=== PATIENT | female | born 1960 | race American Indian/Alaskan Native ===

== ENCOUNTER 2016-05-06 15:21 | Inpatient (IN) | payer MEDICARE ==
[2016-05-06] MEDS ORDERED: ZOFRAN IV ONE (16:41)
[2016-05-06] MEDS ORDERED: NACL 0.9% 1000 ML 1,000 ML IV ONE ×2 (16:41→17:50)
[2016-05-06] MEDS ORDERED: MORPHINE IV ONE ×2 (16:41→19:11)
[2016-05-06] MEDS ORDERED: TORADOL IV ONE (16:41)
[2016-05-06 16:52] LABS: Bilirubin,Urine NEG (Negative); Blood,Urine MOD (Negative); Ketones,Urine NEG (Negative); Leukocyte Esterase,Urine NEG (Negative); Mucus,Urine FEW /HPF; Nitrite,Urine NEG (Negative); Urobilinogen,Urine < 2.0 mg/dL (<2.0)
--- NOTE | 2016-05-06 17:02 | Emergency Department Report ---
ED Abdominal Pain HPI - General Chief Complaint: Abdominal Pain Stated Complaint: ABD PAIN Time Seen by Provider: 05/06/16 16:24 Source: patient, EMS, old records reviewed (cardiac cath April 2015: Mild nonobstructive irregularities, no significant CAD, EF 50-55%) Mode of arrival: Stretcher Limitations: No Limitations - History of Present Illness Initial Comments: 55-year-old female with a past medical history of previous CVA, HIV, diabetes, hypertension, depression, neuropathy and previous surgical history of hysterectomy, hernia repair, and presents to the hospital complaints of abdominal pain, nausea, and vomiting since this morning. Pain is rated the right upper and lower abdomen, constant, aching in sensation and rated 10/10 intensity. Pain is worse with palpation. No alleviating factors. Denies fever , hematochezia, diarrhea, melena, hematemesis, or dysuria. - Related Data Home Medications Medication Instructions Recorded Confirmed Last Taken Metformin HCl [Fortamet ER] 1,000 mg PO BID 12/15/14 04/06/15 04/06/15 Labetalol HCl 100 mg PO TID 04/06/15 04/06/15 04/06/15 Pravastatin Sodium [Pravastatin] 40 mg PO QHS 04/06/15 04/06/15 04/06/15 Previous Rx's Medication Instructions Recorded Last Taken Type Aspirin EC [Aspirin Enteric Coated 325 mg PO QDAY #30 tablet 04/09/15 Unknown Rx TAB] Allergies Allergy/AdvReac Type Severity Reaction Status Date / Time lisinopril Allergy Angioedema Verified 12/15/14 16:33 ED Review of Systems ROS: Stated complaint: ABD PAIN Other details as noted in HPI Comment: All other systems reviewed and negative Other: Constitutional: No fevers chills Eyes: No eye pain visual changes ENT: No ear pain or throat pain Neck: Denies pain Respiratory: Denies cough wheezing shortness of breath Cardiovascular: Denies chest pain, palpitations, syncope GI: As per HPI : Denies dysuria Musculoskeletal: Denies back pain, joint swelling Skin: Denies rash, lesions, erythema Neurologic: Denies headache, numbness, weakness Psychiatric: Denies suicidal ideation, hallucinations ED Past Medical Hx - Past Medical History Previous Medical History?: Yes Hx Hypertension: Yes Hx CVA: Yes Hx Diabetes: Yes Hx Psychiatric Treatment: Yes (DEPRESSION) Hx HIV: Yes (CD4 350 Apr 2016) Additional medical history: NEUROPATHY - Surgical History Past Surgical History?: Yes Additional Surgical History: C SECTION. hysterectomy. hernia repair - Social History Smoking Status: Current Every Day Smoker Substance Use Type: None - Medications Home Medications: Home Medications Medication Instructions Recorded Confirmed Last Taken Type Metformin HCl [Fortamet ER] 1,000 mg PO BID 12/15/14 04/06/15 04/06/15 History Labetalol HCl 100 mg PO TID 04/06/15 04/06/15 04/06/15 History Pravastatin Sodium [Pravastatin] 40 mg PO QHS 04/06/15 04/06/15 04/06/15 History Aspirin EC [Aspirin Enteric Coated 325 mg PO QDAY #30 tablet 04/09/15 Unknown Rx TAB] ED Physical Exam - General Limitations: No Limitations - Other Other exam information: General: No limitations, patient is alert in moderate distress secondary to pain Head exam: Atraumatic, normocephalic Eyes exam: Normal appearance, pupils equal reactive to light, extraocular movements intact ENT: Moist mucous membrane Neck exam: Normal inspection, full range of motion Respiratory exam: Clear to auscultation bilateral, no wheezes, rales, crackles Cardiovascular: Normal rate and rhythm, normal heart sounds Abdomen: Soft, nondistended, right upper and right lower quadrant tenderness, with normal bowel sounds, no rebound, or guarding Extremity: Full range of motion normal inspection no deformity Back: Normal Inspection, full range of motion, no tenderness Neurologic: Alert, oriented x3, cranial nerves intact, chronic leg weakness Psychiatric: normal affect, normal mood Skin: Warm, dry, intact ED Course Vital Signs 05/06/16 05/06/16 05/06/16 15:43 15:58 16:00 Temperature 98.2 F Pulse Rate 84 Pulse Rate [ Posterior Bilateral Throughout] Respiratory 18 Rate Respiratory Rate [Posterior Bilateral Throughout] Blood Pressure 194/100 188/103 O2 Sat by Pulse 100 99 100 Oximetry 05/06/16 05/06/16 05/06/16 16:30 17:00 17:30 Temperature Pulse Rate 91 H 93 H Pulse Rate [ Posterior Bilateral Throughout] Respiratory 10 L 31 H Rate Respiratory Rate [Posterior Bilateral Throughout] Blood Pressure 177/82 183/91 182/90 O2 Sat by Pulse 97 84 88 Oximetry 05/06/16 05/06/1617 17:41 18:00 18:03 Temperature Pulse Rate 95 H Pulse Rate [ 94 H Posterior Bilateral Throughout] Respiratory 18 20 Rate Respiratory 16 Rate [Posterior Bilateral Throughout] Blood Pressure 174/87 O2 Sat by Pulse 100 Oximetry 05/06/16 18:10 Temperature Pulse Rate Pulse Rate [ 96 H Posterior Bilateral Throughout] Respiratory Rate Respiratory 16 Rate [Posterior Bilateral Throughout] Blood Pressure O2 Sat by Pulse Oximetry - Reevaluation(s) Reevaluation #1: 05/06/16 19:03 Patient was treated morphine, Zofran, 2 L of normal saline, Lasix, and albuterol. - Consultations Consultation #1: 05/06/16 17:30 Dr. Samaniego consulted regarding acute renal insuficency ED Medical Decision Making - Lab Data Result diagrams: 05/06/16 16:52 05/06/16 16:16 Lab Results 05/06/16 05/06/16 05/06/16 Range/Units 16:16 16:16 16:16 WBC (4.5-11.0) K/mm3 RBC (3.65-5.03) M/mm3 Hgb (10.1-14.3) gm/dl Hct (30.3-42.9) % MCV (79-97) fl MCH (28-32) pg MCHC (30-34) % RDW (13.2-15.2) % Plt Count (140-440) K/mm3 Lymph % (Auto) (13.4-35.0) % Peach % (Auto) (0.0-7.3) % Eos % (Auto) (0.0-4.3) % Baso % (Auto) (0.0-1.8) % Lymph # (1.2-5.4) K/mm3 Peach # (0.0-0.8) K/mm3 Eos # (0.0-0.4) K/mm3 Baso # (0.0-0.1) K/mm3 Seg Neutrophils % (40.0-70.0) % Seg Neutrophils # (1.8-7.7) K/mm3 Sodium 141 (137-145) mmol/L Potassium 6.0 H (3.6-5.0) mmol/L Chloride 105.3 (98-107) mmol/L Carbon Dioxide 21 L (22-30) mmol/L Anion Gap 21 mmol/L BUN 31 H (7-17) mg/dL Creatinine 2.1 H (0.7-1.2) mg/dL Estimated GFR 30 ml/min BUN/Creatinine Ratio 14.76 % Glucose 136 H (65-100) mg/dL Calcium 9.7 (8.4-10.2) mg/dL Total Bilirubin 0.2 (0.1-1.2) mg/dL AST 57 H (5-40) units/L ALT 38 (7-56) units/L Alkaline Phosphatase 167 H (35-129) units/L Troponin T 0.809 H* (0.00-0.029) ng/mL Total Protein 9.4 H (6.3-8.2) g/dL Albumin 4.1 (3.9-5) g/dL Albumin/Globulin Ratio 0.8 % Triglycerides 143 (2-149) mg/dL Cholesterol 169 (50-199) mg/dL LDL Cholesterol Direct 94 (50-130) mg/dL HDL Cholesterol 47 (40-59) mg/dL Cholesterol/HDL Ratio 3.59 % Lipase 57 (13-60) units/L Urine Color Straw (Yellow) Urine Turbidity Clear (Clear) Urine pH 5.0 (5.0-7.0) Ur Specific Cameron 1.010 (1.003-1.030) Urine Protein 100 mg/dl (Negative) mg/dL Urine Glucose (UA) Neg (Negative) mg/dL Urine Ketones Neg (Negative) mg/dL Urine Blood Mod (Negative) Urine Nitrite Neg (Negative) Urine Bilirubin Neg (Negative) Urine Urobilinogen < 2.0 (<2.0) mg/dL Ur Leukocyte Esterase Neg (Negative) Urine WBC (Auto) 1.0 (0.0-6.0) /HPF Urine RBC (Auto) 9.0 (0.0-6.0) /HPF U Epithel Cells (Auto) 3.0 (0-13.0) /HPF Urine Mucus Few /HPF Urine Yeast (Budding) Few /HPF 05/06/16 Range/Units 16:52 WBC 8.5 (4.5-11.0) K/mm3 RBC 4.18 (3.65-5.03) M/mm3 Hgb 12.8 (10.1-14.3) gm/dl Hct 38.3 (30.3-42.9) % MCV 92 (79-97) fl MCH 31 (28-32) pg MCHC 33 (30-34) % RDW 14.9 (13.2-15.2) % Plt Count 275 (140-440) K/mm3 Lymph % (Auto) 12.1 L (13.4-35.0) % Peach % (Auto) 5.0 (0.0-7.3) % Eos % (Auto) 0.8 (0.0-4.3) % Baso % (Auto) 0.4 (0.0-1.8) % Lymph # 1.0 L (1.2-5.4) K/mm3 Peach # 0.4 (0.0-0.8) K/mm3 Eos # 0.1 (0.0-0.4) K/mm3 Baso # 0.0 (0.0-0.1) K/mm3 Seg Neutrophils % 81.7 H (40.0-70.0) % Seg Neutrophils # 6.9 (1.8-7.7) K/mm3 Sodium (137-145) mmol/L Potassium (3.6-5.0) mmol/L Chloride (98-107) mmol/L Carbon Dioxide (22-30) mmol/L Anion Gap mmol/L BUN (7-17) mg/dL Creatinine (0.7-1.2) mg/dL Estimated GFR ml/min BUN/Creatinine Ratio % Glucose (65-100) mg/dL Calcium (8.4-10.2) mg/dL Total Bilirubin (0.1-1.2) mg/dL AST (5-40) units/L ALT (7-56) units/L Alkaline Phosphatase (35-129) units/L Troponin T (0.00-0.029) ng/mL Total Protein (6.3-8.2) g/dL Albumin (3.9-5) g/dL Albumin/Globulin Ratio % Triglycerides (2-149) mg/dL Cholesterol (50-199) mg/dL LDL Cholesterol Direct (50-130) mg/dL HDL Cholesterol (40-59) mg/dL Cholesterol/HDL Ratio % Lipase (13-60) units/L Urine Color (Yellow) Urine Turbidity (Clear) Urine pH (5.0-7.0) Ur Specific Cameron (1.003-1.030) Urine Protein (Negative) mg/dL Urine Glucose (UA) (Negative) mg/dL Urine Ketones (Negative) mg/dL Urine Blood (Negative) Urine Nitrite (Negative) Urine Bilirubin (Negative) Urine Urobilinogen (<2.0) mg/dL Ur Leukocyte Esterase (Negative) Urine WBC (Auto) (0.0-6.0) /HPF Urine RBC (Auto) (0.0-6.0) /HPF U Epithel Cells (Auto) (0-13.0) /HPF Urine Mucus /HPF Urine Yeast (Budding) /HPF - EKG Data -: EKG Interpreted by Me ([id number] 97 [id number]) - Radiology Data Radiology results: report reviewed CT abdomen and pelvis without contrast: Cholelithiasis. Mild right hydroureter and right hydronephrosis may be secondary to recent obstruction. Small calcifications close to the mid right ureter that are not definitely within the ureter however. Previous hysterectomy - Medical Decision Making Patient has chronic troponin elevation compared to previous values in repeat is pending. Patient also has acute on chronic renal insufficiency at this time.Potassium was 6 and slightly hemolyzed. Repeat pending. Patient was treated with Lasix and albuterol for hyperkalemia pending repeat potassium level. 2 L and no Felipa also provided for hydration. Admit patient to the hospital for further hydration and treatment - Differential Diagnosis cholecystitis, appendicitis, diverticulitis, gastritis, UTI, pancreatitis Critical Care Time: No Critical care attestation.: If time is entered above; I have spent that time in minutes in the direct care of this critically ill patient, excluding procedure time. ED Disposition Clinical Impression: EDUARDO (acute kidney injury), HIV (human immunodeficiency virus infection), Renal colic on right side, Cholelithiasis, Hyperkalemia, Dehydration, Elevated troponin Disposition: OP ADMITTED IP TO THIS HOSP Is pt being admited?: Yes Condition: Stable Time of Disposition: 19:06 (Dr Villavicencio/hosp)
[2016-05-06] MEDS ORDERED: MORPHINE ONE (17:04)
[2016-05-06] MEDS ORDERED: ASPIRIN PO ONE (17:05)
[2016-05-06 17:06] LABS: Albumin 4.1 g/dL (3.9-5); Albumin/Globulin Ratio 0.8 %; BUN/Creatinine Ratio 14.76; Bilirubin,Total 0.2 mg/dL (0.1-1.2); Calcium 9.7 mg/dL (8.4-10.2); Chloride 105.3 mmol/L (98-107); Total Protein 9.4 g/dL (6.3-8.2)
[2016-05-06 17:07] LABS: Basophils % (Auto) 0.4 % (0.0-1.8); Eosinophils % (Auto) 0.8 % (0.0-4.3); Hematocrit 38.3 % (30.3-42.9); Hemoglobin 12.8 gm/dl (10.1-14.3); Mean Corpuscular HGB Conc 33 % (30-34); Mean Corpuscular Hemoglobin 31 pg (28-32); Mean Corpuscular Volume 92 fl (79-97); Platelet Count 275 K/mm3 (140-440); Red Blood Count 4.18 M/mm3 (3.65-5.03); Red Cell Distribution Width 14.9 % (13.2-15.2); White Blood Count 8.5 K/mm3 (4.5-11.0)
[2016-05-06] MEDS ORDERED: PROVENTIL IH ONE (17:50)
[2016-05-06] MEDS ORDERED: LASIX IV ONE ×2 (17:52→17:53)
--- NOTE | 2016-05-06 18:40 | Cat Scan Report ---
FINAL REPORT PROCEDURE: CT abdomen and pelvis without contrast. TECHNIQUE: Computerized axial tomography of the abdomen and pelvis was performed without intravenous contrast. This study is performed without intravascular contrast material and its sensitivity for abdominal and pelvic pathology, including neoplasms, inflammation, abscess, free fluid, thrombosis, arterial dissection and infarction, is reduced compared with a contrast enhanced study. HISTORY: Right-sided abdominal pain. COMPARISON: No prior studies are available for comparison. FINDINGS: The lung bases are clear. There are no pleural effusions. The heart size is normal. There is probably a tiny cyst in the left lobe of the liver. There are some small calcified gallstones. There is no biliary dilatation. The spleen and pancreas are grossly normal. The adrenal glands are not enlarged. Both kidneys appear normal in size and configuration. There is mild infiltration of the fat adjacent to the right kidney. There is mild right hydronephrosis and hydroureter. There are several tiny calcifications near the mid and lower portions of the right ureter. I am not convinced that these calcifications are within the ureter however. They may represent phleboliths. The right hydronephrosis and hydroureter could be secondary to a recently passed calculus. A retrograde pyelogram or intravenous pyelogram could be considered for further evaluation. The abdominal aorta has a normal caliber. There is no definite retroperitoneal adenopathy. The unopacified gastrointestinal tract is unremarkable. A normal appendix is visible. The bladder is unremarkable. The uterus has been removed. The regional skeleton appears intact. IMPRESSION: Cholelithiasis. Mild right hydronephrosis and hydroureter which may be secondary to recent obstruction. Small calcifications close to the mid right ureter which are not definitely within the ureter however. Previous hysterectomy.
--- NOTE | 2016-05-06 19:22 | Admit Criteria Form ---
Admission Criteria Documentation: RENAL FAILURE, ACUTE Clinical Indications for Admission to Inpatient Care ( Place 'X' for any and all applicable criteria): Admission is indicated for ALL (if I & II) or III of the following [A](2)(3)(4)( 5)(6)(7): [ ]I. Acute renal failure as indicated by ANY ONE of the following: [ ]a) A 3-fold rise in serum creatinine from baseline [ ]b) Serum creatinine greater than 4 mg/dL (354 micromoles/L) with an acute rise greater than 0.5 mg/dL (44.2 micromoles/L) [ ]c) Reduction of more than 75% in estimated glomerular filtration rate from baseline [ ]d) Estimated glomerular filtration rate less than 35 mL/min/1.73m2 (0.59mL/sec/1.73m2)in a child up to 18 years of age [ ]e) Anuria indicated by ALL of the following: [ ]i) Adequate volume status [ ]ii) Cessation of urine output indicated by ANY ONE of the following: [ ]1) Urine output less than 0.3 mL/kg/hr for 24 hours [ ]2) Anuria (urine output less than 0.1 mL/kg/ hr) for 12 hours [X] II. Renal failure cannot be managed in an outpatient setting or observational care setting as indicating by ANY ONE of the following: [ ]a) Altered mental status that is severe or persistent [ ]b) Volume overload or Respiratory distress (eg, clinically significant pulmonary edema) that is severe or persistent [ ]c) Cardiac arrhythmias of immediate concern [ ]d) Hemodynamic instability [ ]e) Clinically significant electrolyte abnormality that requires inpatient care (eg, hyperkalemia with severe ECG findings)[B] [ ]f) Clinically significant metabolic abnormality (eg, acidosis) that is severe or persistent [X]g) Acute treatment of renal failure (eg, renal replacement therapy) not feasible or appropriate in observational care setting [ ]h) Clinical situation too unstable or uncertain (eg, inadequate urine output, ongoing decline in renal function, etiology unclear) [ ]i) Necessary support and caregiver ability to comply with outpatient treatment cannot be arranged in observation care timeframe (eg, within 24 hours) [X]j) Other significant finding or clinical condition judged not to be within scope of observation care [ ]III.General contraindications and/or Inappropriate clinical situations for Observational Care in patients with Acute Renal Failure, when ANY ONE of the following is required: [ ]a) Prediction of prolongation of LOS based on ANY ONE of the following may be considered as a contraindication for observational care 2, 3, 4, 5, 6, 7, 8 , 9, 10, 11 [ ]i) Age > 65 yrs. [ ]ii) Patient arriving by ambulance [ ]iii) Patient with high acuity [ ]iv) Patient requiring vital sign monitoring [ ]v) Patient on IV medication [ ]b) Systolic blood pressures 180mmHg 3,12 [ ]c) Patient with altered mental status including delirium and other alteration of consciousness, (3) [ ]d) Patient whose discharge disposition will be to a care home home or rehabilitation home should not be managed in Emergency Department Observation Unit. CMS rule requires 3 days hospital stay before such placement.3,13 [ ]e) Patient with failure to thrive due to broad array of etiologies 3, 16,17 [ ]f) Inability to ambulate 3,14 Extended stay beyond goal length of stay may be needed for(13) [ ]a) Continuing uremic complications [ ]b) Care for comorbidities [ ]c) acute renal failure [ ]d) Need for dialysis The original [employer] content created by [employer] has been revised. The portions of the content which have been revised are identified through the use of italic text or in bold, and [facility] has neither reviewed nor approved the modified material. All other unmodified content is copyright [employer]. Please see references footnoted in the original [facility] edition 2016 Admission Criteria Met: Yes
[2016-05-06] MEDS ORDERED: REGLAN IV ONE (19:47)
[2016-05-06] MEDS ORDERED: BENADRYL IV ONE (19:47)
[2016-05-07] MEDS: PERCOCET 5/325 PO PRN ×2 (01:01→08:56)
[2016-05-07] MEDS ORDERED: D50W (25GM) IV PRN (07:55)
--- NOTE | 2016-05-07 08:46 | Consultation ---
History of Present Illness - Reason for Consult Consult date: 05/07/16 acute renal failure Medications and Allergies Allergies Allergy/AdvReac Type Severity Reaction Status Date / Time lisinopril Allergy Angioedema Verified 12/15/14 16:33 Home Medications Medication Instructions Recorded Confirmed Last Taken Type Metformin HCl [Fortamet ER] 1,000 mg PO BID 12/15/14 04/06/15 04/06/15 History Labetalol HCl 100 mg PO TID 04/06/15 04/06/15 04/06/15 History Pravastatin Sodium [Pravastatin] 40 mg PO QHS 04/06/15 04/06/15 04/06/15 History Aspirin EC [Aspirin Enteric Coated 325 mg PO QDAY #30 tablet 04/09/15 Unknown Rx TAB] Active Meds: Active Medications Aspirin (Ecotrin) 325 mg PO QDAY [facility] Dextrose (D50w (25gm)) 50 ml IV PRN PRN PRN Reason: Hypoglycemia Heparin Sodium (Porcine) (Heparin) 5,000 unit SUB-Q Q12HR [facility] Insulin Aspart (Novolog) 0 units SUB-Q QHS [facility] PRN Reason: Protocol Labetalol HCl (Normodyne) 100 mg PO TID [facility] Oxycodone/Acetaminophen (Percocet 5/325) 1 tab PO Q4H PRN PRN Reason: Pain, Moderate (4-6) Last Admin: 05/07/16 01:01 Dose: 1 tab Simvastatin (Zocor) 20 mg PO QHS [facility] Exam - Vital Signs Vital signs: Vital Signs Pulse Ox 100 05/06/16 15:43 Results - Lab Results 05/06/16 16:52 05/06/16 18:47 Most recent lab results Calcium 9.7 mg/dL (8.4-10.2) 05/06/16 16:16
[2016-05-07] MEDS: NORMODYNE PO SCH ×3 (08:54→22:59)
[2016-05-07] MEDS ORDERED: SODIUM CHLORIDE FLUSH SYRINGE 10 ML IV PRN (10:31)
--- NOTE | 2016-05-07 10:34 | Event Note ---
Date: 05/06/16 See H/p in reports-05/06/16 Acute renal failure High Troponin T2DM Hyperkalemia-Lab error Biliary colic sec to cholelithiasis HIV status HTN
[2016-05-07] MEDS ORDERED: ZOFRAN IV PRN (10:44)
[2016-05-07] MEDS ORDERED: NACL 0.9% 1000 ML 1,000 ML IV SCH (11:00)
[2016-05-07] MEDS: HEPARIN SUB-Q SCH ×2 (11:06→23:03)
[2016-05-07] MEDS: ECOTRIN PO SCH (11:06)
[2016-05-07 11:59] LABS: Creatine Kinase MB 56.6 ng/mL (0.0-4.0)
--- NOTE | 2016-05-07 12:25 | History and Physical Report ---
CHIEF COMPLAINT: Right flank pain. Nausea, vomiting since morning. HISTORY OF PRESENT ILLNESS: A 55-year-old female with a past medical history of cerebrovascular accident, HIV, diabetes, hypertension, depression, neuropathy comes in for abdominal pain, nausea, vomiting since morning. Pain is rated at 10/10. Pain is worse with palpation. No alleviating factors. No exacerbating factors. No diarrhea. Vomiting about 4-5 times a day. No fever. No chills. No shortness of breath. PAST MEDICAL HISTORY: Significant for type 2 diabetes mellitus, hypertension, hyperlipidemia, HIV, CD4 count was on 04/20/2016, cerebrovascular accident, depression, depression, and neuropathy. PAST SURGICAL HISTORY: Significant for , hysterectomy, and hernia repair. SOCIAL HISTORY: Current everyday smoker, a pack a day. FAMILY HISTORY: Significant for hypertension. CURRENT MEDICATIONS: Metformin 1000 mg twice a day, labetalol 100 mg 3 times a day, pravastatin 40 mg p.o. daily, aspirin one 325 p.o. daily. REVIEW OF SYSTEMS: Significant for right flank pain 10/10 associated with nausea and vomiting. No diarrhea. No chest pain. No shortness of breath. Otherwise, review of systems is essentially negative. A 14-point review of systems was done. PHYSICAL EXAMINATION: VITAL SIGNS: Temperature is 98.2, pulse is 84, respirations 18, blood pressure is 194/100, sats are 100%. HEENT: Unremarkable. Pupils equal and reactive. NECK: Supple. No lymphadenopathy, no thyromegaly. LUNGS: Clear to auscultation and percussion. Good air entry. CARDIOVASCULAR: S1, S2 heard. No gallop, no murmur, no rub. Apical impulse in left fifth intercostal space and midclavicular line. ABDOMEN: Tender in the right flank region. No guarding, no rigidity. Hernial orifices are normal. EXTREMITIES: Good pedal pulses. No pedal edema. CENTRAL NERVOUS SYSTEM: Alert and oriented x 4, nonfocal exam. IMAGING STUDIES: The patient has cholelithiasis on abdominal CAT scan. Mild right hydronephrosis and hydroureter which may be secondary to recent obstruction, small calcifications close to the mid right ureter, which are not definitely within the ureter, however, previous hysterectomy. No masses. EKG shows normal sinus rhythm, 97 per minute, LVH. LABORATORY DATA: Significant for white count of 8500, H and H is 12.8 and 38.3, platelet count is 275,000. Sodium is 141, potassium is 4.5, BUN and creatinine 31 and 2.1. A1c is 6.6. Troponin is high at 0.685. No CK enzymes available. Previous potassium was 6.0, which is corrected back to 4.5. ASSESSMENT AND PLAN: 1. Acute abdominal pain secondary to biliary colic. The patient may had right flank pain secondary to cholelithiasis and gallstone passed into the bile duct. CAT scan shows only cholelithiasis, no cholecystitis. Only IV fluids and pain management for the time being. Surgical consult if necessary. At this point, I do not think a surgery is necessary. 2. Hyperkalemia, spurious, corrected back to 4.5, hence no treatment for that. 3. Acute renal failure. IV fluids for the time being and Nephrology consult requested. 4. Type 2 diabetes, coverage and hemoglobin A1c 6.6, well controlled. 5. High troponin, 0.685. Cardiac enzymes ordered. Lexiscan ordered for 05/08/2016. 6. Hypertension. Continue antihypertensives. 7. Deep venous thrombosis prophylaxis, Lovenox 40 mg subcutaneous daily. JOB# [id number] VSM/NTS
[2016-05-07] MEDS: NOVOLOG SUB-Q SCH ×3 (12:46→23:10)
[2016-05-07] MEDS ORDERED: NON-FORMULARY (Gabapentin [Neurontin] 800 MG) PO SCH (14:30)
[2016-05-07] MEDS ORDERED: NON-FORMULARY (Dolutegravir Sodium [Tivicay] 50 MG) PO SCH (14:30)
--- NOTE | 2016-05-07 14:30 | Progress Note ---
Assessment and Plan Assessment and plan: Acute abdominal pain - Resolved - Patient has cholelithiasis on imaging but no cholecystitis - Surgery consult placed Acute kidney failure - Continue on IV fluid - Nephrology consult is placed Type 2 diabetes mellitus - Sliding scale insulin High troponin level - No chest pain - Cardiology consult placed Hypertension - Continue on antihypertensives HIV/AIDS - Patient is taking medications - Her last CD4 count was 315 Depression/ crying spells - Mental health consult placed Right knee pain likely from osteoarthritis - Continue pain medications - Physical therapy consult DVT prophylaxis - Lovenox Disposition - Continue inpatient care History Interval history: Patient states abdominal pain is getting better, she complains that she is not able to flex her knee. She says she was diagnosed with osteoarthritis. Hospitalist Physical - Physical exam Narrative exam: Not in cardiopulmonary distress. The patient appeared well nourished and normally developed. Vital signs as documented. Head exam is unremarkable. No scleral icterus . Neck is without jugular venous distension, thyromegaly, or carotid bruits. Lungs are clear to auscultation. Cardiac exam reveals regular rate and Rhythm. First and second heart sounds normal. No murmurs, rubs or gallops. Abdominal exam reveals normal bowel sounds, no masses, no organomegaly and no aortic enlargement. Extremities no swelling of the knee. 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 No focal weakness. - Constitutional Vitals: Temp Pulse Resp BP Pulse Ox 98.0 F 68 16 168/80 98 05/07/16 08:00 05/07/16 13:40 05/07/16 08:00 05/07/16 08:54 05/07/16 08:00 Results - Labs CBC & Chem 7: 05/06/16 16:52 05/06/16 18:47 Labs: Laboratory Last Values WBC 8.5 K/mm3 (4.5-11.0) 05/06/16 16:52 RBC 4.18 M/mm3 (3.65-5.03) 05/06/16 16:52 Hgb 12.8 gm/dl (10.1-14.3) 05/06/16 16:52 Hct 38.3 % (30.3-42.9) 05/06/16 16:52 MCV 92 fl (79-97) 05/06/16 16:52 MCH 31 pg (28-32) 05/06/16 16:52 MCHC 33 % (30-34) 05/06/16 16:52 RDW 14.9 % (13.2-15.2) 05/06/16 16:52 Plt Count 275 K/mm3 (140-440) 05/06/16 16:52 Lymph % (Auto) 12.1 % (13.4-35.0) L 05/06/16 16:52 [place] % (Auto) 5.0 % (0.0-7.3) 05/06/16 16:52 Eos % (Auto) 0.8 % (0.0-4.3) 05/06/16 16:52 Baso % (Auto) 0.4 % (0.0-1.8) 05/06/16 16:52 Lymph # 1.0 K/mm3 (1.2-5.4) L 05/06/16 16:52 [place] # 0.4 K/mm3 (0.0-0.8) 05/06/16 16:52 Eos # 0.1 K/mm3 (0.0-0.4) 05/06/16 16:52 Baso # 0.0 K/mm3 (0.0-0.1) 05/06/16 16:52 Seg Neutrophils % 81.7 % (40.0-70.0) H 05/06/16 16:52 Seg Neutrophils # 6.9 K/mm3 (1.8-7.7) 05/06/16 16:52 Sodium 141 mmol/L (137-145) 05/06/16 16:16 Potassium 4.5 mmol/L (3.6-5.0) D 05/06/16 18:47 Chloride 105.3 mmol/L (98-107) 05/06/16 16:16 Carbon Dioxide 21 mmol/L (22-30) L 05/06/16 16:16 Anion Gap 21 mmol/L 05/06/16 16:16 BUN 31 mg/dL (7-17) H 05/06/16 16:16 Creatinine 2.1 mg/dL (0.7-1.2) H 05/06/16 16:16 Estimated GFR 30 ml/min 05/06/16 16:16 BUN/Creatinine Ratio 14.76 % 05/06/16 16:16 Glucose 136 mg/dL (65-100) H 05/06/16 16:16 POC Glucose 142 (70-105) H 05/07/16 11:40 Hemoglobin A1c 6.6 % (4-6) H 05/07/16 09:20 Calcium 9.7 mg/dL (8.4-10.2) 05/06/16 16:16 Total Bilirubin 0.2 mg/dL (0.1-1.2) 05/06/16 16:16 AST 57 units/L (5-40) H 05/06/16 16:16 ALT 38 units/L (7-56) 05/06/16 16:16 Alkaline Phosphatase 167 units/L (35-129) H 05/06/16 16:16 Total Creatine Kinase 837 units/L (30-135) H 05/07/16 11:23 CK-MB (CK-2) 56.6 ng/mL (0.0-4.0) H 05/07/16 11:23 CK-MB (CK-2) Rel Index 6.7 (0-4) H 05/07/16 11:23 Troponin T 0.690 ng/mL (0.00-0.029) H* 05/07/16 11:23 Total Protein 9.4 g/dL (6.3-8.2) H 05/06/16 16:16 Albumin 4.1 g/dL (3.9-5) 05/06/16 16:16 Albumin/Globulin Ratio 0.8 % 05/06/16 16:16 Triglycerides 143 mg/dL (2-149) 05/06/16 16:16 Cholesterol 169 mg/dL (50-199) 05/06/16 16:16 LDL Cholesterol Direct 94 mg/dL (50-130) 05/06/16 16:16 HDL Cholesterol 47 mg/dL (40-59) 05/06/16 16:16 Cholesterol/HDL Ratio 3.59 % 05/06/16 16:16 Lipase 57 units/L (13-60) 05/06/16 16:16 Urine Color Straw (Yellow) 05/06/16 16:16 Urine Turbidity Clear (Clear) 05/06/16 16:16 Urine pH 5.0 (5.0-7.0) 05/06/16 16:16 Ur Specific [place] 1.010 (1.003-1.030) 05/06/16 16:16 Urine Protein 100 mg/dl mg/dL (Negative) 05/06/16 16:16 Urine Glucose (UA) Neg mg/dL (Negative) 05/06/16 16:16 Urine Ketones Neg mg/dL (Negative) 05/06/16 16:16 Urine Blood Mod (Negative) 05/06/16 16:16 Urine Nitrite Neg (Negative) 05/06/16 16:16 Urine Bilirubin Neg (Negative) 05/06/16 16:16 Urine Urobilinogen < 2.0 mg/dL (<2.0) 05/06/16 16:16 Ur Leukocyte Esterase Neg (Negative) 05/06/16 16:16 Urine WBC (Auto) 1.0 /HPF (0.0-6.0) 05/06/16 16:16 Urine RBC (Auto) 9.0 /HPF (0.0-6.0) 05/06/16 16:16 U Epithel Cells (Auto) 3.0 /HPF (0-13.0) 05/06/16 16:16 Urine Mucus Few /HPF 05/06/16 16:16 Urine Yeast (Budding) Few /HPF 05/06/16 16:16
[2016-05-07] MEDS: NORVASC PO SCH (16:06)
[2016-05-07] MEDS: NEURONTIN PO SCH ×2 (16:06→23:17)
[2016-05-07 16:08] LABS: Creatine Kinase MB 52.5 ng/mL (0.0-4.0)
[2016-05-07] MEDS: EPIVIR PO SCH (18:51)
[2016-05-07] MEDS: ZIAGEN PO SCH ×2 (18:51→22:59)
[2016-05-07] MEDS ORDERED: INSULIN DETEMIR 46 UNIT SQ SCH (22:00)
[2016-05-07] MEDS ORDERED: NOVOLOG SUB-Q SCH (22:00)
[2016-05-07] MEDS ORDERED: NON-FORMULARY (Pravastatin Sodium [Pravastatin] 40 MG) PO SCH (22:00)
[2016-05-07] MEDS: ZOCOR PO SCH (22:59)
[2016-05-07] MEDS: LEVEMIR SUB-Q SCH (23:02)
[2016-05-08 06:32] LABS: BUN/Creatinine Ratio 13.52; Calcium 8.5 mg/dL (8.4-10.2); Chloride 102.5 mmol/L (98-107); Potassium 4.3 mmol/L (3.6-5.0)
[2016-05-08 06:41] LABS: Basophils % (Auto) 0.8 % (0.0-1.8); Eosinophils % (Auto) 2.4 % (0.0-4.3); Hematocrit 31.6 % (30.3-42.9); Hemoglobin 10.4 gm/dl (10.1-14.3); Mean Corpuscular HGB Conc 33 % (30-34); Mean Corpuscular Hemoglobin 30 pg (28-32); Mean Corpuscular Volume 91 fl (79-97); Platelet Count 200 K/mm3 (140-440); Red Blood Count 3.48 M/mm3 (3.65-5.03); White Blood Count 4.1 K/mm3 (4.5-11.0)
[2016-05-08] MEDS: NOVOLOG SUB-Q SCH ×4 (07:30→23:46)
[2016-05-08] MEDS: NEURONTIN PO SCH ×3 (07:47→23:50)
[2016-05-08] MEDS: NORVASC PO SCH (09:42)
[2016-05-08] MEDS: NORMODYNE PO SCH ×3 (09:42→21:02)
[2016-05-08] MEDS: HEPARIN SUB-Q SCH ×2 (09:43→23:47)
[2016-05-08] MEDS: ZIAGEN PO SCH ×2 (09:43→23:45)
[2016-05-08] MEDS: EPIVIR PO SCH (09:43)
[2016-05-08] MEDS: ECOTRIN PO SCH (09:43)
--- NOTE | 2016-05-08 09:48 | Query- Renal Failure ---
Dear Date:_05/08/16 Multifocal Lens Assembler/CDS:Desirae Pringle Phone#:[phone] Exercise your independent professional judgment when responding to query. Questions asked do not imply a particular answer is desired or expected. We greatly appreciate your clarification on this issue. Clinical Documentation States: 55-year-old female with a past medical history of previous CVA, HIV, diabetes, hypertension, depression, neuropathy and previous surgical history of hysterectomy, hernia repair, and presents to the hospital complaints of abdominal pain, nausea, and vomiting since this morning. Pain is rated the right upper and lower abdomen, constant, aching in sensation and rated 10/10 intensity. Pain is worse with palpation. Clinical Findings Show: 05/06 05/08 Previous admission 04/07/15 Creat: 2.1 1.7 1.2 Please clarify if you mean: Acute Renal Failure with or due to: [ ] Tubular Necrosis [ ] Medullary Necrosis [x ] Vasomotor Nephropathy [ ] Shock Kidney [ ] Tubular Nephrosis [ ] Renal Tubular Stasis [ ] Cortical Necrosis [ ] Acute Renal Failure (unspecified) [ ] Lower Tubular Nephrosis [ ] Other: [ ] Not Applicable Present on Admission: [x ] Yes (Y) [ ] Clinically undeterminable (W) [ ] No (N) Please also document response in your Progress Notes and/or Discharge Summary and indicate if the condition was present on admission. MTDD
--- NOTE | 2016-05-08 11:01 | Consultation ---
History of Present Illness Consult date: 05/08/16 Consult reason: elevated troponin History of present illness: This is a 55yr old woman with h/o hypertension, diabetes mellitus, and HIV who presented to hospital with abdominal pain, nausea and vomiting. Initial workup in the ED shows elevated cardiac enzymes with a CK-MB 56.6 and index of 6.7. Troponin T of 0.6. Her ECG shows a sinus rhythm with LVH. No acute ischemic changes. Cardiac consultation requested. Patient has had extensive cardiac workup done at this hospital a year ago. She underwent a cardiac cath that revealed no significant coronary artery disease. Normal left ventricular systolic function EF 50-5% on echocardiogram. Patient is currently chest pain free. She denies shortness of breath and palpitations. Patient is emotional, in tears today, complaining she is unable to flex her knee. Patient reports this has been ongoing for several weeks. Medications and Allergies Allergies Allergy/AdvReac Type Severity Reaction Status Date / Time lisinopril Allergy Severe Angioedema Verified 05/07/16 11:09 Home Medications Medication Instructions Recorded Confirmed Last Taken Type Pravastatin Sodium [Pravastatin] 40 mg PO QHS 04/06/15 05/07/16 04/06/15 History Abacavir [Ziagen TAB] 300 mg PO BID 05/07/16 05/07/16 Unknown History Aspirin [Adult Low Dose Aspirin EC] 81 mg PO DAILY 05/07/16 05/07/16 Unknown History Dolutegravir Sodium [Tivicay] 50 mg PO DAILY 05/07/16 05/07/16 Unknown History Gabapentin [Neurontin] 800 mg PO Q8H 05/07/16 05/07/16 Unknown History Insulin Detemir [Levemir Flextouch] 46 unit SQ QHS 05/07/16 05/07/16 Unknown History Labetalol [Normodyne TAB] 100 mg PO BID 05/07/16 05/07/16 Unknown History Pregabalin [Lyrica] 50 mg PO TID 05/07/16 05/07/16 Unknown History amLODIPine [Norvasc] 10 mg PO DAILY 05/07/16 05/07/16 Unknown History lamiVUDine [Epivir] 150 mg PO QDAY 05/07/16 05/07/16 Unknown History Active Meds: Active Medications Abacavir Sulfate (Ziagen) 300 mg PO BID [facility] Last Admin: 05/07/16 22:59 Dose: 300 mg Amlodipine Besylate (Norvasc) 10 mg PO DAILY [facility] Last Admin: 05/07/16 16:06 Dose: 10 mg Aspirin (Ecotrin) 325 mg PO QDAY [facility] Last Admin: 05/07/16 11:06 Dose: 325 mg Dextrose (D50w (25gm)) 50 ml IV PRN PRN PRN Reason: Hypoglycemia Gabapentin (Neurontin) 800 mg PO Q8H [facility] Last Admin: 05/08/16 07:47 Dose: Not Given Heparin Sodium (Porcine) (Heparin) 5,000 unit SUB-Q Q12HR [facility] Last Admin: 05/07/16 23:03 Dose: 5,000 unit Hydromorphone HCl (Dilaudid) 1 mg IV Q3H PRN PRN Reason: Pain , Severe (7-10) Sodium Chloride (Nacl 0.9% 1000 Ml) 1,000 mls @ 100 mls/hr IV DIRECT [facility] Insulin Aspart (Novolog) 0 units SUB-Q QHS [facility] PRN Reason: Protocol Last Admin: 05/07/16 23:10 Dose: Not Given Insulin Aspart (Novolog) 0 units SUB-Q ACHS [facility] PRN Reason: Protocol Last Admin: 05/07/16 23:10 Dose: Not Given Insulin Detemir (Levemir) 46 units SUB-Q QHS [facility] Last Admin: 05/07/16 23:02 Dose: Not Given Labetalol HCl (Normodyne) 100 mg PO TID [facility] Last Admin: 05/07/16 22:59 Dose: 100 mg Lamivudine (Epivir) 150 mg PO QDAY [facility] Last Admin: 05/07/16 18:51 Dose: 150 mg Miscellaneous Medication (Dolutegravir Sodium [Tivicay]) 50 mg PO DAILY [facility] Ondansetron HCl (Zofran) 4 mg IV Q3H PRN PRN Reason: Nausea And Vomiting Oxycodone/Acetaminophen (Percocet 5/325) 1 tab PO Q4H PRN PRN Reason: Pain, Moderate (4-6) Last Admin: 05/07/16 08:56 Dose: 1 tab Simvastatin (Zocor) 20 mg PO QHS [facility] Last Admin: 05/07/16 22:59 Dose: 20 mg Sodium Chloride (Sodium Chloride Flush Syringe 10 Ml) 10 ml IV PRN PRN PRN Reason: LINE FLUSH Physical Examination Vital Signs Pulse Ox 100 05/06/16 15:43 General appearance: no acute distress HEENT: Positive: PERRL Neck: Positive: trachea midline Cardiac: Positive: Reg Rate and Rhythm Lungs: Positive: Decreased Breath Sounds Neuro: Positive: Grossly Intact Results 05/08/16 05:48 05/08/16 05:48 Cardiac Enzymes 05/07/16 05/07/16 05/07/16 Range/Units 11:23 15:27 18:58 CK-MB (CK-2) 56.6 H 52.5 H 55.0 H (0.0-4.0) ng/mL CBC 05/08/16 Range/Units 05:48 WBC 4.1 L (4.5-11.0) K/mm3 RBC 3.48 L (3.65-5.03) M/mm3 Hgb 10.4 (10.1-14.3) gm/dl Hct 31.6 D (30.3-42.9) % Plt Count 200 (140-440) K/mm3 Lymph # 1.4 (1.2-5.4) K/mm3 [place] # 0.6 (0.0-0.8) K/mm3 Eos # 0.1 (0.0-0.4) K/mm3 Baso # 0.0 (0.0-0.1) K/mm3 Comprehensive Metabolic Panel 05/08/16 Range/Units 05:48 Sodium 137 (137-145) mmol/L Potassium 4.3 (3.6-5.0) mmol/L Chloride 102.5 (98-107) mmol/L Carbon Dioxide 21 L (22-30) mmol/L BUN 23 H (7-17) mg/dL Creatinine 1.7 H (0.7-1.2) mg/dL Glucose 124 H (65-100) mg/dL Calcium 8.5 (8.4-10.2) mg/dL Assessment and Plan Abdominal pain with nausea vomiting Elevated troponin, chronic LHC 04/2015 -no significant CAD Echo 04/2015 -EF 50-55% HIV disease Hypertension DM
--- NOTE | 2016-05-08 13:41 | Progress Note ---
Assessment and Plan Assessment and plan: Acute abdominal pain - Resolved - Patient has cholelithiasis on imaging but no cholecystitis - Surgery consult placed Acute kidney failure - Continue on IV fluid - Improving - Nephrology consult appreciated Type 2 diabetes mellitus - Sliding scale insulin High troponin level - No chest pain - Cardiology consult appreciated Hypertension - Continue on antihypertensives HIV/AIDS - Patient is taking medications - Her last CD4 count was 315 Depression/ crying spells - Mental health consult placed Right knee pain likely from osteoarthritis - Continue pain medications - Physical therapy consult - Orthopedics consult placed DVT prophylaxis - Lovenox Disposition - Continue inpatient care History Interval history: Patient states abdominal pain is getting better, she complains that she is not able to flex her knees. She says she was diagnosed with osteoarthritis. Hospitalist Physical - Physical exam Narrative exam: Not in cardiopulmonary distress. The patient appeared well nourished and normally developed. Vital signs as documented. Head exam is unremarkable. No scleral icterus . Neck is without jugular venous distension, thyromegaly, or carotid bruits. Lungs are clear to auscultation. Cardiac exam reveals regular rate and Rhythm. First and second heart sounds normal. No murmurs, rubs or gallops. Abdominal exam reveals normal bowel sounds, no masses, no organomegaly and no aortic enlargement. Extremities no swelling of the knee. MANAGER RELATIONSHIP: Alert and oriented 3. No focal weakness. - Constitutional Vitals: Temp Pulse Resp BP Pulse Ox 98.5 F 72 18 145/77 98 05/08/16 08:00 05/08/16 08:00 05/08/16 08:00 05/08/16 08:00 05/08/16 08:00 General appearance: Present: no acute distress Results - Labs CBC & Chem 7: 05/08/16 05:48 05/08/16 05:48 Labs: Laboratory Last Values WBC 4.1 K/mm3 (4.5-11.0) L 05/08/16 05:48 RBC 3.48 M/mm3 (3.65-5.03) L 05/08/16 05:48 Hgb 10.4 gm/dl (10.1-14.3) 05/08/16 05:48 Hct 31.6 % (30.3-42.9) D 05/08/16 05:48 MCV 91 fl (79-97) 05/08/16 05:48 MCH 30 pg (28-32) 05/08/16 05:48 MCHC 33 % (30-34) 05/08/16 05:48 RDW 15.0 % (13.2-15.2) 05/08/16 05:48 Plt Count 200 K/mm3 (140-440) 05/08/16 05:48 Lymph % (Auto) 32.9 % (13.4-35.0) 05/08/16 05:48 [place] % (Auto) 14.5 % (0.0-7.3) H 05/08/16 05:48 Eos % (Auto) 2.4 % (0.0-4.3) 05/08/16 05:48 Baso % (Auto) 0.8 % (0.0-1.8) 05/08/16 05:48 Lymph # 1.4 K/mm3 (1.2-5.4) 05/08/16 05:48 [place] # 0.6 K/mm3 (0.0-0.8) 05/08/16 05:48 Eos # 0.1 K/mm3 (0.0-0.4) 05/08/16 05:48 Baso # 0.0 K/mm3 (0.0-0.1) 05/08/16 05:48 Seg Neutrophils % 49.4 % (40.0-70.0) 05/08/16 05:48 Seg Neutrophils # 2.0 K/mm3 (1.8-7.7) 05/08/16 05:48 Sodium 137 mmol/L (137-145) 05/08/16 05:48 Potassium 4.3 mmol/L (3.6-5.0) 05/08/16 05:48 Chloride 102.5 mmol/L (98-107) 05/08/16 05:48 Carbon Dioxide 21 mmol/L (22-30) L 05/08/16 05:48 Anion Gap 18 mmol/L 05/08/16 05:48 BUN 23 mg/dL (7-17) H 05/08/16 05:48 Creatinine 1.7 mg/dL (0.7-1.2) H 05/08/16 05:48 Estimated GFR 38 ml/min 05/08/16 05:48 BUN/Creatinine Ratio 13.52 % 05/08/16 05:48 Glucose 124 mg/dL (65-100) H 05/08/16 05:48 POC Glucose 153 (70-105) H 05/08/16 11:56 Hemoglobin A1c 6.6 % (4-6) H 05/07/16 09:20 Calcium 8.5 mg/dL (8.4-10.2) 05/08/16 05:48 Total Bilirubin 0.2 mg/dL (0.1-1.2) 05/06/16 16:16 AST 57 units/L (5-40) H 05/06/16 16:16 ALT 38 units/L (7-56) 05/06/16 16:16 Alkaline Phosphatase 167 units/L (35-129) H 05/06/16 16:16 Total Creatine Kinase 826 units/L (30-135) H 05/07/16 18:58 CK-MB (CK-2) 55.0 ng/mL (0.0-4.0) H 05/07/16 18:58 CK-MB (CK-2) Rel Index 6.6 (0-4) H 05/07/16 18:58 Troponin T 0.765 ng/mL (0.00-0.029) H* 05/07/16 18:58 Total Protein 9.4 g/dL (6.3-8.2) H 05/06/16 16:16 Albumin 4.1 g/dL (3.9-5) 05/06/16 16:16 Albumin/Globulin Ratio 0.8 % 05/06/16 16:16 Triglycerides 143 mg/dL (2-149) 05/06/16 16:16 Cholesterol 169 mg/dL (50-199) 05/06/16 16:16 LDL Cholesterol Direct 94 mg/dL (50-130) 05/06/16 16:16 HDL Cholesterol 47 mg/dL (40-59) 05/06/16 16:16 Cholesterol/HDL Ratio 3.59 % 05/06/16 16:16 Lipase 57 units/L (13-60) 05/06/16 16:16 Urine Color Straw (Yellow) 05/06/16 16:16 Urine Turbidity Clear (Clear) 05/06/16 16:16 Urine pH 5.0 (5.0-7.0) 05/06/16 16:16 Ur Specific [place] 1.010 (1.003-1.030) 05/06/16 16:16 Urine Protein 100 mg/dl mg/dL (Negative) 05/06/16 16:16 Urine Glucose (UA) Neg mg/dL (Negative) 05/06/16 16:16 Urine Ketones Neg mg/dL (Negative) 05/06/16 16:16 Urine Blood Mod (Negative) 05/06/16 16:16 Urine Nitrite Neg (Negative) 05/06/16 16:16 Urine Bilirubin Neg (Negative) 05/06/16 16:16 Urine Urobilinogen < 2.0 mg/dL (<2.0) 05/06/16 16:16 Ur Leukocyte Esterase Neg (Negative) 05/06/16 16:16 Urine WBC (Auto) 1.0 /HPF (0.0-6.0) 05/06/16 16:16 Urine RBC (Auto) 9.0 /HPF (0.0-6.0) 05/06/16 16:16 U Epithel Cells (Auto) 3.0 /HPF (0-13.0) 05/06/16 16:16 Urine Mucus Few /HPF 05/06/16 16:16 Urine Yeast (Budding) Few /HPF 05/06/16 16:16 Creatinine is trending down
--- NOTE | 2016-05-08 13:54 | Consultation ---
History of Present Illness Consult date: 05/08/16 Reason for consult: gallstones Chief complaint: Abdominal pain. - History of present illness History of present illness: 55 years old female admitted 2 days ago with right upper quadrant abdominal pain , nausea and vomiting. Patient with history of HIV, diabetes, hypertension and coronary artery disease. Patient had a CAT scan which showed gallstones without cholecystitis. Past History Past Medical History: CAD, diabetes, HIV/AIDS, hypertension, hyperlipidemia Past Surgical History: , hysterectomy Medications and Allergies Allergies Allergy/AdvReac Type Severity Reaction Status Date / Time lisinopril Allergy Severe Angioedema Verified 05/07/16 11:09 Home Medications Medication Instructions Recorded Confirmed Last Taken Type Pravastatin Sodium [Pravastatin] 40 mg PO QHS 04/06/15 05/07/16 04/06/15 History Abacavir [Ziagen TAB] 300 mg PO BID 05/07/16 05/07/16 Unknown History Aspirin [Adult Low Dose Aspirin EC] 81 mg PO DAILY 05/07/16 05/07/16 Unknown History Dolutegravir Sodium [Tivicay] 50 mg PO DAILY 05/07/16 05/07/16 Unknown History Gabapentin [Neurontin] 800 mg PO Q8H 05/07/16 05/07/16 Unknown History Insulin Detemir [Levemir Flextouch] 46 unit SQ QHS 05/07/16 05/07/16 Unknown History Labetalol [Normodyne TAB] 100 mg PO BID 05/07/16 05/07/16 Unknown History Pregabalin [Lyrica] 50 mg PO TID 05/07/16 05/07/16 Unknown History amLODIPine [Norvasc] 10 mg PO DAILY 05/07/16 05/07/16 Unknown History lamiVUDine [Epivir] 150 mg PO QDAY 05/07/16 05/07/16 Unknown History Active Meds: Active Medications Abacavir Sulfate (Ziagen) 300 mg PO BID [facility] Last Admin: 05/08/16 09:43 Dose: 300 mg Amlodipine Besylate (Norvasc) 10 mg PO DAILY [facility] Last Admin: 05/08/16 09:42 Dose: 10 mg Aspirin (Ecotrin) 325 mg PO QDAY [facility] Last Admin: 05/08/16 09:43 Dose: 325 mg Dextrose (D50w (25gm)) 50 ml IV PRN PRN PRN Reason: Hypoglycemia Gabapentin (Neurontin) 800 mg PO Q8H [facility] Last Admin: 05/08/16 07:47 Dose: Not Given Heparin Sodium (Porcine) (Heparin) 5,000 unit SUB-Q Q12HR [facility] Last Admin: 05/08/16 09:43 Dose: 5,000 unit Hydromorphone HCl (Dilaudid) 1 mg IV Q3H PRN PRN Reason: Pain , Severe (7-10) Sodium Chloride (Nacl 0.9% 1000 Ml) 1,000 mls @ 100 mls/hr IV DIRECT [facility] Insulin Aspart (Novolog) 0 units SUB-Q ACHS [facility] PRN Reason: Protocol Last Admin: 05/08/16 11:30 Dose: 2 units Insulin Detemir (Levemir) 46 units SUB-Q QHS [facility] Last Admin: 05/07/16 23:02 Dose: Not Given Labetalol HCl (Normodyne) 100 mg PO TID [facility] Last Admin: 05/08/16 09:42 Dose: 100 mg Lamivudine (Epivir) 150 mg PO QDAY [facility] Last Admin: 05/08/16 09:43 Dose: 150 mg Miscellaneous Medication (Dolutegravir Sodium [Tivicay]) 50 mg PO DAILY [facility] Ondansetron HCl (Zofran) 4 mg IV Q3H PRN PRN Reason: Nausea And Vomiting Oxycodone/Acetaminophen (Percocet 5/325) 1 tab PO Q4H PRN PRN Reason: Pain, Moderate (4-6) Last Admin: 05/07/16 08:56 Dose: 1 tab Simvastatin (Zocor) 20 mg PO QHS [facility] Last Admin: 05/07/16 22:59 Dose: 20 mg Sodium Chloride (Sodium Chloride Flush Syringe 10 Ml) 10 ml IV PRN PRN PRN Reason: LINE FLUSH Review of Systems All systems: negative (present complaint) - Psychiatric anxiety, depression Exam Vital Signs Pulse Ox 100 05/06/16 15:43 - General physical appearance Positive: well developed, well nourished, no distress - Eyes Positive: PERRL, normal occular movement - ENT Positive: normal pinna, normal nares, normal mucosa, no hearing loss, no congestion - Neck Positive: no masses, no bruits, trachea midline, no venous distension - Cardiovascular Rhythm: regular Heart Sounds: Present: S1 & S2, systolic murmur - Extremities Extremities: no ischemia, No edema - Breasts Breasts: deferred - Abdomen Abdomen: Present: soft, bowel sounds normal - Genitourinary Female Genitourinary: deferred - Integumentary no rash, no growths, no abnormal pigmentation - Neurologic Neurologic: alert and oriented to time, place and person, motor strength and sensation are grossly intact - Musculoskeletal normal gait, normal posture - Psychiatric Psychiatric: appropriate mood/affect, intact judgment & insight Results - Labs 05/08/16 05:48 05/09/16 05:42 Abnormal lab results 05/07/16 05/07/16 05/07/16 Range/Units 15:27 16:31 18:58 WBC (4.5-11.0) K/mm3 RBC (3.65-5.03) M/mm3 [place] % (Auto) (0.0-7.3) % Carbon Dioxide (22-30) mmol/L BUN (7-17) mg/dL Creatinine (0.7-1.2) mg/dL Glucose (65-100) mg/dL POC Glucose 134 H (70-105) Total Creatine Kinase 788 H 826 H (30-135) units/L CK-MB (CK-2) 52.5 H 55.0 H (0.0-4.0) ng/mL CK-MB (CK-2) Rel Index 6.6 H 6.6 H (0-4) Troponin T 0.738 H* 0.765 H* (0.00-0.029) ng/mL 05/07/16 05/08/16 05/08/16 Range/Units 22:25 05:11 05:48 WBC (4.5-11.0) K/mm3 RBC (3.65-5.03) M/mm3 [place] % (Auto) (0.0-7.3) % Carbon Dioxide 21 L (22-30) mmol/L BUN 23 H (7-17) mg/dL Creatinine 1.7 H (0.7-1.2) mg/dL Glucose 124 H (65-100) mg/dL POC Glucose 120 H 62 L (70-105) Total Creatine Kinase (30-135) units/L CK-MB (CK-2) (0.0-4.0) ng/mL CK-MB (CK-2) Rel Index (0-4) Troponin T (0.00-0.029) ng/mL 05/08/16 05/08/16 Range/Units 05:48 11:56 WBC 4.1 L (4.5-11.0) K/mm3 RBC 3.48 L (3.65-5.03) M/mm3 [place] % (Auto) 14.5 H (0.0-7.3) % Carbon Dioxide (22-30) mmol/L BUN (7-17) mg/dL Creatinine (0.7-1.2) mg/dL Glucose (65-100) mg/dL POC Glucose 153 H (70-105) Total Creatine Kinase (30-135) units/L CK-MB (CK-2) (0.0-4.0) ng/mL CK-MB (CK-2) Rel Index (0-4) Troponin T (0.00-0.029) ng/mL Diabetes panel 05/08/16 Range/Units 05:48 Sodium 137 (137-145) mmol/L Potassium 4.3 (3.6-5.0) mmol/L Chloride 102.5 (98-107) mmol/L Carbon Dioxide 21 L (22-30) mmol/L BUN 23 H (7-17) mg/dL Creatinine 1.7 H (0.7-1.2) mg/dL Glucose 124 H (65-100) mg/dL Calcium 8.5 (8.4-10.2) mg/dL Calcium panel 05/08/16 Range/Units 05:48 Calcium 8.5 (8.4-10.2) mg/dL Pituitary panel 05/08/16 Range/Units 05:48 Sodium 137 (137-145) mmol/L Potassium 4.3 (3.6-5.0) mmol/L Chloride 102.5 (98-107) mmol/L Carbon Dioxide 21 L (22-30) mmol/L BUN 23 H (7-17) mg/dL Creatinine 1.7 H (0.7-1.2) mg/dL Glucose 124 H (65-100) mg/dL Calcium 8.5 (8.4-10.2) mg/dL Adrenal panel 05/08/16 Range/Units 05:48 Sodium 137 (137-145) mmol/L Potassium 4.3 (3.6-5.0) mmol/L Chloride 102.5 (98-107) mmol/L Carbon Dioxide 21 L (22-30) mmol/L BUN 23 H (7-17) mg/dL Creatinine 1.7 H (0.7-1.2) mg/dL Glucose 124 H (65-100) mg/dL Calcium 8.5 (8.4-10.2) mg/dL - Imaging CT scan - abdomen: report reviewed Assessment and Plan Impression: #1. Biliary colic secondary to gallstones. #2. Diabetes. #3. HIV/AIDS. #4. Hypertension. #5. Hypercholesterolemia. Plans: Scrotal for laparoscopic cholecystectomy next Wednesday. Patient explained the operative procedure. Also discussed risk and complications. Requested us to perform the procedure.
--- NOTE | 2016-05-08 14:04 | Progress Note ---
Assessment and Plan Impression: * Acute kidney injury --Baseline SCr 1.1-1.2 in 2016 * Right hydronephrosis secondary to recent obstruction * Ecoli UTI * HIV * Type II diabetes mellitus Plan: * Renal function has improved * Continue abx * Repeat renal u/s * Consider urology consultation if hydronephrosis persists * AM labs ordered Subjective Date of service: 05/08/16 Interval history: Patient has no complaints. Objective - Vital Signs Vital signs: Vital Signs - 12hr 05/08/16 08:00 Temperature 98.5 F Pulse Rate [ 72 Right Radial] Respiratory 18 Rate Blood Pressure 145/77 [Left Arm] O2 Sat by Pulse 98 Oximetry - General Appearance General appearance: well-developed, appears stated age EENT: ATNC Respiratory: Present: Clear to Ascultation Cardiology: regular, S1S2 Gastrointestinal: normal, no tenderness, no distended Integumentary: no rash Psychiatric: cooperative - Lab 05/08/16 05:48 05/09/16 05:42 Most recent lab results Calcium 8.5 mg/dL (8.4-10.2) 05/08/16 05:48
--- NOTE | 2016-05-08 16:35 | XRay Report ---
Bilateral knee: History: Knee pain and stiffness. Findings: No articular abnormality the knee joints . Generalized osteopenia. Focal ill-defined area of radiolucency noted at the distal diaphyses of left femur in the supracondylar region and also at the left tibial plateau with areas of calcification suggestive of acute/subacute bone infarct. Suspicion of less pronounced similar finding at the right knee. No joint effusion or soft tissue calcifications are periosteal reaction. Impression: Findings as detailed above.
--- NOTE | 2016-05-08 18:05 | Event Note ---
Date: 05/08/16 For consultation request received, came in to see her. Patient is not in room, advised she is in radiology/vascular lab. As per internal medicine, she was able to walk with a walker/physical therapy help. Chart reviewed. No x-rays of knee are available. Discussed with her primary care, x-rays the knees are being ordered. Once completed will review x-rays and complete the consult.
[2016-05-08] MEDS: DILAUDID IV PRN (21:03)
[2016-05-08] MEDS ORDERED: ALUM-MAG HYDROX-SIMETH 200-200-20MG/5ML PO PRN (23:45)
[2016-05-08] MEDS: LEVEMIR SUB-Q SCH (23:46)
[2016-05-08] MEDS: ZOCOR PO SCH (23:48)
[2016-05-09 06:33] LABS: BUN/Creatinine Ratio 12.77; Calcium 8.5 mg/dL (8.4-10.2); Chloride 101.3 mmol/L (98-107); Potassium 4.7 mmol/L (3.6-5.0)
[2016-05-09] MEDS: NEURONTIN PO SCH ×3 (06:47→22:51)
[2016-05-09] MEDS: NOVOLOG SUB-Q SCH ×4 (07:30→21:12)
--- NOTE | 2016-05-09 08:46 | Progress Note ---
Assessment and Plan IMP: #1. Cholelithiasis and cholecystitis.#2. HIV?AIDS. #3. Diabetes. #4. CAD. PLAN: Scheduled for laparoscopic cholecystectomy on Wednesday05-11-2016 at 10 am. Subjective Date of service: 05/09/16 Patient Reports: Positive: no new complaints Objective Vital Signs - 12hr 05/08/16 05/08/16 05/08/16 21:02 21:03 21:12 Temperature Pulse Rate 78 Pulse Rate [ Left Radial] Respiratory 16 Rate Blood Pressure 144/83 Blood Pressure [Left Arm] O2 Sat by Pulse 100 Oximetry 05/09/16 00:00 Temperature 98.3 F Pulse Rate Pulse Rate [ 74 Left Radial] Respiratory 18 Rate Blood Pressure Blood Pressure 148/82 [Left Arm] O2 Sat by Pulse 97 Oximetry - Abdomen soft, tender (minimal RUQ tenderness), bowel sounds normal - Labs 05/08/16 05:48 05/09/16 05:42 Diabetes panel 05/09/16 Range/Units 05:42 Sodium 138 (137-145) mmol/L Potassium 4.7 (3.6-5.0) mmol/L Chloride 101.3 (98-107) mmol/L Carbon Dioxide 22 (22-30) mmol/L BUN 23 H (7-17) mg/dL Creatinine 1.8 H (0.7-1.2) mg/dL Glucose 101 H (65-100) mg/dL Calcium 8.5 (8.4-10.2) mg/dL Calcium panel 05/09/16 Range/Units 05:42 Calcium 8.5 (8.4-10.2) mg/dL Pituitary panel 05/09/16 Range/Units 05:42 Sodium 138 (137-145) mmol/L Potassium 4.7 (3.6-5.0) mmol/L Chloride 101.3 (98-107) mmol/L Carbon Dioxide 22 (22-30) mmol/L BUN 23 H (7-17) mg/dL Creatinine 1.8 H (0.7-1.2) mg/dL Glucose 101 H (65-100) mg/dL Calcium 8.5 (8.4-10.2) mg/dL Adrenal panel 05/09/16 Range/Units 05:42 Sodium 138 (137-145) mmol/L Potassium 4.7 (3.6-5.0) mmol/L Chloride 101.3 (98-107) mmol/L Carbon Dioxide 22 (22-30) mmol/L BUN 23 H (7-17) mg/dL Creatinine 1.8 H (0.7-1.2) mg/dL Glucose 101 H (65-100) mg/dL Calcium 8.5 (8.4-10.2) mg/dL
--- NOTE | 2016-05-09 09:09 | Consultation ---
History of Present Illness - HPI Consult date: 05/09/16 Consult reason: joint pain Past History Past Medical History: CAD, diabetes, HIV/AIDS, hypertension, hyperlipidemia Past Surgical History: , hysterectomy Medications and Allergies Allergies Allergy/AdvReac Type Severity Reaction Status Date / Time lisinopril Allergy Severe Angioedema Verified 05/07/16 11:09 Home Medications Medication Instructions Recorded Confirmed Last Taken Type Pravastatin Sodium [Pravastatin] 40 mg PO QHS 04/06/15 05/07/16 04/06/15 History Abacavir [Ziagen TAB] 300 mg PO BID 05/07/16 05/07/16 Unknown History Aspirin [Adult Low Dose Aspirin EC] 81 mg PO DAILY 05/07/16 05/07/16 Unknown History Dolutegravir Sodium [Tivicay] 50 mg PO DAILY 05/07/16 05/07/16 Unknown History Gabapentin [Neurontin] 800 mg PO Q8H 05/07/16 05/07/16 Unknown History Insulin Detemir [Levemir Flextouch] 46 unit SQ QHS 05/07/16 05/07/16 Unknown History Labetalol [Normodyne TAB] 100 mg PO BID 05/07/16 05/07/16 Unknown History Pregabalin [Lyrica] 50 mg PO TID 05/07/16 05/07/16 Unknown History amLODIPine [Norvasc] 10 mg PO DAILY 05/07/16 05/07/16 Unknown History lamiVUDine [Epivir] 150 mg PO QDAY 05/07/16 05/07/16 Unknown History Active Meds: Active Medications Abacavir Sulfate (Ziagen) 300 mg PO BID [facility] Last Admin: 05/08/16 23:45 Dose: 300 mg Al Hydrox/Mg Hydrox/Simethicone (Alum-Mag Hydrox-Simeth [id number]/5ml) 15 ml PO Q4H PRN PRN Reason: Indigestion Amlodipine Besylate (Norvasc) 10 mg PO DAILY [facility] Last Admin: 05/08/16 09:42 Dose: 10 mg Aspirin (Ecotrin) 325 mg PO QDAY [facility] Last Admin: 05/08/16 09:43 Dose: 325 mg Dextrose (D50w (25gm)) 50 ml IV PRN PRN PRN Reason: Hypoglycemia Gabapentin (Neurontin) 800 mg PO Q8H [facility] Last Admin: 05/09/16 06:47 Dose: 800 mg Heparin Sodium (Porcine) (Heparin) 5,000 unit SUB-Q Q12HR [facility] Last Admin: 05/08/16 23:47 Dose: 5,000 unit Hydromorphone HCl (Dilaudid) 1 mg IV Q3H PRN PRN Reason: Pain , Severe (7-10) Last Admin: 05/08/16 21:03 Dose: 1 mg Sodium Chloride (Nacl 0.9% 1000 Ml) 1,000 mls @ 100 mls/hr IV DIRECT [facility] Insulin Aspart (Novolog) 0 units SUB-Q ACHS [facility] PRN Reason: Protocol Last Admin: 05/08/16 23:46 Dose: Not Given Insulin Detemir (Levemir) 46 units SUB-Q QHS [facility] Last Admin: 05/08/16 23:46 Dose: Not Given Labetalol HCl (Normodyne) 100 mg PO TID [facility] Last Admin: 05/08/16 21:02 Dose: 100 mg Lamivudine (Epivir) 150 mg PO QDAY [facility] Last Admin: 05/08/16 09:43 Dose: 150 mg Miscellaneous Medication (Dolutegravir Sodium [Tivicay]) 50 mg PO DAILY [facility] Ondansetron HCl (Zofran) 4 mg IV Q3H PRN PRN Reason: Nausea And Vomiting Oxycodone/Acetaminophen (Percocet 5/325) 1 tab PO Q4H PRN PRN Reason: Pain, Moderate (4-6) Last Admin: 05/07/16 08:56 Dose: 1 tab Simvastatin (Zocor) 20 mg PO QHS [facility] Last Admin: 05/08/16 23:48 Dose: 20 mg Sodium Chloride (Sodium Chloride Flush Syringe 10 Ml) 10 ml IV PRN PRN PRN Reason: LINE FLUSH Assessment and Plan 55 year old female admited due to multiple medical problems, including kidney failure, depression , diabetes, Complain of bilateral knee pain,. and inability to flex knees. Alert orientated female in NAD, knees held in hyperextension c contracted quadriceps. Normal neuro exam; normal function of hips, and feet. Rx of knees are unremarkable.\ Difficult to find an explanation for an isolated knee extension contracture Continue Physical therapy, an observation.
--- NOTE | 2016-05-09 09:54 | Progress Note ---
Assessment and Plan 1. Normal coronary x-rays normal LV ejection fraction by cardiac cath 2. Acute renal failure resolved 3. Positive HIV 4. Gallstones Plan. No further cardiac or carpal indicated cardiac status stable with signoff Subjective Date of service: 05/09/16 Interval history: No cardiac symptoms. Objective Vital Signs Temp Pulse Pulse Pulse Resp BP BP 05/09/16 08:10 97.9 F 71 18 05/09/16 00:00 98.3 F 74 18 148/82 05/08/16 21:12 05/08/16 21:03 16 05/08/16 21:02 78 144/83 05/08/16 15:34 98.1 F 72 18 128/65 BP Pulse Ox 05/09/16 08:10 142/85 100 05/09/16 00:00 97 05/08/16 21:12 100 05/08/16 21:03 05/08/16 21:02 05/08/16 15:34 - Physical Examination General: Appears Well, No Apparent Distress HEENT: Positive: PERRL Neck: Positive: trachea midline Cardiac: Positive: Regular Rate, S1/S2 Lungs: Positive: Normal Exam Neuro: Positive: Grossly Intact Skin: Positive: Clear Extremities: Present: normal. Absent: edema - Labs and Meds Comprehensive Metabolic Panel 05/09/16 Range/Units 05:42 Sodium 138 (137-145) mmol/L Potassium 4.7 (3.6-5.0) mmol/L Chloride 101.3 (98-107) mmol/L Carbon Dioxide 22 (22-30) mmol/L BUN 23 H (7-17) mg/dL Creatinine 1.8 H (0.7-1.2) mg/dL Glucose 101 H (65-100) mg/dL Calcium 8.5 (8.4-10.2) mg/dL
[2016-05-09] MEDS: NORMODYNE PO SCH ×3 (09:56→21:07)
[2016-05-09] MEDS: ECOTRIN PO SCH (09:56)
[2016-05-09] MEDS: NORVASC PO SCH (09:56)
[2016-05-09] MEDS: HEPARIN SUB-Q SCH ×2 (09:58→21:06)
[2016-05-09] MEDS: ZIAGEN PO SCH ×2 (10:00→21:07)
[2016-05-09] MEDS: EPIVIR PO SCH (10:00)
--- NOTE | 2016-05-09 13:19 | Progress Note ---
Assessment and Plan Impression: * Acute kidney injury --Baseline SCr 1.1-1.2 in 2016 * Right hydronephrosis secondary to recent obstruction * Ecoli UTI * HIV * Type II diabetes mellitus Plan: * Renal function has improved * Continue abx * Repeat renal u/s * Consider urology consultation if hydronephrosis persists * AM labs ordered * ok to dc from renal standpoint with outpatient follow up Subjective Date of service: 05/09/16 Principal diagnosis: katty Interval history: resting well in bed today Objective - Exam Narrative Exam: General appearance: well-developed, appears stated age EENT: ATNC Respiratory: Present: Clear to Ascultation Cardiology: regular, S1S2 Gastrointestinal: normal, no tenderness, no distended Integumentary: no rash Psychiatric: cooperative - Vital Signs Vital signs: Vital Signs - 12hr 05/09/16 05/09/16 05/09/16 08:10 09:56 10:00 Temperature 97.9 F Pulse Rate 71 Pulse Rate [ 71 Right Radial] Respiratory 18 Rate Blood Pressure 142/85 Blood Pressure 142/85 [Right Arm] O2 Sat by Pulse 100 100 Oximetry - Lab 05/08/16 05:48 05/09/16 05:42 Most recent lab results Calcium 8.5 mg/dL (8.4-10.2) 05/09/16 05:42
--- NOTE | 2016-05-09 14:08 | Progress Note ---
Assessment and Plan Assessment and plan: Acute abdominal pain - Resolved - Patient has cholelithiasis on imaging but no cholecystitis - Surgery consult appreciated laparoscopic cholecystectomy will be done on Wednesday Acute kidney failure - Continue on IV fluid - Improving - Nephrology consult appreciated Type 2 diabetes mellitus - Sliding scale insulin High troponin level - No chest pain - Cardiology consult appreciated Hypertension - Continue on antihypertensives HIV/AIDS - Patient is taking medications - Her last CD4 count was 315 Depression/ crying spells - Mental health consult placed Right knee pain likely from osteoarthritis - Continue pain medications - Physical therapy consult - Orthopedics consult appreciated DVT prophylaxis - Lovenox Disposition - Continue inpatient care History Interval history: No abdominal pain, she complained that she is not able to flex her knees. Hospitalist Physical - Physical exam Narrative exam: Not in cardiopulmonary distress. The patient appeared well nourished and normally developed. Vital signs as documented. Head exam is unremarkable. No scleral icterus . Neck is without jugular venous distension, thyromegaly, or carotid bruits. Lungs are clear to auscultation. Cardiac exam reveals regular rate and Rhythm. First and second heart sounds normal. No murmurs, rubs or gallops. Abdominal exam reveals normal bowel sounds, no masses, no organomegaly and no aortic enlargement. Extremities no swelling of the knee. 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 No focal weakness. - Constitutional Vitals: Temp Pulse Resp BP Pulse Ox 97.9 F 71 18 142/85 100 05/09/16 08:10 05/09/16 13:21 05/09/16 08:10 05/09/16 09:56 05/09/16 10:00 General appearance: Present: no acute distress Results - Labs CBC & Chem 7: 05/08/16 05:48 05/09/16 05:42 Labs: Laboratory Last Values WBC 4.1 K/mm3 (4.5-11.0) L 05/08/16 05:48 RBC 3.48 M/mm3 (3.65-5.03) L 05/08/16 05:48 Hgb 10.4 gm/dl (10.1-14.3) 05/08/16 05:48 Hct 31.6 % (30.3-42.9) D 05/08/16 05:48 MCV 91 fl (79-97) 05/08/16 05:48 MCH 30 pg (28-32) 05/08/16 05:48 MCHC 33 % (30-34) 05/08/16 05:48 RDW 15.0 % (13.2-15.2) 05/08/16 05:48 Plt Count 200 K/mm3 (140-440) 05/08/16 05:48 Lymph % (Auto) 32.9 % (13.4-35.0) 05/08/16 05:48 [place] % (Auto) 14.5 % (0.0-7.3) H 05/08/16 05:48 Eos % (Auto) 2.4 % (0.0-4.3) 05/08/16 05:48 Baso % (Auto) 0.8 % (0.0-1.8) 05/08/16 05:48 Lymph # 1.4 K/mm3 (1.2-5.4) 05/08/16 05:48 [place] # 0.6 K/mm3 (0.0-0.8) 05/08/16 05:48 Eos # 0.1 K/mm3 (0.0-0.4) 05/08/16 05:48 Baso # 0.0 K/mm3 (0.0-0.1) 05/08/16 05:48 Seg Neutrophils % 49.4 % (40.0-70.0) 05/08/16 05:48 Seg Neutrophils # 2.0 K/mm3 (1.8-7.7) 05/08/16 05:48 Sodium 138 mmol/L (137-145) 05/09/16 05:42 Potassium 4.7 mmol/L (3.6-5.0) 05/09/16 05:42 Chloride 101.3 mmol/L (98-107) 05/09/16 05:42 Carbon Dioxide 22 mmol/L (22-30) 05/09/16 05:42 Anion Gap 19 mmol/L 05/09/16 05:42 BUN 23 mg/dL (7-17) H 05/09/16 05:42 Creatinine 1.8 mg/dL (0.7-1.2) H 05/09/16 05:42 Estimated GFR 35 ml/min 05/09/16 05:42 BUN/Creatinine Ratio 12.77 % 05/09/16 05:42 Glucose 101 mg/dL (65-100) H 05/09/16 05:42 POC Glucose 162 (70-105) H 05/09/16 11:48 Hemoglobin A1c 6.6 % (4-6) H 05/07/16 09:20 Calcium 8.5 mg/dL (8.4-10.2) 05/09/16 05:42 Total Bilirubin 0.2 mg/dL (0.1-1.2) 05/06/16 16:16 AST 57 units/L (5-40) H 05/06/16 16:16 ALT 38 units/L (7-56) 05/06/16 16:16 Alkaline Phosphatase 167 units/L (35-129) H 05/06/16 16:16 Total Creatine Kinase 826 units/L (30-135) H 05/07/16 18:58 CK-MB (CK-2) 55.0 ng/mL (0.0-4.0) H 05/07/16 18:58 CK-MB (CK-2) Rel Index 6.6 (0-4) H 05/07/16 18:58 Troponin T 0.765 ng/mL (0.00-0.029) H* 05/07/16 18:58 Total Protein 9.4 g/dL (6.3-8.2) H 05/06/16 16:16 Albumin 4.1 g/dL (3.9-5) 05/06/16 16:16 Albumin/Globulin Ratio 0.8 % 05/06/16 16:16 Triglycerides 143 mg/dL (2-149) 05/06/16 16:16 Cholesterol 169 mg/dL (50-199) 05/06/16 16:16 LDL Cholesterol Direct 94 mg/dL (50-130) 05/06/16 16:16 HDL Cholesterol 47 mg/dL (40-59) 05/06/16 16:16 Cholesterol/HDL Ratio 3.59 % 05/06/16 16:16 Lipase 57 units/L (13-60) 05/06/16 16:16 Urine Color Straw (Yellow) 05/06/16 16:16 Urine Turbidity Clear (Clear) 05/06/16 16:16 Urine pH 5.0 (5.0-7.0) 05/06/16 16:16 Ur Specific [place] 1.010 (1.003-1.030) 05/06/16 16:16 Urine Protein 100 mg/dl mg/dL (Negative) 05/06/16 16:16 Urine Glucose (UA) Neg mg/dL (Negative) 05/06/16 16:16 Urine Ketones Neg mg/dL (Negative) 05/06/16 16:16 Urine Blood Mod (Negative) 05/06/16 16:16 Urine Nitrite Neg (Negative) 05/06/16 16:16 Urine Bilirubin Neg (Negative) 05/06/16 16:16 Urine Urobilinogen < 2.0 mg/dL (<2.0) 05/06/16 16:16 Ur Leukocyte Esterase Neg (Negative) 05/06/16 16:16 Urine WBC (Auto) 1.0 /HPF (0.0-6.0) 05/06/16 16:16 Urine RBC (Auto) 9.0 /HPF (0.0-6.0) 05/06/16 16:16 U Epithel Cells (Auto) 3.0 /HPF (0-13.0) 05/06/16 16:16 Urine Mucus Few /HPF 05/06/16 16:16 Urine Yeast (Budding) Few /HPF 05/06/16 16:16
[2016-05-09] MEDS: DILAUDID IV PRN (21:06)
[2016-05-09] MEDS: ZOCOR PO SCH (21:07)
[2016-05-09] MEDS: LEVEMIR SUB-Q SCH (22:51)
[2016-05-10] MEDS: DILAUDID IV PRN (05:25)
[2016-05-10 06:06] LABS: Calcium 8.4 mg/dL (8.4-10.2); Chloride 103.3 mmol/L (98-107); Potassium 4.2 mmol/L (3.6-5.0)
--- NOTE | 2016-05-10 08:06 | Progress Note ---
Assessment and Plan Impression: * Acute kidney injury --Baseline SCr 1.1-1.2 in 2016 * Right hydronephrosis secondary to recent obstruction * Ecoli UTI * HIV * Type II diabetes mellitus Plan: * Renal function is stable today * Continue abx * case management to assist in getting meds, shyla HIV meds * Repeat renal u/s done, still not read * Recommend urology consultation if hydronephrosis persists * AM labs ordered * ok to dc from renal standpoint with outpatient follow up if ultrasound ok Subjective Date of service: 05/10/16 Principal diagnosis: katty Interval history: resting well in bed today Objective - Exam Narrative Exam: General appearance: well-developed, appears stated age EENT: ATNC Respiratory: Present: Clear to Ascultation Cardiology: regular, S1S2 Gastrointestinal: normal, no tenderness, no distended Integumentary: no rash Psychiatric: cooperative - Vital Signs Vital signs: Vital Signs - 12hr 05/10/16 00:13 Temperature 98.6 F Pulse Rate [ 70 Right Radial] Respiratory 18 Rate Blood Pressure 159/77 [Right Arm] O2 Sat by Pulse 99 Oximetry - Lab 05/08/16 05:48 05/10/16 05:25 Most recent lab results Calcium 8.4 mg/dL (8.4-10.2) 05/10/16 05:25
[2016-05-10] MEDS: NEURONTIN PO SCH (08:51)
[2016-05-10] MEDS: NORMODYNE PO SCH ×2 (08:51→14:15)
--- NOTE | 2016-05-10 09:52 | Discharge Summary ---
Providers - Providers Date of Admission: 05/06/16 19:07 Date of discharge: 05/10/16 Attending physician: GABRIEL DEJESUS MD 05/07/16 Consult to Cardiac Rehabilitation [CONS] Routine Reason For Exam: Phase I 05/07/16 13:10 Consult to Physician [CONS] Routine Consulting Provider: CORDELL SHAFFER Reason For Exam: depression, crying Place consult to:: psychiatry Notified:: SCOTT Phone number called:: [phone] Was contact made?: Yes If yes, spoke with:: SCOTT Time called:: 13:33 Comment:: CARLA AGUIRRE NOTIFIED 05/07/16 13:27 Physical Therapy Evaluation and Treat [CONS] Routine Comment: Reason For Exam: issues with stairs and knees 05/07/16 14:16 Consult to Physician [CONS] Routine Consulting Provider: DANILO ENRIQUE Reason For Exam: Right sided abdominal pain, Cholelithiasis Place consult to:: General surgery Notified:: DR. ENRIQUE OFFICE Phone number called:: [phone] Was contact made?: Yes If yes, spoke with:: BRITTANI Time called:: 14:38 Comment:: CARLA AGUIRRE NOTIFIED 05/07/16 14:20 Consult to Physician [CONS] Routine Consulting Provider: KRYS FRIEDMAN Reason For Exam: elevated troponin Place consult to:: cardiology Notified:: GISELE Jenkins Phone number called:: IN HOUSE Was contact made?: Yes If yes, spoke with:: GISELE Jenkisn Time called:: 14:41 Comment:: CARLA AGUIRRE NOTIFIED 05/08/16 06:59 Physical Therapy Evaluation and Treat [CONS] Routine Comment: Reason For Exam: Request walker ,limited leg mobility Mode of Transport?: Wheelchair Weight bearing status?: Partial wt bearing Assistive devices?: No If so list: Cane 05/08/16 12:43 Consult to Physician [CONS] Routine Consulting Provider: HEBER SMITH V Reason For Exam: bilateral knee pain, un able to flex the knee Place consult to:: orthopedics Notified:: office Phone number called:: Was contact made?: Yes If yes, spoke with:: jarocho Time called:: 13:48 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 Risk benefit was explained by Dr Enrique. Acute kidney failure - Advised to increased fluid intake - Patient's creatinine was trending down and advised to have o/p nephrology followup - Nephrology consulted and input appreciated Type 2 diabetes mellitus - Sliding scale insulin - Continue home medications on discharge High troponin level - No chest pain - Cardiology consulted and didn't think it is ACS and recommend conservative mangement Hypertension - Controlled - Continue on home dose of antihypertensives HIV/AIDS - Patient is taking medications - Her last CD4 count was 315 - Continue F/U with ID Right knee pain likely from osteoarthritis - Orthopedics consulted and recommend symptomatic management - Because of her kidney function she is advised to take OTC tylenol Patient was stable at the time of discharge and advised to have follow up with PCP as an o/p. Disposition: DC/TX HOME UNDER HOME HEALTH Time spent for discharge: 31 minutes - Discharge Diagnoses (1) Abdominal pain Status: Acute Qualifiers: Abdominal location: A (2) EDUARDO (acute kidney injury) Status: Acute (3) Cholelithiasis Status: Acute Qualifiers: Cholelithiasis location: C Cholecystitis presence: C Cholangitis presence : C Cholecystitis acuity: C Cholangitis acuity: C Biliary obstruction: B (4) Elevated troponin Status: Acute (5) Hyperkalemia Status: Acute (6) HIV (human immunodeficiency virus infection) Status: Chronic Core Measure Documentation - Palliative Care Palliative Care/ Comfort Measures: Not Applicable - Core Measures Any of the following diagnoses?: none Exam - Physical Exam Narrative exam: Not in cardiopulmonary distress. The patient appeared well nourished and normally developed. Vital signs as documented. Head exam is unremarkable. No scleral icterus . Neck is without jugular venous distension, thyromegaly, or carotid bruits. Lungs are clear to auscultation. Cardiac exam reveals regular rate and Rhythm. First and second heart sounds normal. No murmurs, rubs or gallops. Abdominal exam reveals normal bowel sounds, no masses, no organomegaly and no aortic enlargement. Extremities no swelling of the knee, but stiff bilateral knee. 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 No focal weakness. - Constitutional Vitals: Temp Pulse Resp BP Pulse Ox 98.5 F 70 16 126/70 100 05/10/16 08:52 05/10/16 08:52 05/10/16 08:52 05/10/16 08:52 05/10/16 08:52 Plan Activity: advance as tolerated Weight Bearing Status: Weight Bear as Tolerated Diet: low salt Follow up with: DANILO ENRIQUE MD [Staff Physician] - 14 Days PRIMARY CARE, [Primary Care Provider] - 7 Days RANDY CARROLL MD [Staff Physician] - 7 Days
[2016-05-10] MEDS: ZIAGEN PO SCH (10:35)
[2016-05-10] MEDS: ECOTRIN PO SCH (10:35)
[2016-05-10] MEDS: HEPARIN SUB-Q SCH (10:36)
[2016-05-10] MEDS: EPIVIR PO SCH (10:37)
[2016-05-10] MEDS: NORVASC PO SCH (10:38)
--- NOTE | 2016-05-10 11:06 | Event Note ---
Patient refuses to undergo laparoscopic cholecystectomy. Explained to her the possible risks and complications of of continuing on with symptomatic cholelithiasis. Talked to her about acute cholecystitis, gangrenous cholecystitis, possibility of common duct stones with obstruction, and all acute pancreatitis secondary to gallstones. She decides a prescription will go ahead and continue with our plans for a laparoscopic cholecystectomy tomorrow if not she'll be discharged.
[2016-05-10] MEDS: NOVOLOG SUB-Q SCH (12:44)
[2016-05-10 12:58] VITALS: BP 139/73
--- NOTE | 2016-05-11 07:48 | Consultation ---
REASON FOR CONSULTATION: Knee stiffness. BRIEF HISTORY: The patient is a 55-year-old female who is being admitted to the hospital secondary to multiple medical issues, who presented to the hospital complaining of abdominal pain, nausea, and vomiting. The patient been worked out on these basis and appears to be better. The patient has stiffness in lower extremities, both knees, ambulates with a straight knee bilaterally, and the consultation was carried out in that regard. The patient has a history of being admitted to the hospital in [place], [place] about 6 weeks ago, at which time the patient states that she had both thighs quite swollen and she developed stiffness of the knee. Following that, the patient was discharged, that in a week time, with exercises, her knee motion should come back. PHYSICAL EXAMINATION: The patient today at bedside, alert and oriented female, who appears to be in acute distress, communicates well, appears to be in no acute distress of any type. Examination today demonstrated the patient ambulates with stiff knees, both knees are being held in hyperextension. The patient does have tightening of the quadriceps tendons bilaterally in both knees. The patient has a normal neurological function of the ankle and foot in both sides. There is good motion of the hip bilaterally without any limitations. Flexion and extension motion of the lumbar spine is normal. Examination of knee itself demonstrates hyperextension due to severe tightness of quadriceps tendon without any other abnormalities. X-rays of the patient's knees demonstrate to be basically within normal limits, there appear to be no major abnormalities. IMPRESSION: Quadriceps tendon contracture, unknown etiology. RECOMMENDATION: Physical therapy. The patient may require in the future if it fails, quadriceps type release and lengthening. JOB# [id number] SOLO/NOELLE BANDA
--- NOTE | 2016-05-11 08:12 | Ultrasound Report ---
ULTRASOUND RENAL BILATERAL HISTORY: Hydronephrosis seen on CT, right-sided abdominal pain. TECHNIQUE: transabdominal ultrasound with color Doppler interrogation. FINDINGS: The right kidney measures 11.8 x 4.3 x 5.6cm. Right renal cortex: 1.2cm. The left kidney measures 10.8 x 5.7 x 5.7cm. Left renal cortex: 1.9cm. Both kidneys are normal size, contour and position but demonstrate moderate increased cortical echotexture. These findings suggest acute renal failure or medical renal disease. Mild right hydronephrosis seen on recent CT has resolved. There is no evidence for cystic disease, hypervascular mass, large shadowing calculus or perinephric fluid. The bladder is empty but unremarkable. IMPRESSION: Normal size but echogenic kidneys consistent with medical renal disease or acute renal failure. Right hydronephrosis has resolved since the CT on 05/06/16.
[2016-05-11] MEDS ORDERED: MARCAINE 0.5% INFILTRATI ONE (10:00)
[2016-05-11] MEDS ORDERED: NACL 0.9% 250ML ONE (10:00)
== END 2016-05-10 16:10 | disposition home health service (06) | DRG 444 ==
LOC: ED 15:21 → 3A 19:07
PROVIDERS: ADMIT Internal Medicine; ATTEND Internal Medicine
DX: K80.20 Calculus of gallbladder without cholecystitis without obstruction (principal); N17.0 Acute kidney failure with tubular necrosis; B20 Human immunodeficiency virus [HIV] disease; N39.0 Urinary tract infection, site not specified; N13.30 Unspecified hydronephrosis; E87.5 Hyperkalemia; I10 Essential (primary) hypertension; F32.9 Major depressive disorder, single episode, unspecified; E11.40 Type 2 diabetes mellitus with diabetic neuropathy, unspecified; G62.9 Polyneuropathy, unspecified; F17.200 Nicotine dependence, unspecified, uncomplicated; M17.11 Unilateral primary osteoarthritis, right knee; E78.00 Pure hypercholesterolemia, unspecified; B96.20 Unspecified Escherichia coli [E. coli] as the cause of diseases classified elsewhere; I25.10 Atherosclerotic heart disease of native coronary artery without angina pectoris; M62.48 Contracture of muscle, other site; Z90.710 Acquired absence of both cervix and uterus; Z98.891 History of uterine scar from previous surgery; Z82.49 Family history of ischemic heart disease and other diseases of the circulatory system; Z88.8 Allergy status to other drugs, medicaments and biological substances; Z86.73 Personal history of transient ischemic attack (TIA), and cerebral infarction without residual deficits
CPT/HCPCS: 36415; 74176; 76770; 80048; 80053; 80061; 81001; 82550; 82553; 82962; 83036; 83690; 84132; 84484; 85025; 93005; 93010; 94640; 96361; 96374; 96375; 96376; 99406; G8978-GP; G8979-GP; G8980-GP; J1170; J1644; J1815; J1818; J1885; J1940; J2270; J2405; J7030; J7050

== ENCOUNTER 2017-09-08 12:19 | Emergency (ER) | payer MEDICARE ==
--- NOTE | 2017-09-08 13:51 | Emergency Department Report ---
ED Chest Pain HPI - General Chief Complaint: Chest Pain Stated Complaint: CHEST PAIN Time Seen by Provider: 09/08/17 13:31 Source: patient, EMS Mode of arrival: Stretcher Limitations: No Limitations - History of Present Illness Initial Comments: Patient is 57-year-old female end-stage renal disease on hemodialysis. Patient brought from the dialysis center before his thoughts are dialysis physician this morning for substernal chest pain that tightness has been going on for 1 month now. Patient stated that she's been having this problem and she told the dialysis center that she was never bather to come to the ER for that. Patient denied any cough, fever, nausea or vomiting. MD Complaint: chest pain -: month(s) Onset: during rest, during exertion Pain Location: substernal, left chest, right chest Pain Radiation: none Severity: moderate Quality: tightness Consistency: intermittent - Related Data Home Medications Medication Instructions Recorded Confirmed Last Taken Dolutegravir Sodium [Tivicay] 50 mg PO DAILY 05/07/16 12/30/16 12/29/16 lamiVUDine [Epivir] 150 mg PO QDAY 05/07/16 12/30/16 12/29/16 Acetaminophen/Codeine [Tylenol 1 tab PO Q6H PRN 12/30/16 12/30/16 12/29/16 /Codeine # 3 tab] Amlodipine Besylate [Norvasc] 5 mg PO DAILY 12/30/16 12/30/16 12/29/16 Carvedilol [Coreg] 25 mg PO BIDWM 12/30/16 12/30/16 12/29/16 Cyclobenzaprine HCl [Flexeril 5 MG 5 mg PO TID 12/30/16 12/30/16 12/29/16 TAB] Darunavir/Cobicistat [Prezcobix 1 each PO DAILY 12/30/16 12/30/16 12/29/16 800 mg-150 mg Tablet] Folic Acid [Folvite] 1 mg PO QDAY 12/30/16 12/30/16 12/29/16 Furosemide [Lasix] 20 mg PO BID 12/30/16 12/30/16 12/29/16 Gabapentin [Neurontin] 300 mg PO QID 12/30/16 12/30/16 12/29/16 Sertraline HCl [Zoloft] 100 mg PO DAILY 12/30/16 12/30/16 12/29/16 Previous Rx's Medication Instructions Recorded Last Taken Type Insulin Detemir [Levemir Flextouch] 23 unit SQ DAILY #30 day 12/31/16 12/29/16 Rx Pravastatin Sodium [Pravastatin] 40 mg PO QHS #30 day 12/31/16 12/29/16 Rx Allergies Allergy/AdvReac Type Severity Reaction Status Date / Time lisinopril Allergy Severe Angioedema Verified 09/08/17 13:17 Heart Score - HEART Score History: Slightly suspicious EKG: Non-specific Age: 45-65 Risk factors: 1-2 risk factors Troponin: < normal limit HEART Score: 3 - Critical Actions Critical Actions: 0-3 pts:0.9-1.7%risk of adverse cardiac event.Candidate for discharge ED Review of Systems ROS: Stated complaint: CHEST PAIN Other details as noted in HPI Comment: All other systems reviewed and negative Constitutional: denies: chills, fever ENT: denies: ear pain, throat pain, dental pain Respiratory: shortness of breath. denies: cough, orthopnea, SOB with exertion, SOB at rest Cardiovascular: chest pain. denies: palpitations, dyspnea on exertion Gastrointestinal: denies: abdominal pain, nausea, diarrhea, constipation, hematemesis, hematochezia Musculoskeletal: denies: back pain Neurological: denies: headache ED Past Medical Hx - Past Medical History Previous Medical History?: Yes Hx Hypertension: Yes Hx CVA: Yes (2014) Hx Diabetes: Yes Hx Renal Disease: Yes (07/2017 ESRD M-W-F) Hx Psychiatric Treatment: Yes (DEPRESSION) Hx HIV: Yes Additional medical history: NEUROPATHY - Surgical History Past Surgical History?: Yes Additional Surgical History: C SECTION, Left Arm AV fistula, right chest permcath. hysterectomy. hernia repair - Social History Smoking Status: Current Every Day Smoker Substance Use Type: Alcohol, Marijuana - Medications Home Medications: Home Medications Medication Instructions Recorded Confirmed Last Taken Type Dolutegravir Sodium [Tivicay] 50 mg PO DAILY 05/07/16 12/30/16 12/29/16 History lamiVUDine [Epivir] 150 mg PO QDAY 05/07/16 12/30/16 12/29/16 History Acetaminophen/Codeine [Tylenol 1 tab PO Q6H PRN 12/30/16 12/30/1617 History /Codeine # 3 tab] Amlodipine Besylate [Norvasc] 5 mg PO DAILY 12/30/16 12/30/16 12/29/16 History Carvedilol [Coreg] 25 mg PO BIDWM 12/30/16 12/30/16 12/29/16 History Cyclobenzaprine HCl [Flexeril 5 MG 5 mg PO TID 12/30/16 12/30/16 12/29/16 History TAB] Darunavir/Cobicistat [Prezcobix 1 each PO DAILY 12/30/16 12/30/16 12/29/16 History 800 mg-150 mg Tablet] Folic Acid [Folvite] 1 mg PO QDAY 12/30/16 12/30/16 12/29/16 History Furosemide [Lasix] 20 mg PO BID 12/30/16 12/30/16 12/29/16 History Gabapentin [Neurontin] 300 mg PO QID 12/30/16 12/30/16 12/29/16 History Sertraline HCl [Zoloft] 100 mg PO DAILY 12/30/16 12/30/16 12/29/16 History Insulin Detemir [Levemir Flextouch] 23 unit SQ DAILY #30 day 12/31/16 12/30/16 12/29/16 Rx Pravastatin Sodium [Pravastatin] 40 mg PO QHS #30 day 12/31/16 12/30/16 Rx ED Physical Exam - General Limitations: No Limitations General appearance: alert, in no apparent distress - Head Head exam: Present: atraumatic, normocephalic, normal inspection - Eye Eye exam: Present: normal appearance - ENT ENT exam: Present: normal exam, normal orophraynx, mucous membranes moist - Neck Neck exam: Present: normal inspection, full ROM. Absent: tenderness, meningismus - Respiratory Respiratory exam: Present: normal lung sounds bilaterally - Cardiovascular Cardiovascular Exam: Present: regular rate, normal rhythm, normal heart sounds - GI/Abdominal GI/Abdominal exam: Present: soft, normal bowel sounds. Absent: distended, tenderness, guarding, rebound, rigid, organomegaly, mass, bruit, pulsatile mass - Extremities Exam Extremities exam: Present: normal inspection, full ROM, normal capillary refill - Back Exam Back exam: Present: normal inspection, full ROM. Absent: CVA tenderness (L) - Neurological Exam Neurological exam: Present: alert, oriented X3, CN II-XII intact, normal gait, reflexes normal - Skin Skin exam: Present: warm, intact ED Course Vital Signs 09/08/17 12:30 Temperature 98.1 F Pulse Rate 69 Respiratory 14 Rate Blood Pressure 150/77 O2 Sat by Pulse 99 Oximetry - Reevaluation(s) Reevaluation #1: 09/08/17 14:35 Patient is alert, oriented 3, able to make sound decision. Patient decided to leave the ER AGAINST MEDICAL ADVICE. Patient did not give any good reason for leaving. I advised patient to return to the ER if her symptoms are not improving. ED Medical Decision Making - Lab Data Result diagrams: 09/08/17 13:49 09/08/17 13:49 Critical care attestation.: If time is entered above; I have spent that time in minutes in the direct care of this critically ill patient, excluding procedure time. ED Disposition Clinical Impression: Chest pain Disposition: DC-07 LEFT AGAINST MED ADVICE Is pt being admited?: No Condition: Stable Instructions: Chest Pain (ED) Referrals: PRIMARY CARE, [Primary Care Provider] - 3-5 Days
--- NOTE | 2017-09-08 14:06 | XRay Report ---
CHEST 2 VIEWS INDICATION: Chest tightness. COMPARISON: 12/30/2016 FINDINGS: PA and lateral chest radiographs demonstrate stable cardiomediastinal silhouette and clear lungs. New right sided dual lumen central catheter tip in the mid right atrium. EKG leads. Intact bones. CONCLUSION: No acute chest process with interval right-sided central catheter placement, as described. Thank you for the opportunity to participate in this patient's care.
[2017-09-08 14:08] LABS: Basophils # (Auto) 0.1 K/mm3 (0.0-0.1); Basophils % (Auto) 1.3 % (0.0-1.8); Eosinophils # (Auto) 0.2 K/mm3 (0.0-0.4); Eosinophils % (Auto) 2.2 % (0.0-4.3); Hemoglobin 11.1 gm/dl (10.1-14.3); Lymphocytes # (Auto) 2.5 K/mm3 (1.2-5.4); Lymphocytes % (Auto) 34.3 % (13.4-35.0); Mean Corpuscular HGB Conc 34 % (30-34); Mean Corpuscular Hemoglobin 32 pg (28-32); Mean Corpuscular Volume 95 fl (79-97); Monocytes # (Auto) 0.5 K/mm3 (0.0-0.8); Monocytes % (Auto) 7.1 % (0.0-7.3); Platelet Count 246 K/mm3 (140-440); Red Blood Count 3.48 M/mm3 (3.65-5.03); Red Cell Distribution Width 15.5 % (13.2-15.2)
[2017-09-08 14:45] VITALS: BP 158/96
[2017-09-08 14:48] LABS: Chol/HDL Ratio 3.91 %
== END 2017-09-08 14:44 | disposition left against medical advice (07) ==
LOC: ED 12:19
DX: R07.89 Other chest pain (principal); I12.0 Hypertensive chronic kidney disease with stage 5 chronic kidney disease or end stage renal disease; E11.22 Type 2 diabetes mellitus with diabetic chronic kidney disease; N18.6 End stage renal disease; E11.40 Type 2 diabetes mellitus with diabetic neuropathy, unspecified; F17.200 Nicotine dependence, unspecified, uncomplicated; F12.10 Cannabis abuse, uncomplicated; Z99.2 Dependence on renal dialysis; Z79.4 Long term (current) use of insulin; Z86.73 Personal history of transient ischemic attack (TIA), and cerebral infarction without residual deficits; Z90.710 Acquired absence of both cervix and uterus; Z88.8 Allergy status to other drugs, medicaments and biological substances
CPT/HCPCS: 36415; 71046; 80048; 80061; 84484; 85025; 93005; 93010; 99285

== ENCOUNTER 2019-03-12 07:06 | Observation (INO) | payer MEDICARE ==
[2019-03-12 07:59] LABS: Hematocrit 32.7 % (30.3-42.9); Hemoglobin 10.5 gm/dl (10.1-14.3); Mean Corpuscular HGB Conc 32 % (30-34); Mean Corpuscular Volume 102 fl (79-97); Platelet Count 208 K/mm3 (140-440); Red Cell Distribution Width 16.5 % (13.2-15.2)
[2019-03-12 08:25] LABS: Albumin 4.8 g/dL (3.9-5); Calcium 8.2 mg/dL (8.4-10.2)
[2019-03-12] MEDS ORDERED: INSULIN REGULAR, HUMAN 100 UNITS/1 ML IV ONE (09:33)
[2019-03-12] MEDS ORDERED: DEXTROSE 50% IN WATER (25GM) 50 ML SYRINGE IV ONE (09:33)
[2019-03-12] MEDS ORDERED: ALBUTEROL 2.5 MG/3 ML NEBU IH ONE (09:33)
--- NOTE | 2019-03-12 09:39 | Emergency Department Report ---
ED General Adult HPI - General Chief complaint: Recheck/Abnormal Lab/Rx Stated complaint: MEDICAL CLEARANCE FOR DIALYSIS Time Seen by Provider: 03/12/19 09:25 Source: patient Mode of arrival: Ambulatory Limitations: No Limitations - History of Present Illness Initial comments: Patient is 58 years old female with history of end-stage renal disease on hem odialysis, hypertension, diabetes and HIV. Patient presented to the ER complaining of shortness of breath and also stated that she missed dialysis for approximately 20 days so far. Patient stated that last dialysis was just before . Patient stated that she does not have the money for transportation to dialysis Center. Patient denied any chest pain, fever or chills. Patient found to have a potassium of 6.4. Anti-hyperkalemic measurements immediately started. Patient given calcium chloride, insulin, dextrose, albuterol and field enumerator immediately consulted for emergency dialysis. - Related Data Home Medications Medication Instructions Recorded Confirmed Last Taken Dolutegravir Sodium [Tivicay] 50 mg PO DAILY 05/07/16 12/30/16 12/29/16 lamiVUDine [Epivir] 150 mg PO QDAY 05/07/16 12/30/16 12/29/16 Acetaminophen/Codeine [Tylenol 1 tab PO Q6H PRN 12/30/16 12/30/16 12/29/16 /Codeine # 3 tab] Amlodipine Besylate [Norvasc] 5 mg PO DAILY 12/30/16 12/30/16 12/29/16 Carvedilol [Coreg] 25 mg PO BIDWM 12/30/16 12/30/16 12/29/16 Cyclobenzaprine HCl [Flexeril 5 MG 5 mg PO TID 12/30/16 12/30/16 12/29/16 TAB] Darunavir/Cobicistat [Prezcobix 1 each PO DAILY 12/30/16 12/30/16 12/29/16 800 mg-150 mg Tablet] Folic Acid [Folvite] 1 mg PO QDAY 12/30/16 12/30/16 12/29/16 Furosemide [Lasix] 20 mg PO BID 12/30/16 12/30/16 12/29/16 Gabapentin 300 mg PO QID 12/30/16 12/30/16 12/29/16 Sertraline HCl [Zoloft] 100 mg PO DAILY 12/30/16 12/30/16 12/29/16 Previous Rx's Medication Instructions Recorded Last Taken Type Insulin Detemir (Nf) [Levemir 23 unit SQ DAILY #30 day 12/31/16 12/29/16 Rx Flextouch (Nf)] Pravastatin Sodium [Pravastatin] 40 mg PO QHS #30 day 12/31/16 12/29/16 Rx Allergies Allergy/AdvReac Type Severity Reaction Status Date / Time lisinopril Allergy Severe Angioedema Verified 09/08/17 13:17 ED Review of Systems ROS: Stated complaint: MEDICAL CLEARANCE FOR DIALYSIS Other details as noted in HPI Comment: All other systems reviewed and negative Constitutional: denies: chills, fever Respiratory: shortness of breath. denies: cough, SOB with exertion, wheezing Cardiovascular: denies: chest pain, palpitations Gastrointestinal: denies: abdominal pain, nausea, vomiting Neurological: denies: headache, weakness, numbness, paresthesias, confusion, abnormal gait ED Past Medical Hx - Past Medical History Previous Medical History?: Yes Hx Hypertension: Yes Hx CVA: Yes (2014) Hx Diabetes: Yes Hx Renal Disease: Yes (07/2017 ESRD M-W-F) Hx Psychiatric Treatment: Yes (DEPRESSION) Hx HIV: Yes Additional medical history: NEUROPATHY - Surgical History Past Surgical History?: Yes Additional Surgical History: C SECTION, Left Arm AV fistula, right chest permcath. hysterectomy. hernia repair - Social History Smoking Status: Never Smoker Substance Use Type: None - Medications Home Medications: Home Medications Medication Instructions Recorded Confirmed Last Taken Type Dolutegravir Sodium [Tivicay] 50 mg PO DAILY 05/07/16 12/30/16 12/29/16 History lamiVUDine [Epivir] 150 mg PO QDAY 05/07/16 12/30/16 12/29/16 History Acetaminophen/Codeine [Tylenol 1 tab PO Q6H PRN 12/30/16 12/30/16 12/29/16 History /Codeine # 3 tab] Amlodipine Besylate [Norvasc] 5 mg PO DAILY 12/30/16 12/30/16 12/29/16 History Carvedilol [Coreg] 25 mg PO BIDWM 12/30/16 12/30/16 12/29/16 History Cyclobenzaprine HCl [Flexeril 5 MG 5 mg PO TID 12/30/16 12/30/16 12/29/16 History TAB] Darunavir/Cobicistat [Prezcobix 1 each PO DAILY 12/30/16 12/30/16 12/29/16 History 800 mg-150 mg Tablet] Folic Acid [Folvite] 1 mg PO QDAY 12/30/16 12/30/16 12/29/16 History Furosemide [Lasix] 20 mg PO BID 12/30/16 12/30/16 12/29/16 History Gabapentin 300 mg PO QID 12/30/16 12/30/16 12/29/16 History Sertraline HCl [Zoloft] 100 mg PO DAILY 12/30/16 12/30/16 12/29/16 History Insulin Detemir (Nf) [Levemir 23 unit SQ DAILY #30 day 12/31/16 12/30/16 12/29/16 Rx Flextouch (Nf)] Pravastatin Sodium [Pravastatin] 40 mg PO QHS #30 day 12/31/16 12/30/16 12/29/16 Rx ED Physical Exam - General Limitations: No Limitations General appearance: alert, in no apparent distress - Head Head exam: Present: atraumatic, normocephalic, normal inspection - Eye Eye exam: Present: normal appearance - ENT ENT exam: Present: normal exam, normal orophraynx, mucous membranes moist - Neck Neck exam: Present: normal inspection, full ROM. Absent: tenderness, meningismus, lymphadenopathy, thyromegaly - Respiratory Respiratory exam: Present: normal lung sounds bilaterally - Cardiovascular Cardiovascular Exam: Present: regular rate, normal rhythm, normal heart sounds - GI/Abdominal GI/Abdominal exam: Present: soft, normal bowel sounds. Absent: distended, tenderness, guarding, rebound, rigid, organomegaly, mass, bruit, pulsatile mass, hernia - Extremities Exam Extremities exam: Present: normal inspection, full ROM, normal capillary refill. Absent: pedal edema, calf tenderness - Back Exam Back exam: Present: normal inspection, full ROM. Absent: CVA tenderness (R), CVA tenderness (L) - Neurological Exam Neurological exam: Present: alert, oriented X3, CN II-XII intact, normal gait, reflexes normal. Absent: motor sensory deficit - Psychiatric Psychiatric exam: Present: normal mood - Skin Skin exam: Present: warm, intact, normal color ED Course Vital Signs 03/12/19 07:17 Temperature 98.3 F Pulse Rate 70 Respiratory 16 Rate Blood Pressure 178/73 O2 Sat by Pulse 100 Oximetry ED Medical Decision Making - Lab Data Result diagrams: 03/12/19 07:24 03/12/19 07:24 - EKG Data -: EKG Interpreted by Me EKG shows normal: sinus rhythm Rate: normal - EKG Data Interpretation: no acute changes - Medical Decision Making Patient is 58 years old female with history of end-stage renal disease on hemodialysis, hypertension, diabetes and HIV. Patient presented to the ER complaining of shortness of breath and also stated that she missed dialysis for approximately 20 days so far. Patient stated that last dialysis was just before . Patient stated that she does not have the money for transportation to dialysis Center. Patient denied any chest pain, fever or chills. Patient found to have a potassium of 6.4. Anti-hyperkalemic measurements immediately started. Patient given calcium chloride, insulin, dextrose, albuterol and field enumerator immediately consulted for emergency dialysis. I discussed the patient with Dr. Ness, he advised that he will put order for emergency dialysis. I discussed the patient is Dr. Logan was advised to admit the patient to Dr. Pearce. Critical Care Time: Yes Critical care time in (mins) excluding proc time.: 30 Critical care attestation.: If time is entered above; I have spent that time in minutes in the direct care of this critically ill patient, excluding procedure time. ED Disposition Clinical Impression: Acute hyperkalemia, End-stage renal disease needing dialysis Disposition: OP ADMIT IP TO THIS HOSP Is pt being admited?: Yes Condition: Stable
[2019-03-12] MEDS ORDERED: CALCIUM CHLORIDE 1,000 MG in SODIUM CHLORIDE 0.9% 100 ML IV ONE (10:00)
--- NOTE | 2019-03-12 10:45 | Consultation ---
History of Present Illness - History of Present Illness Thank you for the consultation patient was evaluated today. Source of information; from patient as well as current records History of presenting illness; Patient is a 58-year-old left pigmented female who is here with missing dialysis treatment for nearly 2-1/2 weeks, due to right issues and cost involved patient has not been for dialysis ever since She came to the ER with complaints of fatigue was also noted to be acidotic and hyperkalemic She is currently being followed by Dr. Mcadams at [facility] [place] She has been feeling more fatigued especially with walking and exertion no chest pain no fever or chills Appetite has been poor Past medical history significant for End-stage renal disease Hypertension Anemia and end-stage renal disease Secondary hyperparathyroidism Home medication present medication: Reviewed Current allergies: Lisinopril Home medication present medication: Reviewed Social history, family history: Reviewed Review of system positive for missing dialysis treatment, unable to get the ride cost issues All other review of systems negative Labs and x-rays: Were reviewed from the current chart Physical examination General: No acute distress patient does appear to have uremic order, HEENT: Oral mucosa moist no pharyngeal erythema no pallor or icterus no uremic order Neck: Supple no evidence of any thyromegaly trachea midline no JVD Chest: Clear to auscultation no crackles are also wheezes anteriorly Heart: Regular rate and rhythm S1-S2 heard no S3-S4 Abdomen: Soft nontender no renal bruit no CVA tenderness no suprapubic fullness no organomegaly Extremity: Minimal edema dry skin no peripheral cyanosis pulses palpable Neurological: Alert awake follows command grossly nonfocal examination Back: Nontender thoracolumbar spine Musculoskeletal: No joint effusion noted Skin: No petechial rash/noted Assessment and plan End-stage renal disease: Patient has missed dialysis ever since her due to right issues and hence will be arranged for hemodialysis treatment which will be ordered stat Anemia and end-stage renal disease: To monitor and follow Moderate hyperkalemia will be treated medically patient will need to start he modialysis which has been ordered Secondary hyperparathyroidism and bone Todd disorder to monitor and follow She is currently followed by Dr. Mcadams insole department worker and search planner needs to follow up on her case Dialysis access: Currently seems to be working well no acute issues Patient was adequately counseled and educated in regard to all dialysis related issues Diet plan and current labs are also discussed We'll continue to follow and make recommendation from renal standpoint Nature and severity of renal-related issues were discussed with patient, all questions were answered and simple Swedish advised to make an appointment with her occupational rehabilitation aide upon discharge If you have any questions please feel free to contact me at [phone] Thank you for the consultation. Medications and Allergies Allergies Allergy/AdvReac Type Severity Reaction Status Date / Time lisinopril Allergy Severe Angioedema Verified 09/08/17 13:17 Home Medications Medication Instructions Recorded Confirmed Last Taken Type lamiVUDine [Epivir] 150 mg PO QDAY 05/07/16 03/12/19 12/29/16 History Amlodipine Besylate [Norvasc] 5 mg PO BID 12/30/16 03/12/19 12/29/16 History Carvedilol [Coreg] 25 mg PO BIDWM 12/30/16 03/12/19 12/29/16 History Gabapentin 600 mg PO TID 12/30/16 03/12/19 12/29/16 History Levemir Flextouch 5 units SUB-Q HS 03/12/19 03/12/19 Unknown History Tenofovir Disoproxil Fumarate 300 mg PO 1XW 03/12/19 03/12/19 Unknown History Exam - Vital Signs Vital signs: Vital Signs Temp Pulse Resp BP Pulse Ox 98.3 F 70 16 178/73 100 03/12/19 07:17 03/12/19 07:17 03/12/19 07:17 03/12/19 07:17 03/12/19 07:17 Results - Lab Results 03/12/19 07:24 03/12/19 20:24 Most recent lab results Calcium 8.2 mg/dL (8.4-10.2) L 03/12/19 07:24
[2019-03-12] MEDS ORDERED: SODIUM CHLORIDE 0.9% 100 ML IV PRN (11:02)
[2019-03-12 11:33] LABS: Hepatitis B Surface Antigen Non-Reactive (Negative); Hepatitis C Virus Antibody Non-Reactive (NonReactive)
[2019-03-12 11:34] LABS: Total Cells Counted 100
[2019-03-12 11:36] LABS: Platelet Estimate Consistent w Auto; Target Cells Rare; Tear Drop Cells Few
[2019-03-12] MEDS ORDERED: DEXTROSE 50% IN WATER (25GM) 50 ML SYRINGE IV PRN ×2 (13:49→14:08)
[2019-03-12] MEDS ORDERED: ONDANSETRON 4 MG/2 ML INJ IV PRN (13:49)
[2019-03-12] MEDS ORDERED: ACETAMINOPHEN 325 MG TAB PO PRN (13:49)
--- NOTE | 2019-03-12 13:49 | History and Physical Report ---
History of Present Illness Date of examination: 03/12/19 Date of admission: 03/12/19 09:57 Chief complaint: Missed hemodialysis History of present illness: Patient is 58 years old female with history of end-stage renal disease on hemodialysis, hypertension, diabetes and HIV who presented to the ER complaining that she missed dialysis for approximately 20 days so far. Patient stated that last dialysis was February 20, 2019. Patient stated that she does not have the money for transportation to dialysis Center. Patient denied any chest pain, fever or chills. Patient found to have a potassium of 6.4. Patient denies any symptomatology such as edema, shortness of breath or volume overload. Patient simply states that she knows that she needs to get her dialysis done because she has missed several days. In the emergency department, patient was given calcium chloride, insulin, dextrose, albuterol and mathematics teacher immediately consulted for emergency dialysis. Hospitalist service asked for admission. Past History Past Medical History: diabetes, ESRD, HIV/AIDS, hypertension, other (Diabetic neuropathy) Past Surgical History: Other (C SECTION, Left Arm AV fistula, right chest permcath. hysterectomy. hernia repair) Social history: no significant social history Family history: no significant family history Medications and Allergies Allergies Allergy/AdvReac Type Severity Reaction Status Date / Time lisinopril Allergy Severe Angioedema Verified 09/08/17 13:17 Home Medications Medication Instructions Recorded Confirmed Last Taken Type Dolutegravir Sodium [Tivicay] 50 mg PO DAILY 05/07/16 12/30/16 12/29/16 History lamiVUDine [Epivir] 150 mg PO QDAY 05/07/16 12/30/16 12/29/16 History Acetaminophen/Codeine [Tylenol 1 tab PO Q6H PRN 12/30/16 12/30/16 12/29/16 History /Codeine # 3 tab] Amlodipine Besylate [Norvasc] 5 mg PO DAILY 12/30/16 12/30/16 12/29/16 History Carvedilol [Coreg] 25 mg PO BIDWM 12/30/16 12/30/16 12/29/16 History Cyclobenzaprine HCl [Flexeril 5 MG 5 mg PO TID 12/30/16 12/30/16 12/29/16 History TAB] Darunavir/Cobicistat [Prezcobix 1 each PO DAILY 12/30/16 12/30/16 12/29/16 History 800 mg-150 mg Tablet] Folic Acid [Folvite] 1 mg PO QDAY 12/30/16 12/30/16 12/29/16 History Furosemide [Lasix] 20 mg PO BID 12/30/16 12/30/16 12/29/16 History Gabapentin 300 mg PO QID 12/30/16 12/30/16 12/29/16 History Sertraline HCl [Zoloft] 100 mg PO DAILY 12/30/16 12/30/16 12/29/16 History Insulin Detemir (Nf) [Levemir 23 unit SQ DAILY #30 day 12/31/16 12/30/16 12/29/16 Rx Flextouch (Nf)] Pravastatin Sodium [Pravastatin] 40 mg PO QHS #30 day 12/31/16 12/30/16 12/29/16 Rx Active Meds: Active Medications Sodium Chloride (Nacl 0.9%) 100 mls @ 999 mls/hr IV ALESSANDRO PRN PRN Reason: Hypotension Review of Systems All systems: negative Exam - Constitutional Vitals: Temp Pulse Resp BP Pulse Ox 98.3 F 70 16 178/73 98 03/12/19 07:17 03/12/19 07:17 03/12/19 10:57 03/12/19 07:17 03/12/19 10:57 General appearance: Present: no acute distress, well-nourished - EENT Eyes: Present: PERRL ENT: hearing intact, clear oral mucosa - Neck Neck: Present: supple, normal ROM - Respiratory Respiratory effort: normal Respiratory: bilateral: CTA - Cardiovascular Heart Sounds: Present: S1 & S2. Absent: rub, click - Extremities Extremities: pulses symmetrical, No edema Peripheral Pulses: within normal limits - Abdominal General gastrointestinal: Present: soft, non-tender, non-distended, normal bowel sounds Female genitourinary: Present: normal - Integumentary Integumentary: Present: clear, warm, dry - Musculoskeletal Musculoskeletal: gait normal, strength equal bilaterally - Psychiatric Psychiatric: appropriate mood/affect, intact judgment & insight - Neurologic Neurologic: CNII-XII intact, moves all extremities Results - Labs CBC & Chem 7: 03/12/19 07:24 03/12/19 07:24 Labs: Laboratory Last Values WBC 6.3 K/mm3 (4.5-11.0) 03/12/19 07:24 RBC 3.20 M/mm3 (3.65-5.03) L 03/12/19 07:24 Hgb 10.5 gm/dl (10.1-14.3) 03/12/19 07:24 Hct 32.7 % (30.3-42.9) 03/12/19 07:24 MCV 102 fl (79-97) H 03/12/19 07:24 MCH 33 pg (28-32) H 03/12/19 07:24 MCHC 32 % (30-34) 03/12/19 07:24 RDW 16.5 % (13.2-15.2) H 03/12/19 07:24 Plt Count 208 K/mm3 (140-440) 03/12/19 07:24 Eos % (Auto) Band Builder 03/12/19 07:24 Add Manual Diff Complete 03/12/19 07:24 Total Counted 100 03/12/19 07:24 Seg Neutrophils % Band Builder 03/12/19 07:24 Seg Neuts % (Manual) 31.0 % (40.0-70.0) L 03/12/19 07:24 Band Neutrophils % 0 % 03/12/19 07:24 Lymphocytes % (Manual) 41.0 % (13.4-35.0) H 03/12/19 07:24 Reactive Lymphs % (Man) 3.0 % 03/12/19 07:24 Monocytes % (Manual) 8.0 % (0.0-7.3) H 03/12/19 07:24 Eosinophils % (Manual) 15.0 % (0.0-4.3) H 03/12/19 07:24 Basophils % (Manual) 2.0 % (0.0-1.8) H 03/12/19 07:24 Metamyelocytes % 0 % 03/12/19 07:24 Myelocytes % 0 % 03/12/19 07:24 Promyelocytes % 0 % 03/12/19 07:24 Blast Cells % 0 % 03/12/19 07:24 Nucleated RBC % Not Reportable 03/12/19 07:24 Seg Neutrophils # Man 2.0 K/mm3 (1.8-7.7) 03/12/19 07:24 Band Neutrophils # 0.0 K/mm3 03/12/19 07:24 Lymphocytes # (Manual) 2.6 K/mm3 (1.2-5.4) 03/12/19 07:24 Abs React Lymphs (Man) 0.2 K/mm3 03/12/19 07:24 Monocytes # (Manual) 0.5 K/mm3 (0.0-0.8) 03/12/19 07:24 Eosinophils # (Manual) 0.9 K/mm3 (0.0-0.4) H 03/12/19 07:24 Basophils # (Manual) 0.1 K/mm3 (0.0-0.1) 03/12/19 07:24 Metamyelocytes # 0.0 K/mm3 03/12/19 07:24 Myelocytes # 0.0 K/mm3 03/12/19 07:24 Promyelocytes # 0.0 K/mm3 03/12/19 07:24 Blast Cells # 0.0 K/mm3 03/12/19 07:24 WBC Morphology Not Reportable 03/12/19 07:24 Hypersegmented Neuts Not Reportable 03/12/19 07:24 Hyposegmented Neuts Not Reportable 03/12/19 07:24 Hypogranular Neuts Not Reportable 03/12/19 07:24 Smudge Cells Not Reportable 03/12/19 07:24 Toxic Granulation Not Reportable 03/12/19 07:24 Toxic Vacuolation Not Reportable 03/12/19 07:24 Dohle Bodies Not Reportable 03/12/19 07:24 Pelger-Huet Anomaly Not Reportable 03/12/19 07:24 Darrell Rods Not Reportable 03/12/19 07:24 Platelet Estimate Consistent w auto 03/12/19 07:24 Clumped Platelets Not Reportable 03/12/19 07:24 Plt Clumps, EDTA Not Reportable 03/12/19 07:24 Large Platelets Not Reportable 03/12/19 07:24 Giant Platelets Not Reportable 03/12/19 07:24 Platelet Satelliting Not Reportable 03/12/19 07:24 Plt Morphology Comment Not Reportable 03/12/19 07:24 RBC Morphology Not Reportable 03/12/19 07:24 Dimorphic RBCs Not Reportable 03/12/19 07:24 Polychromasia Not Reportable 03/12/19 07:24 Hypochromasia Not Reportable 03/12/19 07:24 Poikilocytosis Not Reportable 03/12/19 07:24 Anisocytosis Not Reportable 03/12/19 07:24 Microcytosis Not Reportable 03/12/19 07:24 Macrocytosis Not Reportable 03/12/19 07:24 Spherocytes Not Reportable 03/12/19 07:24 Pappenheimer Bodies Not Reportable 03/12/19 07:24 Sickle Cells Not Reportable 03/12/19 07:24 Target Cells Rare 03/12/19 07:24 Tear Drop Cells Few 03/12/19 07:24 Ovalocytes Not Reportable 03/12/19 07:24 Helmet Cells Not Reportable 03/12/19 07:24 [place] Bodies Not Reportable 03/12/19 07:24 [place] Rings Not Reportable 03/12/19 07:24 Cheri Cells Not Reportable 03/12/19 07:24 Bite Cells Not Reportable 03/12/19 07:24 Crenated Cell Not Reportable 03/12/19 07:24 Elliptocytes Not Reportable 03/12/19 07:24 Acanthocytes (Spur) Not Reportable 03/12/19 07:24 Rouleaux Not Reportable 03/12/19 07:24 Hemoglobin C Crystals Not Reportable 03/12/19 07:24 Schistocytes Not Reportable 03/12/19 07:24 Malaria parasites Not Reportable 03/12/19 07:24 Pedor Bodies Not Reportable 03/12/19 07:24 Hem Pathologist Commnt No 03/12/19 07:24 Sodium 140 mmol/L (137-145) 03/12/19 07:24 Potassium 6.4 mmol/L (3.6-5.0) H* 03/12/19 07:24 Chloride 107.1 mmol/L (98-107) H 03/12/19 07:24 Carbon Dioxide 13 mmol/L (22-30) L 03/12/19 07:24 Anion Gap 26 mmol/L 03/12/19 07:24 BUN 97 mg/dL (7-17) H 03/12/19 07:24 Creatinine 12.2 mg/dL (0.7-1.2) H 03/12/19 07:24 Estimated GFR 4 ml/min 03/12/19 07:24 BUN/Creatinine Ratio 8 % 03/12/19 07:24 Glucose 101 mg/dL (65-100) H 03/12/19 07:24 Calcium 8.2 mg/dL (8.4-10.2) L 03/12/19 07:24 Total Bilirubin 0.20 mg/dL (0.1-1.2) 03/12/19 07:24 AST 8 units/L (5-40) 03/12/19 07:24 ALT 7 units/L (7-56) 03/12/19 07:24 Alkaline Phosphatase 110 units/L (35-129) 03/12/19 07:24 Total Protein 7.5 g/dL (6.3-8.2) 03/12/19 07:24 Albumin 4.8 g/dL (3.9-5) 03/12/19 07:24 Albumin/Globulin Ratio 1.8 % 03/12/19 07:24 Hepatitis A IgM Ab Non-reactive (NonReactive) 03/12/19 07:24 Hep Bs Antigen Non-reactive (Negative) 03/12/19 07:24 Hep B Core IgM Ab Non-reactive (NonReactive) 03/12/19 07:24 Hepatitis C Antibody Non-reactive (NonReactive) 03/12/19 07:24 Assessment and Plan Assessment and plan: ESRD. Patient with missed hemodialysis. Nephrology consulted. We will proceed with emergent hemodialysis. Hyperkalemia. Hemodialysis. Follow-up BMP. Hypertension. Resume home antihypertensive medications. Diabetes mellitus type 2. Continue Accu-Cheks and sliding scale insulin. HIV/AIDS. Consider ID consultation.
[2019-03-12] MEDS ORDERED: NON-FORMULARY EACH (Cyclobenzaprine Hcl [Flexeril 5 Mg Tab] 5 MG) PO SCH (14:00)
[2019-03-12] MEDS: CYCLOBENZAPRINE 10 MG TAB PO SCH (16:59)
[2019-03-12] MEDS: GABAPENTIN 300 MG CAP PO SCH ×2 (17:00→17:58)
[2019-03-12] MEDS: carvediloL 25 MG TAB PO SCH (17:00)
[2019-03-12] MEDS: INSULIN LISPRO 100 UNIT/ML SUB-Q SCH (18:57)
--- NOTE | 2019-03-12 21:25 | Event Note ---
I called for follow-up and found out the patient has not received hemodialysis treatment nobody has lymphoma dialysis nurse, I discussed with the nurse informed the dialysis nurse right away for patient to be dialyzed I have also informed the dialysis nurse protection chief industrial plant to common dialyzed the patient This is a quality issue, this will be addressed tomorrow with the charge nurse as well as administration
[2019-03-12] MEDS ORDERED: PRAVASTATIN SODIUM 40 MG PO SCH (22:00)
[2019-03-13] MEDS ORDERED: SODIUM CHLORIDE*PRIMING MACHINE ONLY FOR DIALYSIS MC ONE (01:48)
[2019-03-13] MEDS: PRAVASTATIN 40 MG TAB PO SCH ×2 (03:09→21:54)
[2019-03-13] MEDS: GABAPENTIN 300 MG CAP PO SCH ×5 (03:09→21:54)
[2019-03-13] MEDS: CYCLOBENZAPRINE 10 MG TAB PO SCH ×4 (03:09→21:54)
[2019-03-13] MEDS: INSULIN LISPRO 100 UNIT/ML SUB-Q SCH ×5 (03:11→23:25)
[2019-03-13 09:54] LABS: Hematocrit 29.3 % (30.3-42.9); Hemoglobin 9.9 gm/dl (10.1-14.3); Mean Corpuscular HGB Conc 34 % (30-34); Mean Corpuscular Volume 97 fl (79-97); Platelet Count 209 K/mm3 (140-440); Red Blood Count 3.02 M/mm3 (3.65-5.03); Red Cell Distribution Width 15.3 % (13.2-15.2)
[2019-03-13] MEDS ORDERED: COBICISTAT PO SCH (10:00)
[2019-03-13] MEDS ORDERED: DOLUTEGRAVIR 50 MG TAB PO SCH ×3 (10:00)
[2019-03-13] MEDS ORDERED: DARUNAVIR PO SCH (10:00)
[2019-03-13 10:07] LABS: Calcium 8.1 mg/dL (8.4-10.2)
[2019-03-13] MEDS: DOLUTEGRAVIR 50 MG TAB PO SCH (10:14)
[2019-03-13] MEDS: DARUNAVIR 800 MG TAB PO SCH (10:15)
[2019-03-13] MEDS: amLODIPine 5 MG TAB PO SCH (10:15)
[2019-03-13] MEDS: ENOXAPARIN 30 MG/0.3 ML INJ SUB-Q SCH (10:15)
[2019-03-13] MEDS: lamiVUDine 50 MG/5 ML ORAL LIQD PO SCH (10:15)
[2019-03-13] MEDS: SERTRALINE 50 MG TAB PO SCH (10:16)
[2019-03-13] MEDS: carvediloL 25 MG TAB PO SCH ×2 (10:19→18:49)
--- NOTE | 2019-03-13 10:56 | Progress Note ---
Assessment and Plan Assessment and plan: ESRD. Hemodialysis has been resumed per nephrology recommendations. Hyperkalemia. Resolved. Follow-up BMP. Hypertension. Resume home antihypertensive medications. Diabetes mellitus type 2. Continue Accu-Cheks and sliding scale insulin. HIV/AIDS. Consider ID consultation. History Interval history: No new issues overnight. Patient received hemodialysis last night. Hospitalist Physical - Constitutional Vitals: Temp Pulse Resp BP Pulse Ox 98.0 F 70 18 171/73 97 03/13/19 01:20 03/13/19 10:15 03/13/19 01:20 03/13/19 10:15 03/12/19 13:51 General appearance: Present: no acute distress, well-nourished - EENT Eyes: Present: PERRL, EOM intact ENT: hearing intact, clear oral mucosa, dentition normal - Neck Neck: Present: supple, normal ROM - Respiratory Respiratory effort: normal Respiratory: bilateral: CTA - Cardiovascular Rhythm: regular Heart Sounds: Present: S1 & S2. Absent: gallop, rub - Extremities Extremities: no ischemia, No edema, Full ROM - Abdominal General gastrointestinal: soft, non-tender, non-distended, normal bowel sounds - Integumentary Integumentary: Present: clear, warm, dry - Neurologic Neurologic: CNII-XII intact, moves all extremities Results - Labs CBC & Chem 7: 03/13/19 08:30 03/13/19 08:30 Labs: Laboratory Last Values WBC 5.1 K/mm3 (4.5-11.0) 03/13/19 08:30 RBC 3.02 M/mm3 (3.65-5.03) L 03/13/19 08:30 Hgb 9.9 gm/dl (10.1-14.3) L 03/13/19 08:30 Hct 29.3 % (30.3-42.9) L 03/13/19 08:30 MCV 97 fl (79-97) 03/13/19 08:30 MCH 33 pg (28-32) H 03/13/19 08:30 MCHC 34 % (30-34) 03/13/19 08:30 RDW 15.3 % (13.2-15.2) H 03/13/19 08:30 Plt Count 209 K/mm3 (140-440) 03/13/19 08:30 Eos % (Auto) Sql Server Architect 03/13/19 08:30 Add Manual Diff Complete 03/12/19 07:24 Total Counted 100 03/12/19 07:24 Seg Neutrophils % Sql [employer] Architect 03/13/19 08:30 Seg Neuts % (Manual) 31.0 % (40.0-70.0) L 03/12/19 07:24 Band Neutrophils % 0 % 03/12/19 07:24 Lymphocytes % (Manual) 41.0 % (13.4-35.0) H 03/12/19 07:24 Reactive Lymphs % (Man) 3.0 % 03/12/19 07:24 Monocytes % (Manual) 8.0 % (0.0-7.3) H 03/12/19 07:24 Eosinophils % (Manual) 15.0 % (0.0-4.3) H 03/12/19 07:24 Basophils % (Manual) 2.0 % (0.0-1.8) H 03/12/19 07:24 Metamyelocytes % 0 % 03/12/19 07:24 Myelocytes % 0 % 03/12/19 07:24 Promyelocytes % 0 % 03/12/19 07:24 Blast Cells % 0 % 03/12/19 07:24 Nucleated RBC % Not Reportable 03/12/19 07:24 Seg Neutrophils # Man 2.0 K/mm3 (1.8-7.7) 03/12/19 07:24 Band Neutrophils # 0.0 K/mm3 03/12/19 07:24 Lymphocytes # (Manual) 2.6 K/mm3 (1.2-5.4) 03/12/19 07:24 Abs React Lymphs (Man) 0.2 K/mm3 03/12/19 07:24 Monocytes # (Manual) 0.5 K/mm3 (0.0-0.8) 03/12/19 07:24 Eosinophils # (Manual) 0.9 K/mm3 (0.0-0.4) H 03/12/19 07:24 Basophils # (Manual) 0.1 K/mm3 (0.0-0.1) 03/12/19 07:24 Metamyelocytes # 0.0 K/mm3 03/12/19 07:24 Myelocytes # 0.0 K/mm3 03/12/19 07:24 Promyelocytes # 0.0 K/mm3 03/12/19 07:24 Blast Cells # 0.0 K/mm3 03/12/19 07:24 WBC Morphology Not Reportable 03/12/19 07:24 Hypersegmented Neuts Not Reportable 03/12/19 07:24 Hyposegmented Neuts Not Reportable 03/12/19 07:24 Hypogranular Neuts Not Reportable 03/12/19 07:24 Smudge Cells Not Reportable 03/12/19 07:24 Toxic Granulation Not Reportable 03/12/19 07:24 Toxic Vacuolation Not Reportable 03/12/19 07:24 Dohle Bodies Not Reportable 03/12/19 07:24 Pelger-Huet Anomaly Not Reportable 03/12/19 07:24 Darrell Rods Not Reportable 03/12/19 07:24 Platelet Estimate Consistent w auto 03/12/19 07:24 Clumped Platelets Not Reportable 03/12/19 07:24 Plt Clumps, EDTA Not Reportable 03/12/19 07:24 Large Platelets Not Reportable 03/12/19 07:24 Giant Platelets Not Reportable 03/12/19 07:24 Platelet Satelliting Not Reportable 03/12/19 07:24 Plt Morphology Comment Not Reportable 03/12/19 07:24 RBC Morphology Not Reportable 03/12/19 07:24 Dimorphic RBCs Not Reportable 03/12/19 07:24 Polychromasia Not Reportable 03/12/19 07:24 Hypochromasia Not Reportable 03/12/19 07:24 Poikilocytosis Not Reportable 03/12/19 07:24 Anisocytosis Not Reportable 03/12/19 07:24 Microcytosis Not Reportable 03/12/19 07:24 Macrocytosis Not Reportable 03/12/19 07:24 Spherocytes Not Reportable 03/12/19 07:24 Pappenheimer Bodies Not Reportable 03/12/19 07:24 Sickle Cells Not Reportable 03/12/19 07:24 Target Cells Rare 03/12/19 07:24 Tear Drop Cells Few 03/12/19 07:24 Ovalocytes Not Reportable 03/12/19 07:24 Helmet Cells Not Reportable 03/12/19 07:24 [place] Bodies Not Reportable 03/12/19 07:24 [place] Rings Not Reportable 03/12/19 07:24 Cheri Cells Not Reportable 03/12/19 07:24 Bite Cells Not Reportable 03/12/19 07:24 Crenated Cell Not Reportable 03/12/19 07:24 Elliptocytes Not Reportable 03/12/19 07:24 Acanthocytes (Spur) Not Reportable 03/12/19 07:24 Rouleaux Not Reportable 03/12/19 07:24 Hemoglobin C Crystals Not Reportable 03/12/19 07:24 Schistocytes Not Reportable 03/12/19 07:24 Malaria parasites Not Reportable 03/12/19 07:24 [place] Bodies Not Reportable 03/12/19 07:24 Hem Pathologist Commnt No 03/12/19 07:24 Sodium 141 mmol/L (137-145) 03/13/19 08:30 Potassium 4.4 mmol/L (3.6-5.0) D 03/13/19 08:30 Chloride 102.2 mmol/L (98-107) 03/13/19 08:30 Carbon Dioxide 21 mmol/L (22-30) L D 03/13/19 08:30 Anion Gap 22 mmol/L 03/13/19 08:30 BUN 39 mg/dL (7-17) H 03/13/19 08:30 Creatinine 7.3 mg/dL (0.7-1.2) H 03/13/19 08:30 Estimated GFR 7 ml/min 03/13/19 08:30 BUN/Creatinine Ratio 5 % 03/13/19 08:30 Glucose 90 mg/dL (65-100) 03/13/19 08:30 POC Glucose 138 (70-105) H 03/12/19 21:38 Calcium 8.1 mg/dL (8.4-10.2) L 03/13/19 08:30 Total Bilirubin 0.20 mg/dL (0.1-1.2) 03/12/19 07:24 AST 8 units/L (5-40) 03/12/19 07:24 ALT 7 units/L (7-56) 03/12/19 07:24 Alkaline Phosphatase 110 units/L (35-129) 03/12/19 07:24 Total Protein 7.5 g/dL (6.3-8.2) 03/12/19 07:24 Albumin 4.8 g/dL (3.9-5) 03/12/19 07:24 Albumin/Globulin Ratio 1.8 % 03/12/19 07:24 Hepatitis A IgM Ab Non-reactive (NonReactive) 03/12/19 07:24 Hep Bs Antigen Non-reactive (Negative) 03/12/19 07:24 Hep B Core IgM Ab Non-reactive (NonReactive) 03/12/19 07:24 Hepatitis C Antibody Non-reactive (NonReactive) 03/12/19 07:24 Active Medications - Current Medications Current Medications: Generic Name Dose Route Start Last Admin Trade Name Freq PRN Reason Stop Dose Admin Acetaminophen 650 mg 03/12/19 13:49 Tylenol PO Q4H PRN Pain MILD(1-3)/Fever >100.5/SHIRLEY Amlodipine Besylate 5 mg 03/13/19 10:00 03/13/19 10:15 Amlodipine PO 5 mg DAILY VENKAT Administration Carvedilol 25 mg 03/12/19 17:00 03/13/19 10:19 Coreg PO 25 mg BIDDIAB VENKAT Administration Cyclobenzaprine HCl 5 mg 03/12/19 14:00 03/13/19 10:18 Flexeril PO 5 mg TID VENKAT Administration Darunavir 800 mg 03/13/19 10:00 03/13/19 10:15 Prezista PO 800 mg QDAY VENKAT Administration Dextrose 50 ml 03/12/19 13:49 D50w (25gm) Syringe IV Q30MIN PRN Hypoglycemia Protocol Dextrose 50 ml 03/12/19 14:08 D50w (25gm) Syringe IV Q30MIN PRN Hypoglycemia Protocol Enoxaparin Sodium 30 mg 03/13/19 10:00 03/13/19 10:15 Enoxaparin SUB-Q 30 mg QDAY VENKAT Administration Folic Acid 1 mg 03/13/19 10:00 Folvite PO QDAY VENKAT Gabapentin 300 mg 03/12/19 14:00 03/13/19 10:15 Gabapentin PO 300 mg QID VENKAT Administration Sodium Chloride 100 mls @ 999 mls/hr 03/12/19 11:02 Nacl 0.9% IV ALESSANDRO PRN Hypotension Insulin Human Lispro 0 unit 03/12/19 16:30 03/13/19 10:13 Humalog SUB-Q Not Given ACHS VENKAT Protocol Lamivudine 50 mg 03/13/19 10:00 03/13/19 10:15 Epivir PO 50 mg DAILY VENKAT Administration Ondansetron HCl 4 mg 03/12/19 13:49 Zofran IV Q8H PRN Nausea And Vomiting Pravastatin Sodium 40 mg 03/12/19 22:00 03/13/19 03:09 Pravachol PO 40 mg QHS VENKAT Administration Sertraline HCl 100 mg 03/13/19 10:00 03/13/19 10:16 Zoloft PO 100 mg DAILY VENKAT Administration Sodium Chloride 10 ml 03/12/19 22:00 03/13/19 10:16 Sodium Chloride Flush Syringe 10 Ml IV 10 ml BID VENKAT Administration Sodium Chloride 10 ml 03/12/19 13:49 Sodium Chloride Flush Syringe 10 Ml IV PRN PRN LINE FLUSH
[2019-03-13] MEDS: COBICISTAT 150 MG PO SCH (11:30)
[2019-03-13 11:54] LABS: Anisocytosis Few; Band Neutrophils # (Manual) 0.1 K/mm3; Hypochromasia Few; Platelet Estimate Consistent w Auto; Total Cells Counted 100
[2019-03-13] MEDS: FOLIC ACID 1 MG TAB PO SCH (14:57)
--- NOTE | 2019-03-13 21:55 | Progress Note ---
Assessment and Plan # End-stage renal disease: dialyzed on 03/12/19 after missing HD since due to transportation issues. No indication for HD today, will plan to continue HD // or prn labs/volume - daily labs - renally dose meds - renal diet - currently follows outpatient with Dr. Mcadams - appreciate case management # HTN: UF as tolerated with HD; BP remains above goal # Secondary Hyperparathyroidism: continue binders as indicated, will monitor # HIV: per primary # DM: per primary Thank you for this consult. We'll continue to follow and make recommendations from renal standpoint. Subjective Date of service: 03/13/19 Interval history: No acute events noted. Sleeping but arousable. Objective - Exam Narrative Exam: General: No acute distress, sleeping HEENT: Oral mucosa moist Neck: Supple Chest: Clear to auscultation, non-labored breathing Heart: Regular rate and rhythm Abdomen: Soft nontender Extremity: no edema Neurological: Alert, awake, no focal deficits Back: Nontender Musculoskeletal: No joint effusion noted Skin: No petechial rash/noted - Vital Signs Vital signs: Vital Signs - 12hr 03/13/19 03/13/19 03/13/19 10:13 10:15 11:27 Temperature 98.6 F Pulse Rate 70 69 Respiratory 18 Rate Blood Pressure 171/73 171/73 155/84 O2 Sat by Pulse 98 Oximetry 03/13/19 16:52 Temperature 97.7 F Pulse Rate 64 Respiratory 18 Rate Blood Pressure 148/76 O2 Sat by Pulse 98 Oximetry - Lab 03/13/19 08:30 03/13/19 08:30 Most recent lab results Calcium 8.1 mg/dL (8.4-10.2) L 03/13/19 08:30 Medications & Allergies - Medications Allergies/Adverse Reactions: Allergies lisinopril Allergy (Severe, Verified 09/08/17 13:17) Angioedema Home Medications: Home Medications Medication Instructions Recorded Confirmed Last Taken Type lamiVUDine [Epivir] 150 mg PO QDAY 05/07/16 03/12/19 12/29/16 History Amlodipine Besylate [Norvasc] 5 mg PO BID 12/30/16 03/12/19 12/29/16 History Carvedilol [Coreg] 25 mg PO BIDWM 12/30/16 03/12/19 12/29/16 History Gabapentin 600 mg PO TID 12/30/16 03/12/19 12/29/16 History Levemir Flextouch 5 units SUB-Q HS 03/12/19 03/12/19 Unknown History Tenofovir Disoproxil Fumarate 300 mg PO 1XW 03/12/19 03/12/19 Unknown History Active Medications: Generic Name Dose Route Start Last Admin Trade Name Freq PRN Reason Stop Dose Admin Acetaminophen 650 mg 03/12/19 13:49 Tylenol PO Q4H PRN Pain MILD(1-3)/Fever >100.5/SHIRLEY Amlodipine Besylate 5 mg 03/13/19 10:00 03/13/19 10:15 Amlodipine PO 5 mg DAILY VENKAT Administration Carvedilol 25 mg 03/12/19 17:00 03/13/19 18:49 Coreg PO 25 mg BIDDIAB VENKAT Administration Cyclobenzaprine HCl 5 mg 03/12/19 14:00 03/13/19 14:56 Flexeril PO 5 mg TID VENKAT Administration Darunavir 800 mg 03/13/19 10:00 03/13/19 10:15 Prezista PO 800 mg QDAY VENKAT Administration Dextrose 50 ml 03/12/19 14:08 D50w (25gm) Syringe IV Q30MIN PRN Hypoglycemia Protocol Enoxaparin Sodium 30 mg 03/13/19 10:00 03/13/19 10:15 Enoxaparin SUB-Q 30 mg QDAY VENKAT Administration Folic Acid 1 mg 03/13/19 10:00 03/13/19 14:57 Folvite PO 1 mg QDAY VENKAT Administration Gabapentin 300 mg 03/12/19 14:00 03/13/19 18:49 Gabapentin PO 300 mg QID VENKAT Administration Sodium Chloride 100 mls @ 999 mls/hr 03/12/19 11:02 Nacl 0.9% IV ALESSANDRO PRN Hypotension Insulin Human Lispro 0 unit 03/12/19 16:30 03/13/19 18:00 Humalog SUB-Q Not Given ACHS VENKAT Protocol Lamivudine 50 mg 03/13/19 10:00 03/13/19 10:15 Epivir PO 50 mg DAILY VENKAT Administration Ondansetron HCl 4 mg 03/12/19 13:49 Zofran IV Q8H PRN Nausea And Vomiting Pravastatin Sodium 40 mg 03/12/19 22:00 03/13/19 03:09 Pravachol PO 40 mg QHS VENKAT Administration Sertraline HCl 100 mg 03/13/19 10:00 03/13/19 10:16 Zoloft PO 100 mg DAILY VENKAT Administration Sodium Chloride 10 ml 03/12/19 22:00 03/13/19 10:16 Sodium Chloride Flush Syringe 10 Ml IV 10 ml BID VENKAT Administration Sodium Chloride 10 ml 03/12/19 13:49 Sodium Chloride Flush Syringe 10 Ml IV PRN PRN LINE FLUSH
[2019-03-14] MEDS: INSULIN LISPRO 100 UNIT/ML SUB-Q SCH ×3 (09:00→17:13)
[2019-03-14] MEDS: DARUNAVIR 800 MG TAB PO SCH (09:43)
[2019-03-14] MEDS: CYCLOBENZAPRINE 10 MG TAB PO SCH ×2 (09:44→13:18)
[2019-03-14] MEDS: carvediloL 25 MG TAB PO SCH ×2 (09:45→17:14)
[2019-03-14] MEDS: amLODIPine 5 MG TAB PO SCH (09:45)
[2019-03-14] MEDS: FOLIC ACID 1 MG TAB PO SCH (09:45)
[2019-03-14] MEDS: GABAPENTIN 300 MG CAP PO SCH ×2 (09:45→13:18)
[2019-03-14] MEDS: SERTRALINE 50 MG TAB PO SCH (09:46)
[2019-03-14] MEDS: lamiVUDine 50 MG/5 ML ORAL LIQD PO SCH (09:47)
[2019-03-14] MEDS: DOLUTEGRAVIR 50 MG TAB PO SCH (09:47)
[2019-03-14] MEDS: ENOXAPARIN 30 MG/0.3 ML INJ SUB-Q SCH (09:47)
[2019-03-14] MEDS: COBICISTAT 150 MG PO SCH (09:51)
--- NOTE | 2019-03-14 13:39 | Progress Note ---
Assessment and Plan # End-stage renal disease: dialyzed on 03/12/19 after missing HD since due to transportation issues. Seen on HD today, will plan to continue HD // or prn labs/volume while inpatient - daily labs - renally dose meds - renal diet - currently follows outpatient with Dr. Mcadams - appreciate case management # HTN: UF as tolerated with HD; BP at goal today # Anemia: hemoglobin 9.9, close to goal, no ESAs needed # Secondary Hyperparathyroidism: continue binders as indicated, will monitor # HIV: per primary # DM: per primary Thank you for this consult. We'll continue to follow and make recommendations from renal standpoint. Subjective Date of service: 03/14/19 Interval history: No acute events noted. Seen on HD, denies any acute issues including cramping/dizziness. Objective - Exam Narrative Exam: General: No acute distress, sleeping HEENT: Oral mucosa moist Neck: Supple Chest: Clear to auscultation, non-labored breathing Heart: Regular rate and rhythm Abdomen: Soft nontender Extremity: no edema Neurological: Alert, awake, no focal deficits Back: Nontender Musculoskeletal: No joint effusion noted Skin: No petechial rash/noted - Vital Signs Vital signs: Vital Signs - 12hr 03/14/19 03/14/19 05:54 09:45 Temperature 98.4 F Pulse Rate 66 69 Respiratory 18 Rate Blood Pressure 130/81 131/79 O2 Sat by Pulse 100 Oximetry Seen on HD: Qb 350ml/min via AVF; UF 1.5L - Lab 03/13/19 08:30 03/13/19 08:30 Most recent lab results Calcium 8.1 mg/dL (8.4-10.2) L 03/13/19 08:30 Medications & Allergies - Medications Allergies/Adverse Reactions: Allergies lisinopril Allergy (Severe, Verified 09/08/17 13:17) Angioedema Home Medications: Home Medications Medication Instructions Recorded Confirmed Last Taken Type lamiVUDine [Epivir] 150 mg PO QDAY 05/07/16 03/12/19 12/29/16 History Amlodipine Besylate [Norvasc] 5 mg PO BID 12/30/16 03/12/19 12/29/16 History Carvedilol [Coreg] 25 mg PO BIDWM 12/30/16 03/12/19 12/29/16 History Gabapentin 600 mg PO TID 12/30/16 03/12/19 12/29/16 History Levemir Flextouch 5 units SUB-Q HS 03/12/19 03/12/19 Unknown History Tenofovir Disoproxil Fumarate 300 mg PO 1XW 03/12/19 03/12/19 Unknown History Active Medications: Generic Name Dose Route Start Last Admin Trade Name Freq PRN Reason Stop Dose Admin Acetaminophen 650 mg 03/12/19 13:49 Tylenol PO Q4H PRN Pain MILD(1-3)/Fever >100.5/SHIRLEY Amlodipine Besylate 5 mg 03/13/19 10:00 03/14/19 09:45 Amlodipine PO 5 mg DAILY VENKAT Administration Carvedilol 25 mg 03/12/19 17:00 03/14/19 09:45 Coreg PO 25 mg BIDDIAB [facility] Administration Cyclobenzaprine HCl 5 mg 03/12/19 14:00 03/14/19 13:18 Flexeril PO Not Given TID [facility] Darunavir 800 mg 03/13/19 10:00 03/14/19 09:43 Prezista PO 800 mg QDAY [facility] Administration Dextrose 50 ml 03/12/19 14:08 D50w (25gm) Syringe IV Q30MIN PRN Hypoglycemia Protocol Enoxaparin Sodium 30 mg 03/13/19 10:00 03/14/19 09:47 Enoxaparin SUB-Q 30 mg QDAY [facility] Administration Folic Acid 1 mg 03/13/19 10:00 03/14/19 09:45 Folvite PO 1 mg QDAY [facility] Administration Gabapentin 300 mg 03/12/19 14:00 03/14/19 13:18 Gabapentin PO Not Given QID [facility] Sodium Chloride 100 mls @ 999 mls/hr 03/12/19 11:02 Nacl 0.9% IV ALESSANDRO PRN Hypotension Insulin Human Lispro 0 unit 03/12/19 16:30 03/14/19 13:17 Humalog SUB-Q Not Given ACHS [facility] Protocol Lamivudine 50 mg 03/13/19 10:00 03/14/19 09:47 Epivir PO 50 mg DAILY [facility] Administration Ondansetron HCl 4 mg 03/12/19 13:49 Zofran IV Q8H PRN Nausea And Vomiting Pravastatin Sodium 40 mg 03/12/19 22:00 03/13/19 21:54 Pravachol PO 40 mg QHS VENKAT Administration Sertraline HCl 100 mg 03/13/19 10:00 03/14/19 09:46 Zoloft PO 100 mg DAILY VENKAT Administration Sodium Chloride 10 ml 03/12/19 22:00 03/14/19 09:47 Sodium Chloride Flush Syringe 10 Ml IV 10 ml BID VENKAT Administration Sodium Chloride 10 ml 03/12/19 13:49 Sodium Chloride Flush Syringe 10 Ml IV PRN PRN LINE FLUSH
--- NOTE | 2019-03-14 13:55 | Discharge Summary ---
Providers - Providers Date of Admission: 03/12/19 09:57 Date of discharge: 03/14/19 Attending physician: KRYS STUBBS 03/12/19 09:53 Consult to Physician [CONS] Stat Comment: DR MIRANDA QUAN W/DR DC @[id number] Consulting Provider: ANALISA DC Physician Instructions: Reason For Exam: ESRD ON HD , HYPERKALEMIA Hospitalization Condition: Stable Hospital course: Patient is 58 years old female with history of end-stage renal disease on hemodialysis, hypertension, diabetes and HIV who presented to the ER complaining that she missed dialysis for approximately 20 days so far. Patient stated that last dialysis was February 20, 2019. Patient stated that she does not have the money for transportation to dialysis Center. Patient denied any chest pain, fever or chills. Patient found to have a potassium of 6.4. In the emergency department, patient was given calcium chloride, insulin, dextrose, albuterol and hair spring cutter immediately consulted for emergency dialysis. She was admitted. case Management was consulted to help with transportation issues. Postdialysis she felt better, Potassium was normal, and was discharged home ESRD. Hemodialysis has been resumed per nephrology recommendations. Hyperkalemia. Resolved. Follow-up BMP. Hypertension. Resumed home antihypertensive medications. Diabetes mellitus type 2. Continue Accu-Cheks and sliding scale insulin. HIV/AIDS. Total time spent on discharge, 32 mins Disposition: - TO HOME OR SELFCARE - Discharge Diagnoses (1) Acute hyperkalemia Status: Acute (2) End-stage renal disease needing dialysis Status: Acute (3) HIV (human immunodeficiency virus infection) Status: Chronic (4) HTN (hypertension), benign Status: Chronic Core Measure Documentation - Palliative Care Palliative Care/ Comfort Measures: Not Applicable - Core Measures Any of the following diagnoses?: none Exam - Constitutional Vitals: Temp Pulse Resp BP Pulse Ox 98.4 F 59 L 18 128/64 100 03/14/19 12:20 03/14/19 13:30 03/14/19 12:20 03/14/19 13:30 03/14/19 05:54 Plan Activity: no restrictions Diet: low fat, low cholesterol, low salt, renal Plan of Treatment: 1.Follow up with PCP in 1 week. 2.Continue hemodialysis as scheduled Follow up with: ILANA CM [Other] - 7 Days
[2019-03-14 17:12] VITALS: BP 107/83
[2019-03-14] MEDS ORDERED: SODIUM CHLORIDE*PRIMING MACHINE ONLY FOR DIALYSIS MC ONE (20:29)
== END 2019-03-14 17:50 | disposition home or self-care (01) ==
LOC: ED 07:06 → 3A 09:57
PROVIDERS: ADMIT Hospitalist; ATTEND Internal Medicine
DX: I12.0 Hypertensive chronic kidney disease with stage 5 chronic kidney disease or end stage renal disease (principal); N18.6 End stage renal disease; E87.5 Hyperkalemia; E11.22 Type 2 diabetes mellitus with diabetic chronic kidney disease; Z99.2 Dependence on renal dialysis; Z79.4 Long term (current) use of insulin; Z79.899 Other long term (current) drug therapy
CPT/HCPCS: 36415; 80048; 80053; 80074; 82962; 84132; 85007; 85025; 93005; 93010; 94644; 96372; 96374; 96375; 99291; A9270; G0378; J1650; J7030; J1815

== ENCOUNTER 2020-10-03 22:19 | Inpatient (IN) | payer MEDICARE ==
[2020-10-03 04:46] LABS: Basophils % (Auto) 0.7 % (0.0-1.8); Eosinophils % (Auto) 0.2 % (0.0-4.3); Hematocrit 23.7 % (30.3-42.9); Hemoglobin 8.1 gm/dl (10.1-14.3); Lymphocytes # (Auto) 1.7 K/mm3 (1.2-5.4); Lymphocytes % (Auto) 28.5 % (13.4-35.0); Mean Corpuscular HGB Conc 34 % (30-34); Mean Corpuscular Volume 100 fl (79-97); Monocytes # (Auto) 0.6 K/mm3 (0.0-0.8); Monocytes % (Auto) 10.4 % (0.0-7.3); Platelet Count 171 K/mm3 (140-440); Red Blood Count 2.36 M/mm3 (3.65-5.03); Red Cell Distribution Width 15.9 % (13.2-15.2)
[2020-10-03 05:07] LABS: Albumin 4.6 g/dL (3.9-5)
--- NOTE | 2020-10-03 10:01 | XRay Report ---
CHEST 2 VIEWS INDICATION / CLINICAL INFORMATION: Shortness of breath. COMPARISON: 07/13/2019 FINDINGS: SUPPORT DEVICES: None. HEART / MEDIASTINUM: No significant abnormality. LUNGS / PLEURA: No significant pulmonary or pleural abnormality. No pneumothorax. ADDITIONAL FINDINGS: No significant additional findings. IMPRESSION: 1. No acute findings. Signer Name: David Coffey MD Signed: 10/03/2020 9:57 AM Workstation Name: [id number]
--- NOTE | 2020-10-03 22:44 | Emergency Department Report ---
ED Abdominal Pain HPI - General Chief Complaint: Abdominal Pain Stated Complaint: EMESIS/DIARRHEA PUI?: No Source: patient, EMS Mode of arrival: Wheelchair Limitations: No Limitations - History of Present Illness Initial Comments: Evaluation time 10/04/2019, 2224 Patient is a 60-year-old female who presents emergency room with complaints of generalized abdominal pain, epigastric pain, coffee-ground emesis and melena. Patient states her symptoms started 2 days ago. Patient dates her symptoms worsen. Patient states she had this 1 year ago. Patient states she is compliant with her medication. Patient is compliant with dialysis. Patient states the pain is a 10 out of 10. Patient dates the pain is better with rest and worse with movement and vomiting. Patient denies bright red blood per rectum. Patient denies chest pain. Patient denies shortness of breath. Patient denies fever and chills. Patient complains of diarrhea. Patient denies recent travel. Patient denies recent international travel. Patient denies exposure to the novel coronavirus. Patient denies sick contacts. Patient denies fever and chills. Patient denies cough. Patient denies loss of smell. Patient denies coming in contact with anybody with symptoms of the novel coronavirus. MD Complaint: abdominal pain -: Sudden, days(s) Location: diffuse, epigastric Radiation: none Migration to: no migration Severity: severe Severity scale (0 -10): 10 Quality: stabbing Consistency: constant Improves With: rest Worsens With: vomiting, movement Associated Symptoms: nausea, vomiting, diarrhea, hematemesis, melena. denies: fever, chills, constipation, dysuria, hematochezia, hematuria, anorexia, syncope - Related Data Home Medications Medication Instructions Recorded Confirmed Last Taken Amlodipine Besylate [Norvasc] 5 mg PO BID 12/30/16 07/11/19 04/26/19 21:00 Carvedilol [Coreg] 25 mg PO BIDWM 12/30/16 07/11/19 04/27/19 08:30 Previous Rx's Medication Instructions Recorded Last Taken Type Folic Acid [Folvite] 1 mg PO QDAY #90 tablet 04/10/19 Unknown Rx Nicotine [Habitrol] 7 mg TD QDAY #30 patch 04/10/19 Unknown Rx Tenofovir [Viread] 300 mg PO QDAY #90 tablet 04/10/19 04/27/19 08:00 Rx lamiVUDine [Lamivudine] 150 mg PO DAILY #90 tablet 04/10/19 04/27/19 08:00 Rx Gabapentin 600 mg PO TID 30 Days #180 cap 04/30/19 Unknown Rx Pantoprazole [Protonix TAB] 40 mg PO BID #60 tablet 04/30/19 Unknown Rx Albuterol Mdi (or & Nicu Only) 2 puff IH QID PRN #8.5 gram 07/15/19 Unknown Rx [ProAir HFA Inhaler] Allergies Allergy/AdvReac Type Severity Reaction Status Date / Time lisinopril Allergy Severe Angioedema Verified 10/04/20 00:33 ED Review of Systems ROS: Stated complaint: EMESIS/DIARRHEA Other details as noted in HPI Constitutional: denies: chills, fever Eyes: denies: eye pain, eye discharge, vision change ENT: denies: ear pain, throat pain Respiratory: denies: cough, shortness of breath, wheezing Cardiovascular: denies: chest pain, palpitations Endocrine: no symptoms reported Gastrointestinal: abdominal pain, nausea, vomiting, diarrhea, hematemesis, melena Genitourinary: denies: urgency, dysuria, discharge Musculoskeletal: denies: back pain, joint swelling, arthralgia Skin: denies: rash, lesions Neurological: denies: headache, weakness, paresthesias Psychiatric: denies: anxiety, depression Hematological/Lymphatic: denies: easy bleeding, easy bruising ED Past Medical Hx - Past Medical History Previous Medical History?: Yes Hx Hypertension: Yes (Denies cardiac symptoms) Hx CVA: Yes (2014, no deficits) Hx Heart Attack/AMI: No Hx Congestive Heart Failure: No Hx Diabetes: Yes Hx Deep Vein Thrombosis: No Hx Pulmonary Embolism: No Hx Liver Disease: No Hx Renal Disease: Yes (07/2017 ESRD M-W-F) Hx Sickle Cell Disease: No Hx Arthritis: No (both knee swelling) Hx Seizures: No Hx Kidney Stones: No Hx Psychiatric Treatment: Yes (DEPRESSION) Hx Asthma: No Hx COPD: No Hx Tuberculosis: No Hx Dementia: No Hx HIV: Yes Additional medical history: NEUROPATHY - Surgical History Past Surgical History?: Yes Hx Coronary Stent: No Hx Open Heart Surgery: No Hx Pacemaker: No Hx Internal Defibrillator: No Hx Cholecystectomy: No Hx Appendectomy: No Hx Breast Surgery: No Additional Surgical History: C SECTION, Left Arm AV fistula, right chest permcath. hysterectomy - Family History Family history: no significant - Social History Smoking Status: Current Every Day Smoker Substance Use Type: None - Medications Home Medications: Home Medications Medication Instructions Recorded Confirmed Last Taken Type Amlodipine Besylate [Norvasc] 5 mg PO BID 12/30/16 07/11/19 04/26/19 21:00 History Carvedilol [Coreg] 25 mg PO BIDWM 12/30/16 07/11/19 04/27/19 08:30 History Folic Acid [Folvite] 1 mg PO QDAY #90 tablet 04/10/19 07/11/19 Unknown Rx Nicotine [Habitrol] 7 mg TD QDAY #30 patch 04/10/19 07/11/19 Unknown Rx Tenofovir [Viread] 300 mg PO QDAY #90 tablet 04/10/19 07/11/19 04/27/19 08:00 Rx lamiVUDine [Lamivudine] 150 mg PO DAILY #90 tablet 04/10/19 07/11/19 04/27/19 08:00 Rx Gabapentin 600 mg PO TID 30 Days #180 cap 04/30/19 07/11/19 Unknown Rx Pantoprazole [Protonix TAB] 40 mg PO BID #60 tablet 04/30/19 07/11/19 Unknown Rx Albuterol Mdi (or & Nicu Only) 2 puff IH QID PRN #8.5 gram 07/15/19 Unknown Rx [ProAir HFA Inhaler] ED Physical Exam - General Limitations: No Limitations General appearance: alert, in no apparent distress - Head Head exam: Present: atraumatic, normocephalic - Eye Eye exam: Present: normal appearance - ENT ENT exam: Present: mucous membranes moist - Neck Neck exam: Present: normal inspection - Respiratory Respiratory exam: Present: normal lung sounds bilaterally. Absent: respiratory distress, wheezes, rales - Cardiovascular Cardiovascular Exam: Present: regular rate, normal rhythm. Absent: systolic murmur, diastolic murmur, rubs, gallop - GI/Abdominal GI/Abdominal exam: Present: soft, tenderness, normal bowel sounds - Rectal Rectal exam: Present: deferred - Extremities Exam Extremities exam: Present: normal inspection - Back Exam Back exam: Present: normal inspection - Neurological Exam Neurological exam: Present: alert, oriented X3 - Psychiatric Psychiatric exam: Present: normal affect, normal mood - Skin Skin exam: Present: warm, dry, intact, normal color. Absent: rash ED Course Vital Signs 10/03/20 10/03/20 10/03/20 03:59 09:45 18:29 Temperature 99.6 F 97.7 F 98.7 F Pulse Rate 98 H 79 Respiratory 18 20 20 Rate Blood Pressure 165/88 188/84 Blood Pressure 162/101 [Right] O2 Sat by Pulse 100 100 Oximetry 10/03/20 10/04/20 18:32 00:26 Temperature 98.9 F Pulse Rate 79 Respiratory Rate Blood Pressure Blood Pressure [Right] O2 Sat by Pulse 100 98 Oximetry - Reevaluation(s) Reevaluation #1: Patient states her nausea is improved. Patient states her pain is improved. 10/03/20 23:48 Reevaluation #2: She states her pain is improved. I discussed all results with patient. I discussed plan of care with patient. Patient agrees with plan of care and admission. Patient to be admitted to the hospitalist service. 10/04/20 01:06 - Consultations Consultation #1: I discussed case with GI. Dr. Ocasio agrees to see the patient. Dr. Ocasio agrees with Protonix drip and Kayexalate. Dr. Ocasio wants the patient to be n.p.o. after the Kayexalate. 10/04/20 01:06 Consultation #2: Hospitalist consulted for admission. Hospitalist to admit patient. 10/04/20 01:06 ED Medical Decision Making - Lab Data Result diagrams: 10/03/20 04:23 10/03/20 04:23 - Radiology Data Radiology results: report reviewed, image reviewed interpreted by me: Chest x-ray: No pneumonia, no pneumothorax, no foreign body, no osseous findings, no acute findings CHEST 2 VIEWS INDICATION / CLINICAL INFORMATION: Chest pain. COMPARISON: None available. FINDINGS: SUPPORT DEVICES: None. HEART / MEDIASTINUM: No significant abnormality. LUNGS / PLEURA: No significant pulmonary or pleural abnormality. No pneumothorax. ADDITIONAL FINDINGS: No significant additional findings. IMPRESSION: 1. No acute findings. CT ABDOMEN AND PELVIS WITHOUT CONTRAST INDICATION / CLINICAL INFORMATION: "Generalized" abd pain with coffee ground emesis x 2 days. TECHNIQUE: Axial CT images were obtained through the abdomen and pelvis without IV contrast. All CT scans at this location are performed using CT dose reduction for ALARA by means of automated exposure control. COMPARISON: CT dated 05/06/16 FINDINGS: LOWER CHEST: Mild right lung base atelectasis. LIVER: No significant abnormality. GALLBLADDER: Small calcified gallstones are unchanged. No inflammation. BILE DUCTS: No significant abnormality. PANCREAS: No significant abnormality. SPLEEN: No significant abnormality. ADRENALS: No significant abnormality. RIGHT KIDNEY / URETER: Interval right renal atrophy. No acute abnormality. LEFT KIDNEY / URETER: Interval left renal atrophy. No acute abnormality. STOMACH / SMALL BOWEL: Fluid-filled, minimally dilated loops of small bowel with no transition point. COLON: No significant abnormality. APPENDIX: Not visualized. PERITONEUM: No free fluid. No free air. No fluid collection. LYMPH NODES: No significant adenopathy. AORTA / ARTERIES: Mild atherosclerotic calcification without acute abnormality. IVC / VEINS: No significant abnormality. URINARY BLADDER: No significant abnormality. REPRODUCTIVE ORGANS: Uterus is absent. No significant adnexal abnormality. ADDITIONAL FINDINGS: None. SKELETAL SYSTEM: No significant abnormality. IMPRESSION: 1. Fluid-filled, minimally dilated loops of small bowel without obstruction. Findings could relate to enteritis. 2. Interval development of renal atrophy. Laboratory correlation is recomme nded. 3. Tiny gallstones without acute inflammation, unchanged. - Medical Decision Making Patient is a 60-year-old female that presents emergency room with complaints of coffee-ground emesis, melena, abdominal pain, Nausea vomiting. Patient states she has been well for 2 days. Patient's vital signs were stable. Patient had labs done which showed anemia and end-stage renal disease, hyperkalemia, elevated BNP. Patient's chest x-ray was negative for acute findings. Patient has a history of peptic ulcers. Patient given IV fluids and placed on a Protonix drip. I discussed case with GI recommendations were received. GI wants patient n.p.o. and agrees with the current plan of care to include Protonix drip and Kayexalate. Patient given Kayexalate for hyperkalemia. Patient is due for dialysis in the morning. Patient admitted to the hospital service for further evaluation and treatment. Critical care time documented due to the multiple reassessments, prolonged time at the bedside, interpretation of diagnostics and labs and discussion with consultants.. - Differential Diagnosis GI bleed, melena, coffee-ground emesis, nausea, vomiting, abdominal pain Critical Care Time: Yes Critical care time in (mins) excluding proc time.: 35 Critical care attestation.: If time is entered above; I have spent that time in minutes in the direct care of this critically ill patient, excluding procedure time. Critical Care Time: 35 minutes ED Disposition Clinical Impression: ESRD (end stage renal disease) on dialysis, Coffee ground emesis, Melena, Gastroenteritis, Acute hyperkalemia GI bleed Qualifiers: GI bleed type/associated pathology: unspecified gastrointestinal hemorrhage type Qualified Code(s): K92.2 - Gastrointestinal hemorrhage, unspecified Nausea & vomiting Qualifiers: Vomiting type: unspecified Vomiting Intractability: non-intractable Qualified Code(s): R11.2 - Nausea with vomiting, unspecified Anemia Qualifiers: Anemia type: unspecified type Qualified Code(s): D64.9 - Anemia, unspecified Disposition: OP ADMIT IP TO THIS HOSP Is pt being admited?: Yes Does the pt Need Aspirin: No Condition: Critical Instructions: Abdominal Pain (ED) Time of Disposition: 00:45
[2020-10-03] MEDS ORDERED: SODIUM CHLORIDE 0.9% 1000 ML 1,000 ML IV ONE (22:47)
[2020-10-03] MEDS ORDERED: HYDROmorphone 1 MG/1 ML INJ IV ONE (22:48)
[2020-10-03] MEDS ORDERED: ONDANSETRON 4 MG/2 ML INJ IV ONE (22:49)
[2020-10-03] MEDS: PANTOPRAZOLE 80 MG in SODIUM CHLORIDE 0.9% 100 ML IV SCH (23:33)
--- NOTE | 2020-10-04 00:04 | Cat Scan Report ---
CT ABDOMEN AND PELVIS WITHOUT CONTRAST INDICATION / CLINICAL INFORMATION: "Generalized" abd pain with coffee ground emesis x 2 days. TECHNIQUE: Axial CT images were obtained through the abdomen and pelvis without IV contrast. All CT scans at this location are performed using CT dose reduction for ALARA by means of automated exposure control. COMPARISON: CT dated 05/06/16 FINDINGS: LOWER CHEST: Mild right lung base atelectasis. LIVER: No significant abnormality. GALLBLADDER: Small calcified gallstones are unchanged. No inflammation. BILE DUCTS: No significant abnormality. PANCREAS: No significant abnormality. SPLEEN: No significant abnormality. ADRENALS: No significant abnormality. RIGHT KIDNEY / URETER: Interval right renal atrophy. No acute abnormality. LEFT KIDNEY / URETER: Interval left renal atrophy. No acute abnormality. STOMACH / SMALL BOWEL: Fluid-filled, minimally dilated loops of small bowel with no transition point. COLON: No significant abnormality. APPENDIX: Not visualized. PERITONEUM: No free fluid. No free air. No fluid collection. LYMPH NODES: No significant adenopathy. AORTA / ARTERIES: Mild atherosclerotic calcification without acute abnormality. IVC / VEINS: No significant abnormality. URINARY BLADDER: No significant abnormality. REPRODUCTIVE ORGANS: Uterus is absent. No significant adnexal abnormality. ADDITIONAL FINDINGS: None. SKELETAL SYSTEM: No significant abnormality. IMPRESSION: 1. Fluid-filled, minimally dilated loops of small bowel without obstruction. Findings could relate to enteritis. 2. Interval development of renal atrophy. Laboratory correlation is recommended. 3. Tiny gallstones without acute inflammation, unchanged. Signer Name: Carlos Posey MD Signed: 10/03/2020 11:59 PM Workstation Name: [id number]
[2020-10-04 00:54] LABS: INR 1.03 (0.87-1.13)
[2020-10-04 00:55] LABS: Partial Thromboplastin Time 32.1 Sec. (24.2-36.6)
[2020-10-04] MEDS ORDERED: SODIUM POLYSTYRENE 15 GM/60 ML ORAL LIQD PO ONE ×2 (01:05→21:24)
[2020-10-04] MEDS ORDERED: ONDANSETRON 4 MG/2 ML INJ IV PRN (01:59)
[2020-10-04] MEDS ORDERED: MORPHINE 4 MG/1 ML INJ IV PRN (01:59)
[2020-10-04] MEDS ORDERED: MORPHINE 2 MG/1 ML INJ IV PRN (01:59)
--- NOTE | 2020-10-04 02:16 | History and Physical Report ---
History of Present Illness Date of examination: 10/04/20 Date of admission: 10/04/2020 Chief complaint: Coffee-ground emesis Melena Abdominal pain History of present illness: 60-year-old female with significant past medical history of end-stage renal disease on dialysisMondays, Wednesdays and Saturdays CVA in the past, hypertension, diabetes mellitus, HIV positive, history of depression presents to the emergency room today complaining of abdominal pain, coffee-ground emesis and melena all of which started about 2 days ago. Abdominal pain is said to be more in the upper abdomen. She denies any intake of nonsteroidal anti-inflammatory medication. She denies any chest pain or shortness of breath, no headache or dizziness and no diaphoresis. Patient denies any fever or chills, denies any hematuria or dysuria. Patient denies any sick contacts and no recent travel. Denies any contact with anyone with COVID-19. She has been compliant with her dialysis. Work-up in the emergency room today reveals hemoglobin of 8.1 and hematocrit of 23.7. Potassium of 5.8, sodium of 136. BNP of 6818 Coffee-ground emesis that subsided upon arrival in the emergency room. She has been started on Protonix drips. Past History Past Medical History: arthritis, diabetes, dialysis (Wednesday, Wednesdays and Fridays), ESRD, HIV/AIDS, hypertension, stroke (In 2014), other (History of depression, neuropathy,) Past Surgical History: Other (C SECTION, Left Arm AV fistula, right chest permcath. hysterectomy) Social history: smoking (Current daily smoker) Family history: no significant family history Medications and Allergies Allergies Allergy/AdvReac Type Severity Reaction Status Date / Time lisinopril Allergy Severe Angioedema Verified 10/04/20 02:31 Home Medications Medication Instructions Recorded Confirmed Last Taken Type Amlodipine Besylate [Norvasc] 5 mg PO BID 12/30/16 07/11/19 04/26/19 21:00 History Carvedilol [Coreg] 25 mg PO BIDWM 12/30/16 07/11/19 04/27/19 08:30 History Folic Acid [Folvite] 1 mg PO QDAY #90 tablet 04/10/19 07/11/19 Unknown Rx Nicotine [Habitrol] 7 mg TD QDAY #30 patch 04/10/19 07/11/19 Unknown Rx Tenofovir [Viread] 300 mg PO QDAY #90 tablet 04/10/19 07/11/19 04/27/19 08:00 Rx lamiVUDine [Lamivudine] 150 mg PO DAILY #90 tablet 04/10/19 07/11/19 04/27/19 08:00 Rx Gabapentin 600 mg PO TID 30 Days #180 cap 04/30/19 07/11/19 Unknown Rx Pantoprazole [Protonix TAB] 40 mg PO BID #60 tablet 04/30/19 07/11/19 Unknown Rx Albuterol Mdi (or & Nicu Only) 2 puff IH QID PRN #8.5 gram 07/15/19 Unknown Rx [ProAir HFA Inhaler] Active Meds: Active Medications Acetaminophen (Acetaminophen 325 Mg Tab) 650 mg PO Q4H PRN PRN Reason: Pain MILD(1-3)/Fever >100.5/SHIRLEY Sodium Chloride (Nacl 0.9% 1000 Ml) 1,000 mls @ 250 mls/hr IV ONCE ONE Stop: 10/04/20 02:46 Last Admin: 10/03/20 23:33 Dose: 250 mls/hr Documented by: Pantoprazole Sodium 80 mg/ (Sodium Chloride) 100 mls @ 10 mls/hr IV DIRECT VENKAT Last Admin: 10/03/20 23:33 Dose: 8 mg/hr, 10 mls/hr Documented by: Morphine Sulfate (Morphine 2 Mg/1 Ml Inj) 2 mg IV Q4H PRN PRN Reason: Pain, Moderate (4-6) Morphine Sulfate (Morphine 4 Mg/1 Ml Inj) 4 mg IV Q4H PRN PRN Reason: Pain , Severe (7-10) Ondansetron HCl (Ondansetron 4 Mg/2 Ml Inj) 4 mg IV Q8H PRN PRN Reason: Nausea And Vomiting Sodium Chloride (Sodium Chloride 0.9% 10 Ml Flush Syringe) 10 ml IV BID VENKAT Sodium Chloride (Sodium Chloride 0.9% 10 Ml Flush Syringe) 10 ml IV PRN PRN PRN Reason: LINE FLUSH Review of Systems Constitutional: no fever, no chills, no weakness Ears, nose, mouth and throat: no nasal congestion, no sore throat Cardiovascular: no chest pain, no palpitations Respiratory: no cough, no shortness of breath Gastrointestinal: abdominal pain, nausea, vomiting, coffee ground emesis, melena Genitourinary Female: no pelvic pain, no flank pain, no dysuria, no hematuria Musculoskeletal: no neck pain, no low back pain Integumentary: no rash, no pruritis Neurological: no headaches, no confusion Psychiatric: no anxiety, no depression Endocrine: no polydipsia, no polyuria, no nocturia Exam - Constitutional Vitals: Temp Pulse Resp BP Pulse Ox 98.9 F 79 20 188/84 98 10/04/20 00:26 10/03/20 18:32 10/03/20 18:29 10/03/20 18:29 10/04/20 00:26 General appearance: Present: no acute distress, well-nourished - EENT Eyes: Present: PERRL, EOM intact. Absent: scleral icterus ENT: hearing intact, clear oral mucosa, dentition normal - Neck Neck: Present: supple, normal ROM - Respiratory Respiratory effort: normal Respiratory: bilateral: CTA - Cardiovascular Rhythm: regular Heart Sounds: Present: S1 & S2. Absent: systolic murmur, diastolic murmur, rub, click - Extremities Extremities: no ischemia, pulses intact, pulses symmetrical, No edema, normal temperature, Full ROM Peripheral Pulses: within normal limits - Abdominal General gastrointestinal: Present: soft, tender (Epigastric tenderness ,no r ebound tenderness, no guarding), non-distended, normal bowel sounds. Absent: mass - Integumentary Integumentary: Present: clear, warm, dry. Absent: rash - Musculoskeletal Musculoskeletal: strength equal bilaterally - Psychiatric Psychiatric: appropriate mood/affect, intact judgment & insight, memory intact, cooperative - Neurologic Neurologic: CNII-XII intact, no focal deficits, moves all extremities Results - Labs CBC & Chem 7: 10/03/20 04:23 10/03/20 04:23 Labs: Abnormal lab results 10/03/20 10/03/20 10/03/20 Range/Units 04:23 04:23 04:23 RBC 2.36 L (3.65-5.03) M/mm3 Hgb 8.1 L (10.1-14.3) gm/dl Hct 23.7 L (30.3-42.9) % MCV 100 H (79-97) fl MCH 34 H (28-32) pg RDW 15.9 H (13.2-15.2) % [place] % (Auto) 10.4 H (0.0-7.3) % Sodium 136 L (137-145) mmol/L Potassium 5.8 H (3.6-5.0) mmol/L Chloride 95.8 L (98-107) mmol/L Carbon Dioxide 20 L (22-30) mmol/L BUN 81 H (7-17) mg/dL Creatinine 9.9 H (0.6-1.2) mg/dL Glucose 104 H (65-100) mg/dL Magnesium 3.20 H (1.7-2.3) mg/dL NT-Pro-B Natriuret Pep 6818 H (0-900) pg/mL Lipase 75 H (13-60) units/L Assessment and Plan - Patient Problems (1) GI bleed Current Visit: No Status: Acute Qualifiers: GI bleed type/associated pathology: unspecified gastrointestinal hemorrhage type Qualified Code(s): K92.2 - Gastrointestinal hemorrhage, unspecified Plan to address problem: Patient has been placed n.p.o. She has been started on Protonix drip. Consult placed to gastroenterology for evaluation. (2) Hyperkalemia Current Visit: No Status: Acute Plan to address problem: Patient has had Kayexalate in the emergency room. We will monitor EKG and also monitor potassium levels. (3) HIV (human immunodeficiency virus infection) Current Visit: No Status: Chronic Qualifiers: HIV symptom status: unspecified Qualified Code(s): B20 - Human immunodeficiency virus [HIV] disease Plan to address problem: CD4 count unknown. We will continue routine home medications. Patient encouraged to follow-up with infectious disease. (4) Anemia Current Visit: No Status: Acute Qualifiers: Anemia type: unspecified type Qualified Code(s): D64.9 - Anemia, unspecified Plan to address problem: We will monitor CBC. (5) IDDM (insulin dependent diabetes mellitus) Current Visit: No Status: Chronic Plan to address problem: Patient placed on sliding scale insulin. We will monitor Accu-Cheks. (6) HTN (hypertension) Current Visit: No Status: Chronic Qualifiers: Hypertension type: essential hypertension Plan to address problem: Blood pressure appears stable. We will monitor closely. We will resume routine home medications when patient is able to tolerate p.o. intake. (7) DVT prophylaxis Current Visit: No Status: Acute Plan to address problem: And placed on sequential compression device. (8) Full code status Current Visit: No Status: Acute Plan to address problem: Patient is full code
--- NOTE | 2020-10-04 07:51 | Gastroenterology Consultation ---
History of Present Illness - Reason for Consult Consult date: 10/04/20 GI bleed Requesting physician: CHRIS LANGE III - History of Present Illness Is a pleasant 60-year-old female with significant local history as below presents for abdominal pain nausea vomiting GI bleed Patient reports her symptoms began approximately 2 to 3 days ago Abdominal pain that is mid and epigastric in location, moderate to severe, worsening, sharp and cramping, constant, worse with eating and palpation better with nothing, associated with coffee-ground emesis and dark stool as well as fatigue Of note patient with multiple medical comorbidities as detailed below Found to have severe anemia and electrolyte abnormalities on labs Last EGD/colon 04/2019 with gastric AVM's that were treated and poor colon cleanse PAST MEDICAL HISTORY: hypertension, diabetes, HIV, CVA, depression, end-stage renal disease on dialysis PAST SURGICAL HISTORY: , AV fistula, hysterectomy SOCIAL HISTORY: Social alcohol, smoke 1/3 pack a day, +marijuana FAMILY HISTORY: Hypertension Obtained/updated/reviewed patient's current medications Past History Past Medical History: arthritis, diabetes, dialysis (Wednesday, Wednesdays and Fridays), ESRD, HIV/AIDS, hypertension, stroke (In 2014), other (History of depression, neuropathy,) Past Surgical History: Other (C SECTION, Left Arm AV fistula, right chest permcath. hysterectomy) Social history: smoking (Current daily smoker) Family history: no significant family history Medications and Allergies Allergies Allergy/AdvReac Type Severity Reaction Status Date / Time lisinopril Allergy Severe Angioedema Verified 10/04/20 02:31 Home Medications Medication Instructions Recorded Confirmed Last Taken Type Amlodipine Besylate [Norvasc] 5 mg PO BID 12/30/16 07/11/19 04/26/19 21:00 History Carvedilol [Coreg] 25 mg PO BIDWM 12/30/16 07/11/19 04/27/19 08:30 History Folic Acid [Folvite] 1 mg PO QDAY #90 tablet 04/10/19 07/11/19 Unknown Rx Nicotine [Habitrol] 7 mg TD QDAY #30 patch 04/10/19 07/11/19 Unknown Rx Tenofovir [Viread] 300 mg PO QDAY #90 tablet 04/10/19 07/11/19 04/27/19 08:00 Rx lamiVUDine [Lamivudine] 150 mg PO DAILY #90 tablet 04/10/19 07/11/19 04/27/19 08:00 Rx Gabapentin 600 mg PO TID 30 Days #180 cap 04/30/19 07/11/19 Unknown Rx Pantoprazole [Protonix TAB] 40 mg PO BID #60 tablet 04/30/19 07/11/19 Unknown Rx Albuterol Mdi (or & Nicu Only) 2 puff IH QID PRN #8.5 gram 07/15/19 Unknown Rx [ProAir HFA Inhaler] Active Meds: Active Medications Acetaminophen (Acetaminophen 325 Mg Tab) 650 mg PO Q4H PRN PRN Reason: Pain MILD(1-3)/Fever >100.5/SHIRLEY Pantoprazole Sodium 80 mg/ (Sodium Chloride) 100 mls @ 10 mls/hr IV DIRECT VENKAT Last Admin: 10/03/20 23:33 Dose: 8 mg/hr, 10 mls/hr Documented by: Morphine Sulfate (Morphine 2 Mg/1 Ml Inj) 2 mg IV Q4H PRN PRN Reason: Pain, Moderate (4-6) Morphine Sulfate (Morphine 4 Mg/1 Ml Inj) 4 mg IV Q4H PRN PRN Reason: Pain , Severe (7-10) Ondansetron HCl (Ondansetron 4 Mg/2 Ml Inj) 4 mg IV Q8H PRN PRN Reason: Nausea And Vomiting Sodium Chloride (Sodium Chloride 0.9% 10 Ml Flush Syringe) 10 ml IV BID VENKAT Sodium Chloride (Sodium Chloride 0.9% 10 Ml Flush Syringe) 10 ml IV PRN PRN PRN Reason: LINE FLUSH Review of Systems - Review of Systems All systems: negative (10 Systems reviewed and negative except as mentioned above in the history of present illness) Exam - Constitutional Vital Signs: Temp Pulse Resp BP Pulse Ox 98.9 F 77 12 129/72 90 10/04/20 00:26 10/04/20 06:01 10/04/20 06:01 10/04/20 06:01 10/04/20 06:01 General appearance: other (Mildly lethargic, no acute distress, patient with dried coffee grounds on her sheet and clothing) - EENT Eyes: EOM intact ENT: hearing intact - Neck Neck: supple - Respiratory Respiratory effort: normal - Cardiovascular Rhythm: regular Heart Sounds: Present: systolic murmur - Gastrointestinal General gastrointestinal: Present: soft, tender, normal bowel sounds - Integumentary Integumentary: Present: dry - Neurologic Neurological: alert and oriented x3 - Psychiatric Psychiatric: appropriate mood/affect - Labs CBC & Chem 7: 10/03/20 04:23 10/03/20 04:23 Lab Results: Laboratory Results - last 24 hr 10/03/20 10/04/20 04:23 00:00 PT 14.0 INR 1.03 APTT 32.1 Phosphorus 3.70 Magnesium 3.20 H NT-Pro-B Natriuret Pep 6818 H Assessment and Plan Patient with history of AVMs presenting with evidence of GI bleed Patient however with electrolyte abnormalities and needing dialysis Additionally she is currently hemodynamically stable and reports no bowel movement since last night Therefore the patient does have evidence for gastrointestinal bleed she does not have evidence for active massive GI bleed. Therefore she does not require emergency endoscopy rather she would benefit from upper endoscopy and colonoscopy as she has a history of AVMs and suspect recurrent AVMs plus minus peptic ulcer disease as the source of her GI bleeding Therefore recommend: * Twice daily PPI * Clear liquid diet * Trend hemoglobin and monitor closely * Tentative plan for EGD and colonoscopy on Wednesday - Patient Problems (1) Arteriovenous malformation of digestive system vessel Current Visit: Yes Status: Acute (2) Abdominal pain Current Visit: No Status: Acute (3) Anemia Current Visit: No Status: Acute Qualifiers: Anemia type: unspecified type Qualified Code(s): D64.9 - Anemia, unspecified (4) Coffee ground emesis Current Visit: No Status: Acute (5) Diarrhea Current Visit: No Status: Acute (6) GI bleed Current Visit: No Status: Acute Qualifiers: GI bleed type/associated pathology: unspecified gastrointestinal hemorrhage type Qualified Code(s): K92.2 - Gastrointestinal hemorrhage, unspecified (7) Melena Current Visit: No Status: Acute
[2020-10-04] MEDS: PANTOPRAZOLE 80 MG in SODIUM CHLORIDE 0.9% 100 ML IV SCH ×2 (09:09→23:26)
[2020-10-04] MEDS ORDERED: ALBUTEROL 8.5 GM MDI INHALATION IH PRN (10:00)
--- NOTE | 2020-10-04 10:02 | Event Note ---
Date: 10/04/20 Patient seen and examined no new distress still with dizziness. She says she did have bowel movement today with no dark stool. She does have significant transportation difficulty to be able to comply with an outpatient endoscopy agree with GI to proceed with endoscopy on Wednesday. Continue drip considering history of AVM. Resume medication. Advance diet as tolerated and keep n.p.o. at night 10/06/2020. For endoscopy on Wednesday
[2020-10-04] MEDS ORDERED: TENOFOVIR 300 MG TAB PO SCH (12:00)
[2020-10-04] MEDS ORDERED: ALBUTEROL 2.5 MG/3 ML NEBU IH PRN (12:00)
[2020-10-04] MEDS: amLODIPine 5 MG TAB PO SCH ×2 (12:35→21:27)
[2020-10-04] MEDS: FOLIC ACID 1 MG TAB PO SCH (12:35)
[2020-10-04] MEDS: NICOTINE 7 MG/24 HR PATCH TD SCH (12:35)
[2020-10-04] MEDS: carvediloL 25 MG TAB PO SCH ×2 (12:35→17:09)
--- NOTE | 2020-10-04 13:04 | Electrocardiograph Report ---
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
[2020-10-04] MEDS ORDERED: GABAPENTIN 300 MG CAP PO SCH (14:00)
[2020-10-04] MEDS ORDERED: SODIUM CHLORIDE 0.9% 100 ML IV PRN (20:27)
[2020-10-04] MEDS ORDERED: EPOETIN ALFA-EPBX 20,000 UNIT/1 ML VIAL SUB-Q PRN (20:27)
--- NOTE | 2020-10-04 20:27 | Event Note ---
Date: 10/04/20 Consulted for ESRD management. Mild hyperkalemia. Started on D5 NS IV. A dose of Kayexalate. Hemodialysis in AM. Spoke to DECLAN.
[2020-10-04] MEDS: D5W/0.9% NACL 1,000 ML IV SCH (21:26)
[2020-10-04] MEDS: GABAPENTIN 300 MG CAP PO SCH (21:30)
[2020-10-05 07:40] LABS: Basophils % (Auto) 0.6 % (0.0-1.8); Eosinophils # (Auto) 0.1 K/mm3 (0.0-0.4); Lymphocytes # (Auto) 1.3 K/mm3 (1.2-5.4); Lymphocytes % (Auto) 27.4 % (13.4-35.0); Mean Corpuscular HGB Conc 34 % (30-34); Mean Corpuscular Volume 101 fl (79-97); Monocytes # (Auto) 0.4 K/mm3 (0.0-0.8); Monocytes % (Auto) 8.5 % (0.0-7.3); Platelet Count 124 K/mm3 (140-440); Red Blood Count 1.36 M/mm3 (3.65-5.03); Red Cell Distribution Width 15.3 % (13.2-15.2)
[2020-10-05] MEDS: D5W/0.9% NACL 1,000 ML IV SCH (07:40)
[2020-10-05] MEDS: PANTOPRAZOLE 80 MG in SODIUM CHLORIDE 0.9% 100 ML IV SCH (07:40)
[2020-10-05 07:47] LABS: Hematocrit 13.7 % (30.3-42.9); Hemoglobin 4.7 gm/dl (10.1-14.3)
[2020-10-05 07:54] LABS: INR 1.06 (0.87-1.13)
[2020-10-05 08:57] LABS: Calcium 7.1 mg/dL (8.4-10.2)
[2020-10-05] MEDS ORDERED: SODIUM CHLORIDE 0.9% 500 ML 500 ML IV ONE (09:00)
[2020-10-05] MEDS: NICOTINE 7 MG/24 HR PATCH TD SCH (09:15)
[2020-10-05] MEDS: EMTRICITABINE 200 MG CAP PO SCH (09:16)
[2020-10-05] MEDS: amLODIPine 5 MG TAB PO SCH ×4 (09:16→21:20)
[2020-10-05] MEDS: carvediloL 25 MG TAB PO SCH ×3 (09:16→16:59)
[2020-10-05] MEDS: FOLIC ACID 1 MG TAB PO SCH (09:16)
[2020-10-05] MEDS: lamiVUDine 50 MG/5 ML ORAL LIQD PO SCH (09:17)
[2020-10-05 10:47] LABS: Hematocrit 13.3 % (30.3-42.9); Hemoglobin 4.5 gm/dl (10.1-14.3)
[2020-10-05 10:56] LABS: Hepatitis C Virus Antibody Non-Reactive (NonReactive)
[2020-10-05 11:27] LABS: Hepatitis B Surface Antigen Nonreactive (Negative)
--- NOTE | 2020-10-05 12:21 | Consultation ---
History of Present Illness - Reason for Consult Consult date: 10/05/20 end stage renal disease, hyperkalemia - History of Present Illness The patient is a 60 YO female with history significant for DM type 2, HTN, CVA, HIV, Anemia, ESRD on hemodialysis (M&F) and depression who presented to [facility] 10[facility]03 complaining of abdominal pain, coffee-ground emesis and melena of 2 days ago duration. The pain was in the upper abdomen and not radiating. She denies any intake of nonsteroidal anti-inflammatory medication, chest pain, shortness of breath, headache, dizziness, diaphoresis, fever, chills, hematuria or dysuria. Patient denies any sick contacts and no recent travel. Denies any contact with anyone with COVID-19. She has been compliant with her dialysis. Work-up in the emergency room revealed Hb 8.1, Hct 23.7, K 5.8 and BNP 6818. Patient was started on Protonix drip and admitted for further evaluation. Nephrology was consulted for ESRD management. Past History Past Medical History: arthritis, diabetes, dialysis (Wednesday, Wednesdays and ), ESRD, HIV/AIDS, hypertension, stroke (In 2014), other (History of depression, neuropathy,) Past Surgical History: Other (C SECTION, Left Arm AV fistula, right chest perm cath. hysterectomy) Social history: smoking (Current daily smoker) Family history: no significant family history Medications and Allergies Allergies Allergy/AdvReac Type Severity Reaction Status Date / Time lisinopril Allergy Severe Angioedema Verified 10/04/20 02:31 Home Medications Medication Instructions Recorded Confirmed Last Taken Type Amlodipine Besylate [Norvasc] 5 mg PO BID 12/30/16 10/04/20 04/26/19 21:00 History Carvedilol [Coreg] 25 mg PO BIDWM 12/30/16 10/04/20 04/27/19 08:30 History Folic Acid [Folvite] 1 mg PO QDAY #90 tablet 04/10/19 10/04/20 Unknown Rx Nicotine [Habitrol] 7 mg TD QDAY #30 patch 04/10/19 10/04/20 Unknown Rx Tenofovir [Viread] 300 mg PO QDAY #90 tablet 04/10/19 10/04/20 04/27/19 08:00 Rx lamiVUDine [Lamivudine] 150 mg PO DAILY #90 tablet 04/10/19 10/04/20 04/27/19 08:00 Rx Gabapentin 600 mg PO TID 30 Days #180 cap 04/30/19 10/04/20 Unknown Rx Pantoprazole [Protonix TAB] 40 mg PO BID #60 tablet 04/30/19 10/04/20 Unknown Rx Albuterol Mdi (or & Nicu Only) 2 puff IH QID PRN #8.5 gram 07/15/19 10/04/20 Un known Rx [ProAir HFA Inhaler] Active Meds: Active Medications Acetaminophen (Acetaminophen 325 Mg Tab) 650 mg PO Q4H PRN PRN Reason: Pain MILD(1-3)/Fever >100.5/SHIRLEY Albuterol (Albuterol 2.5 Mg/3 Ml Nebu) 2.5 mg IH Q4HRT PRN PRN Reason: Shortness Of Breath Amlodipine Besylate (Amlodipine 5 Mg Tab) 5 mg PO BID [facility] Last Admin: 10/05/20 09:16 Dose: 5 mg Documented by: Carvedilol (Carvedilol 25 Mg Tab) 25 mg PO 0800,1800 [facility] Last Admin: 10/05/20 09:16 Dose: 25 mg Documented by: Emtricitabine (Emtricitabine 200 Mg Cap) 200 mg PO Q4D [facility] Last Admin: 10/05/20 09:16 Dose: 200 mg Documented by: Folic Acid (Folic Acid 1 Mg Tab) 1 mg PO QDAY [facility] Last Admin: 10/05/20 09:16 Dose: 1 mg Documented by: Gabapentin (Gabapentin 300 Mg Cap) 300 mg PO QHS [facility] Last Admin: 10/04/20 21:30 Dose: 300 mg Documented by: Pantoprazole Sodium 80 mg/ (Sodium Chloride) 100 mls @ 10 mls/hr IV DIRECT [facility] Last Admin: 10/05/20 07:40 Dose: 8 mg/hr, 10 mls/hr Documented by: Dextrose/Sodium Chloride (D5ns) 1,000 mls @ 75 mls/hr IV DIRECT [facility] Last Admin: 10/05/20 07:40 Dose: 75 mls/hr Documented by: Sodium Chloride (Nacl 0.9%) 100 mls @ 999 mls/hr IV ALESSANDRO PRN PRN Reason: Hypotension Lamivudine (Lamivudine 50 Mg/5 Ml Oral Liqd) 50 mg PO DAILY [facility] Last Admin: 10/05/20 09:17 Dose: 50 mg Documented by: Morphine Sulfate (Morphine 2 Mg/1 Ml Inj) 2 mg IV Q4H PRN PRN Reason: Pain, Moderate (4-6) Morphine Sulfate (Morphine 4 Mg/1 Ml Inj) 4 mg IV Q4H PRN PRN Reason: Pain , Severe (7-10) Nicotine (Nicotine 7 Mg/24 Hr Patch) 7 mg TD QDAY [facility] Last Admin: 10/05/20 09:15 Dose: 7 mg Documented by: Ondansetron HCl (Ondansetron 4 Mg/2 Ml Inj) 4 mg IV Q8H PRN PRN Reason: Nausea And Vomiting Sodium Chloride (Sodium Chloride 0.9% 10 Ml Flush Syringe) 10 ml IV BID [facility] Last Admin: 10/05/20 09:18 Dose: 10 ml Documented by: Sodium Chloride (Sodium Chloride 0.9% 10 Ml Flush Syringe) 10 ml IV PRN PRN PRN Reason: LINE FLUSH Tenofovir Disoproxil Fumarate (Tenofovir 300 Mg Tab) 300 mg PO Fr@1000 [facility] Review of Systems Constitutional: fatigue, weakness, no weight loss, no weight gain, no fever, no chills, no anorexia Breasts: deferred Cardiovascular: high blood pressure, no chest pain, no orthopnea, no edema, no syncope, no lightheadedness, no shortness of breath Respiratory: no cough, no shortness of breath Gastrointestinal: abdominal pain, coffee ground emesis, no vomiting, no diarr hea, no BRBPR, no melena Genitourinary Female: no dysuria, no hematuria Rectal: no bleeding Musculoskeletal: muscle weakness Neurological: no convulsions, no aphasia, no change in speech, no change in mentation, no confusion Exam - Vital Signs Vital signs: Vital Signs Temp Pulse Resp BP Pulse Ox 99.6 F 98 H 18 165/88 100 10/03/20 03:59 10/03/20 03:59 10/03/20 03:59 10/03/20 03:59 10/03/20 03:59 Results - Lab Results 10/05/20 09:36 10/05/20 06:56 Most recent lab results Calcium 7.1 mg/dL (8.4-10.2) L D 10/05/20 06:56 Phosphorus 3.70 mg/dL (2.5-4.5) 10/03/20 04:23 Magnesium 3.20 mg/dL (1.7-2.3) H 10/03/20 04:23 Assessment and Plan 1. ESRD: Patient on maintenance hemodialysis twice a week, M&F. Patient was last dialyzed 09/30. Hemodialysis: 10/05. 2. FEN: Hyperkalemia, HD today, monitor. Anion-gap metabolic acidosis, HD today, monitor. Monitor lytes and volume status. 3. Coffee-ground emesis: On Protonix drip. Followed by GI. Monitor. 4. Acute blood loss Anemia, POA: 3 units of PRBC with HD today. Epogen as needed. Monitor H/H. 5. HIV: Continue home meds. 6. DM type 2. 7. Hypertension: BP controlled. Subjective: Patient was seen and examined at the bedside. Examination: General appearance: well-developed, appears stated age, not in distress HEENT: atraumatic, [place] Neck: trachea midline Respiratory: ctab Heart: S1S2, no murmur Abdomen: soft, bowel sounds heard, NT Integumentary: no obvious rash Neurologic: AO, non-focal Ext: no edema Hemodialysis access: L arm AVF
--- NOTE | 2020-10-05 12:42 | Progress Note ---
Assessment and Plan Assessment and plan: 60-year-old female with significant past medical history of end-stage renal disease on dialysisMondays, Wednesdays and Saturdays CVA in the past, hypertension, diabetes mellitus, HIV positive, history of depression presents to the emergency room today complaining of abdominal pain, coffee-ground emesis and melena all of which started about 2 days ago. Abdominal pain is said to be more in the upper abdomen. She denies any intake of nonsteroidal anti-inflammatory medication. She denies any chest pain or shortness of breath, no headache or dizziness and no diaphoresis. Patient denies any fever or chills, denies any hematuria or dysuria. Patient denies any sick contacts and no recent travel. Denies any contact with anyone with COVID-19. She has been compliant with her dialysis. Work-up in the emergency room today reveals hemoglobin of 8.1 and hematocrit of 23.7. Potassium of 5.8, sodium of 136. BNP of 6818 Coffee-ground emesis that subsided upon arrival in the emergency room. She has been started on Protonix drips. 10/05: Patient remains clinically stable although lethargic she has not tried to ambulate and is unsure about exertional dyspnea but no dyspnea at rest. She does appear more lethargic to me than yesterday. She will continue on PPI drip I did discuss with the crop and soil technician. Will transfuse patient's 3 units of packed red blood cell and follow [facility] protocol of checking after each transfusion to ensure appropriate response. Resume home medications hold every antiplatelets. (1) GI bleed Current Visit: No Status: Acute Qualifiers: GI bleed type/associated pathology: unspecified gastrointestinal hemorrhage type Qualified Code(s): K92.2 - Gastrointestinal hemorrhage, unspecified Plan to address problem: Patient has been placed n.p.o. She has been started on Protonix drip. Consult placed to gastroenterology for evaluation. (2) Hyperkalemia Current Visit: No Status: Acute Plan to address problem: Patient has had Kayexalate in the emergency room. We will monitor EKG and also monitor potassium levels. (3) HIV (human immunodeficiency virus infection) Current Visit: No Status: Chronic Qualifiers: HIV symptom status: unspecified Qualified Code(s): B20 - Human immunod eficiency virus [HIV] disease Plan to address problem: CD4 count unknown. We will continue routine home medications. Patient encouraged to follow-up with infectious disease. (4) Anemia Current Visit: No Status: Acute Qualifiers: Anemia type: unspecified type Qualified Code(s): D64.9 - Anemia, unspecified Plan to address problem: We will monitor CBC. (5) IDDM (insulin dependent diabetes mellitus) Current Visit: No Status: Chronic Plan to address problem: Patient placed on sliding scale insulin. We will monitor Accu-Cheks. (6) HTN (hypertension) Current Visit: No Status: Chronic Qualifiers: Hypertension type: essential hypertension Plan to address problem: Blood pressure appears stable. We will monitor closely. We will resume routine home medications when patient is able to tolerate p.o. intake. (7) DVT prophylaxis Current Visit: No Status: Acute Plan to address problem: And placed on sequential compression device. (8) Full code status Current Visit: No Status: Acute Plan to address problem: Patient is full code History Interval history: Patient seen and examined today no acute distress. Overnight noted that hemoglobin had dropped to 4.7. Patient asymptomatic. Hospitalist Physical - Physical exam Narrative exam: VITAL SIGNS: Reviewed. GENERAL: The patient appears normally developed, Vital signs as documented. HEAD: No signs of head trauma. EYES: Pupils are equal. Extraocular motions intact. EARS: Hearing grossly intact. MOUTH: Oropharynx is normal. NECK: No adenopathy, no JVD. CHEST: Chest with clear breath sounds bilaterally. No wheezes, rales, or rhonchi. CARDIAC: Regular rate and rhythm. S1 and S2, without murmurs, gallops, or rubs. VASCULAR: No Edema. Peripheral pulses normal and equal in all extremities. ABDOMEN: Soft, non tender and non distended. No rebound or guarding, and no masses palpated. Bowel Sounds normal. MUSCULOSKELETAL: Good range of motion of all major joints. Extremities without clubbing, cyanosis or edema. NEUROLOGIC EXAM: Alert and oriented x 3 she appears a bit drowsy. No focal sensory or strength deficits. Speech normal. Follows commands. PSYCHIATRIC: Mood normal. SKIN: detail exam as documented in skin assessment - Constitutional Vitals: Temp Pulse Resp BP Pulse Ox 98.8 F 78 19 125/78 100 10/05/20 08:08 10/05/20 09:16 10/05/20 08:08 10/05/20 09:16 10/05/20 08:08 General appearance: Present: no acute distress, well-nourished Results - Labs CBC & Chem 7: 10/05/20 09:36 10/05/20 06:56 Labs: Laboratory Last Values WBC 4.7 K/mm3 (4.5-11.0) 10/05/20 06:56 RBC 1.36 M/mm3 (3.65-5.03) L 10/05/20 06:56 Hgb 4.5 gm/dl (10.1-14.3) L* 10/05/20 09:36 Hct 13.3 % (30.3-42.9) L* 10/05/20 09:36 MCV 101 fl (79-97) H 10/05/20 06:56 MCH 35 pg (28-32) H 10/05/20 06:56 MCHC 34 % (30-34) 10/05/20 06:56 RDW 15.3 % (13.2-15.2) H 10/05/20 06:56 Plt Count 124 K/mm3 (140-440) L 10/05/20 06:56 Lymph % (Auto) 27.4 % (13.4-35.0) 10/05/20 06:56 [place] % (Auto) 8.5 % (0.0-7.3) H 10/05/20 06:56 Eos % (Auto) 2.0 % (0.0-4.3) 10/05/20 06:56 Baso % (Auto) 0.6 % (0.0-1.8) 10/05/20 06:56 Lymph # (Auto) 1.3 K/mm3 (1.2-5.4) 10/05/20 06:56 [place] # (Auto) 0.4 K/mm3 (0.0-0.8) 10/05/20 06:56 Eos # (Auto) 0.1 K/mm3 (0.0-0.4) 10/05/20 06:56 Baso # (Auto) 0.0 K/mm3 (0.0-0.1) 10/05/20 06:56 Seg Neutrophils % 61.5 % (40.0-70.0) 10/05/20 06:56 Seg Neutrophils # 2.9 K/mm3 (1.8-7.7) 10/05/20 06:56 PT 14.3 Sec. (12.2-14.9) 10/05/20 06:56 INR 1.06 (0.87-1.13) 10/05/20 06:56 APTT 32.1 Sec. (24.2-36.6) 10/04/20 00:00 Sodium 134 mmol/L (137-145) L 10/05/20 06:56 Potassium 5.2 mmol/L (3.6-5.0) H 10/05/20 06:56 Chloride 98.8 mmol/L (98-107) 10/05/20 06:56 Carbon Dioxide 18 mmol/L (22-30) L 10/05/20 06:56 Anion Gap 22 mmol/L 10/05/20 06:56 BUN 101 mg/dL (7-17) H 10/05/20 06:56 Creatinine 12.1 mg/dL (0.6-1.2) H 10/05/20 06:56 Estimated GFR 4 ml/min 10/05/20 06:56 BUN/Creatinine Ratio 8 % 10/05/20 06:56 Glucose 97 mg/dL (65-100) 10/05/20 06:56 POC Glucose 97 mg/dL (70-105) 10/05/20 11:23 Calcium 7.1 mg/dL (8.4-10.2) L D 10/05/20 06:56 Phosphorus 3.70 mg/dL (2.5-4.5) 10/03/20 04:23 Magnesium 3.20 mg/dL (1.7-2.3) H 10/03/20 04:23 Total Bilirubin 0.20 mg/dL (0.1-1.2) 10/03/20 04:23 AST 11 units/L (5-40) 10/03/20 04:23 ALT 8 units/L (7-56) 10/03/20 04:23 Alkaline Phosphatase 89 units/L (35-129) 10/03/20 04:23 NT-Pro-B Natriuret Pep 6818 pg/mL (0-900) H 10/03/20 04:23 Total Protein 7.8 g/dL (6.3-8.2) 10/03/20 04:23 Albumin 4.6 g/dL (3.9-5) 10/03/20 04:23 Albumin/Globulin Ratio 1.4 % 10/03/20 04:23 Lipase 75 units/L (13-60) H 10/03/20 04:23 Hepatitis A IgM Ab Non-reactive (NonReactive) 10/05/20 09:36 Hep Bs Antigen Nonreactive (Negative) 10/05/20 09:36 Hep B Core IgM Ab Non-reactive (NonReactive) 10/05/20 09:36 Hepatitis C Antibody Non-reactive (NonReactive) 10/05/20 09:36 Blood Type B NEGATIVE 10/05/20 09:36 Antibody Screen Negative 10/05/20 09:36 Crossmatch See Detail 10/05/20 09:36 Allen/IV: Voiding Method Toilet Active Medications - Current Medications Current Medications: Generic Name Dose Route Start Last Admin Trade Name Freq PRN Reason Stop Dose Admin Acetaminophen 650 mg 10/04/20 01:59 Acetaminophen 325 Mg Tab PO Q4H PRN Pain MILD(1-3)/Fever >100.5/SHIRLEY Albuterol 2.5 mg 10/04/20 12:00 Albuterol 2.5 Mg/3 Ml Nebu IH Q4HRT PRN Shortness Of Breath Amlodipine Besylate 5 mg 10/04/20 12:00 10/05/20 09:16 Amlodipine 5 Mg Tab PO 5 mg BID VENKAT Administration Carvedilol 25 mg 10/04/20 12:00 10/05/20 09:16 Carvedilol 25 Mg Tab PO 25 mg 0800,1800 VENKAT Administration Emtricitabine 200 mg 10/05/20 10:00 10/05/20 09:16 Emtricitabine 200 Mg Cap PO 200 mg Q4D VENKAT Administration Folic Acid 1 mg 10/04/20 10:00 10/05/20 09:16 Folic Acid 1 Mg Tab PO 1 mg QDAY VENKAT Administration Gabapentin 300 mg 10/04/20 22:00 10/04/20 21:30 Gabapentin 300 Mg Cap PO 300 mg QHS VENKAT Administration Pantoprazole Sodium 80 mg/ 100 mls @ 10 mls/hr 10/03/20 23:00 10/05/20 07:40 Sodium Chloride IV 8 mg/hr DIRECT VENKAT 10 mls/hr Administration 8 MG/HR Dextrose/Sodium Chloride 1,000 mls @ 75 mls/hr 10/04/20 21:00 10/05/20 07:40 D5ns IV 75 mls/hr DIRECT VENKAT Administration Sodium Chloride 100 mls @ 999 mls/hr 10/04/20 20:27 Nacl 0.9% IV ALESSANDRO PRN Hypotension Lamivudine 50 mg 10/05/20 10:00 10/05/20 09:17 Lamivudine 50 Mg/5 Ml Oral Liqd PO 50 mg DAILY VENKAT Administration Morphine Sulfate 2 mg 10/04/20 01:59 Morphine 2 Mg/1 Ml Inj IV Q4H PRN Pain, Moderate (4-6) Morphine Sulfate 4 mg 10/04/20 01:59 Morphine 4 Mg/1 Ml Inj IV Q4H PRN Pain , Severe (7-10) Nicotine 7 mg 10/04/20 10:00 10/05/20 09:15 Nicotine 7 Mg/24 Hr Patch TD 7 mg QDAY VENKAT Administration Ondansetron HCl 4 mg 10/04/20 01:59 Ondansetron 4 Mg/2 Ml Inj IV Q8H PRN Nausea And Vomiting Sodium Chloride 10 ml 10/04/20 10:00 10/05/20 09:18 Sodium Chloride 0.9% 10 Ml Flush Syringe IV 10 ml BID VENKAT Administration Sodium Chloride 10 ml 10/04/20 01:59 Sodium Chloride 0.9% 10 Ml Flush Syringe IV PRN PRN LINE FLUSH Tenofovir Disoproxil Fumarate 300 mg 10/11/20 10:00 Tenofovir 300 Mg Tab PO Fr@1000 VENKAT
--- NOTE | 2020-10-05 15:25 | Gastroenterology Progress Note ---
Assessment and Plan 60 yo female with pmh of HIV, gastric AVMs, ESRD on HD here for GI bleed. Last EGD/colon 04/2019 with gastric AVM's that were treated and poor colon cleanse # GI bleed - suspect upper source with coffee ground emesis and melena - Hgb down to 4 range today and receiving 3 units of PRBC. - HD stable and no active signs of bleeding so does not require emergent endoscopy. rec - cont with PPI IV - monitor H/H and for signs of active bleeding. - in case of active GI bleeding leading to hemodynamic instability that require emergent endoscopy, may need to transfer to another facility over the weekend. - otherwise, will plan for EGD on Wednesday. - clear liquid diet. - Patient Problems (1) Coffee ground emesis Current Visit: No Status: Acute (2) GI bleed Current Visit: No Status: Acute Qualifiers: GI bleed type/associated pathology: unspecified gastrointestinal hemorrhage type Qualified Code(s): K92.2 - Gastrointestinal hemorrhage, unspecified Subjective Date of service: 10/05/20 Interval history: Patient seen during HD this PM and receiving blood transfusion. Reports no BM since yesterday and no vomiting. Mild abdominal pain. Objective - Constitutional Vitals: Temp Pulse Resp BP Pulse Ox 99.9 F H 81 16 128/63 100 10/05/20 14:00 10/05/20 14:00 10/05/20 14:00 10/05/20 14:00 10/05/20 08:08 General appearance: no acute distress - EENT Eyes: EOM intact ENT: hearing intact - Respiratory Respiratory effort: normal - Cardiovascular Rhythm: regular Heart Sounds: Present: S1 & S2 - Gastrointestinal General gastrointestinal: Present: soft, tender, non-distended - Neurologic Neurological: alert and oriented x3 - Psychiatric Psychiatric: cooperative - Labs CBC & Chem 7: 10/05/20 09:36 10/05/20 06:56 Labs: Laboratory Results - last 24 hr 10/04/20 10/04/20 10/05/20 16:50 21:33 06:56 WBC 4.7 RBC 1.36 L Hgb 4.7 L* D Hct 13.7 L* D MCV 101 H MCH 35 H MCHC 34 RDW 15.3 H Plt Count 124 L Lymph % (Auto) 27.4 [place] % (Auto) 8.5 H Eos % (Auto) 2.0 Baso % (Auto) 0.6 Lymph # (Auto) 1.3 [place] # (Auto) 0.4 Eos # (Auto) 0.1 Baso # (Auto) 0.0 Seg Neutrophils % 61.5 Seg Neutrophils # 2.9 PT INR Sodium Potassium Chloride Carbon Dioxide Anion Gap BUN Creatinine Estimated GFR BUN/Creatinine Ratio Glucose POC Glucose 86 125 H Calcium Hepatitis A IgM Ab Hep Bs Antigen Hep B Core IgM Ab Hepatitis C Antibody Blood Type Antibody Screen Crossmatch 10/05/20 10/05/20 10/05/20 06:56 06:56 08:17 WBC RBC Hgb Hct MCV MCH MCHC RDW Plt Count Lymph % (Auto) D[place] % (Auto) Eos % (Auto) Baso % (Auto) Lymph # (Auto) [place]undy # (Auto) Eos # (Auto) Baso # (Auto) Seg Neutrophils % Seg Neutrophils # PT 14.3 INR 1.06 Sodium 134 L Potassium 5.2 H Chloride 98.8 Carbon Dioxide 18 L Anion Gap 22 BUN 101 H Creatinine 12.1 H Estimated GFR 4 BUN/Creatinine Ratio 8 Glucose 97 POC Glucose 94 Calcium 7.1 L D Hepatitis A IgM Ab Hep Bs Antigen Hep B Core IgM Ab Hepatitis C Antibody Blood Type Antibody Screen Crossmatch 10/05/20 10/05/20 10/05/20 09:36 09:36 09:36 WBC RBC Hgb 4.5 L* Hct 13.3 L* MCV MCH MCHC RDW Plt Count Lymph % (Auto) D[place] % (Auto) Eos % (Auto) Baso % (Auto) Lymph # (Auto) Dundy # (Auto) Eos # (Auto) Baso # (Auto) Seg Neutrophils % Seg Neutrophils # PT INR Sodium Potassium Chloride Carbon Dioxide Anion Gap BUN Creatinine Estimated GFR BUN/Creatinine Ratio Glucose POC Glucose Calcium Hepatitis A IgM Ab Non-reactive Hep Bs Antigen Nonreactive Hep B Core IgM Ab Non-reactive Hepatitis C Antibody Non-reactive Blood Type B NEGATIVE Antibody Screen Negative Crossmatch See Detail 10/05/20 11:23 WBC RBC Hgb Hct MCV MCH MCHC RDW Plt Count Lymph % (Auto) [place] % (Auto) Eos % (Auto) Baso % (Auto) Lymph # (Auto) [place] # (Auto) Eos # (Auto) Baso # (Auto) Seg Neutrophils % Seg Neutrophils # PT INR Sodium Potassium Chloride Carbon Dioxide Anion Gap BUN Creatinine Estimated GFR BUN/Creatinine Ratio Glucose POC Glucose 97 Calcium Hepatitis A IgM Ab Hep Bs Antigen Hep B Core IgM Ab Hepatitis C Antibody Blood Type Antibody Screen Crossmatch
[2020-10-05] MEDS: ACETAMINOPHEN 325 MG TAB PO PRN (21:20)
[2020-10-05] MEDS: GABAPENTIN 300 MG CAP PO SCH (21:20)
[2020-10-06] MEDS: PANTOPRAZOLE 80 MG in SODIUM CHLORIDE 0.9% 100 ML IV SCH ×3 (00:10→21:36)
[2020-10-06 06:38] LABS: Hematocrit 24.1 % (30.3-42.9); Hemoglobin 8.6 gm/dl (10.1-14.3); Mean Corpuscular HGB Conc 36 % (30-34); Mean Corpuscular Volume 94 fl (79-97); Platelet Count 122 K/mm3 (140-440); Red Blood Count 2.56 M/mm3 (3.65-5.03); Red Cell Distribution Width 14.8 % (13.2-15.2)
[2020-10-06] MEDS: lamiVUDine 50 MG/5 ML ORAL LIQD PO SCH (09:35)
[2020-10-06] MEDS: NICOTINE 7 MG/24 HR PATCH TD SCH (09:35)
[2020-10-06] MEDS: FOLIC ACID 1 MG TAB PO SCH (09:36)
[2020-10-06] MEDS: amLODIPine 5 MG TAB PO SCH ×2 (09:36→21:36)
[2020-10-06] MEDS: carvediloL 25 MG TAB PO SCH ×2 (09:36→17:24)
[2020-10-06] MEDS: D5W/0.9% NACL 1,000 ML IV SCH (09:42)
--- NOTE | 2020-10-06 11:41 | Progress Note ---
Assessment and Plan Assessment and plan: 60-year-old female with significant past medical history of end-stage renal disease on dialysisMondays, Wednesdays and Saturdays CVA in the past, hypertension, diabetes mellitus, HIV positive, history of depression presents to the emergency room today complaining of abdominal pain, coffee-ground emesis and melena all of which started about 2 days ago. Abdominal pain is said to be more in the upper abdomen. She denies any intake of nonsteroidal anti-inflammatory medication. She denies any chest pain or shortness of breath, no headache or dizziness and no diaphoresis. Patient denies any fever or chills, denies any hematuria or dysuria. Patient denies any sick contacts and no recent travel. Denies any contact with anyone with COVID-19. She has been compliant with her dialysis. Work-up in the emergency room today reveals hemoglobin of 8.1 and hematocrit of 23.7. Potassium of 5.8, sodium of 136. BNP of 6818 Coffee-ground emesis that subsided upon arrival in the emergency room. She has been started on Protonix drips. 10/05: Patient remains clinically stable although lethargic she has not tried to ambulate and is unsure about exertional dyspnea but no dyspnea at rest. She does appear more lethargic to me than yesterday. She will continue on PPI drip I did discuss with the electro optical engineer. Will transfuse patient's 3 units of packed red blood cell and follow [facility] protocol of checking after each transfusion to ensure appropriate response. Resume home medications hold every antiplatelets. 10/06: Patient seen and examined continue supportive care. Noted improvement following transfusion. imaging studies were concerning for dilated, loops with no obstruction. will start the patient on reglan. Tom-endoscopy planned for tomorrow. (1) GI bleed Current Visit: No Status: Acute Qualifiers: GI bleed type/associated pathology: unspecified gastrointestinal hemorrhage type Qualified Code(s): K92.2 - Gastrointestinal hemorrhage, unspecified Plan to address problem: Patient has been placed n.p.o. She has been started on Protonix drip. Consult placed to gastroenterology for evaluation. (2) Hyperkalemia Current Visit: No Status: Acute Plan to address problem: Patient has had Kayexalate in the emergency room. We will monitor EKG and also monitor potassium levels. (3) HIV (human immunodeficiency virus infection) Current Visit: No Status: Chronic Qualifiers: HIV symptom status: unspecified Qualified Code(s): B20 - Human immunodeficiency virus [HIV] disease Plan to address problem: CD4 count unknown. We will continue routine home medications. Patient encouraged to follow-up with infectious disease. (4) Anemia Current Visit: No Status: Acute Qualifiers: Anemia type: unspecified type Qualified Code(s): D64.9 - Anemia, unspecifi ed Plan to address problem: We will monitor CBC. (5) IDDM (insulin dependent diabetes mellitus) Current Visit: No Status: Chronic Plan to address problem: Patient placed on sliding scale insulin. We will monitor Accu-Cheks. (6) HTN (hypertension) Current Visit: No Status: Chronic Qualifiers: Hypertension type: essential hypertension Plan to address problem: Blood pressure appears stable. We will monitor closely. We will resume routine home medications when patient is able to tolerate p.o. intake. (7) DVT prophylaxis Current Visit: No Status: Acute Plan to address problem: And placed on sequential compression device. (8) Full code status Current Visit: No Status: Acute Plan to address problem: Patient is full code History Interval history: Patient seen and examined today no acute distress. Hospitalist Physical - Physical exam Narrative exam: VITAL SIGNS: Reviewed. GENERAL: The patient appears normally developed, Vital signs as documented. HEAD: No signs of head trauma. EYES: Pupils are equal. Extraocular motions intact. EARS: Hearing grossly intact. MOUTH: Oropharynx is normal. NECK: No adenopathy, no JVD. CHEST: Chest with clear breath sounds bilaterally. No wheezes, rales, or rhonchi. CARDIAC: Regular rate and rhythm. S1 and S2, without murmurs, gallops, or rubs. VASCULAR: No Edema. Peripheral pulses normal and equal in all extremities. ABDOMEN: Soft, non tender and non distended. No rebound or guarding, and no masses palpated. Bowel Sounds normal. MUSCULOSKELETAL: Good range of motion of all major joints. Extremities without clubbing, cyanosis or edema. NEUROLOGIC EXAM: Alert and oriented x 3 she appears a bit drowsy. No focal sensory or strength deficits. Speech normal. Follows commands. PSYCHIATRIC: Mood normal. SKIN: detail exam as documented in skin assessment - Constitutional Vitals: Temp Pulse Resp BP Pulse Ox 98.5 F 64 18 137/63 100 10/06/20 08:26 10/06/20 04:38 10/06/20 08:26 10/06/20 08:26 10/06/20 04:38 General appearance: Present: no acute distress, well-nourished Results - Labs CBC & Chem 7: 10/06/20 05:29 10/05/20 06:56 Labs: Laboratory Last Values WBC 3.8 K/mm3 (4.5-11.0) L 10/06/20 05:29 RBC 2.56 M/mm3 (3.65-5.03) L 10/06/20 05:29 Hgb 8.6 gm/dl (10.1-14.3) L D 10/06/20 05:29 Hct 24.1 % (30.3-42.9) L D 10/06/20 05:29 MCV 94 fl (79-97) 10/06/20 05:29 MCH 34 pg (28-32) H 10/06/20 05:29 MCHC 36 % (30-34) H 10/06/20 05:29 RDW 14.8 % (13.2-15.2) 10/06/20 05:29 Plt Count 122 K/mm3 (140-440) L 10/06/20 05:29 Lymph % (Auto) 27.4 % (13.4-35.0) 10/05/20 06:56 [place]mullen % (Auto) 8.5 % (0.0-7.3) H 10/05/20 06:56 Eos % (Auto) 2.0 % (0.0-4.3) 10/05/20 06:56 Baso % (Auto) 0.6 % (0.0-1.8) 10/05/20 06:56 Lymph # (Auto) 1.3 K/mm3 (1.2-5.4) 10/05/20 06:56 [place] # (Auto) 0.4 K/mm3 (0.0-0.8) 10/05/20 06:56 Eos # (Auto) 0.1 K/mm3 (0.0-0.4) 10/05/20 06:56 Baso # (Auto) 0.0 K/mm3 (0.0-0.1) 10/05/20 06:56 Seg Neutrophils % 61.5 % (40.0-70.0) 10/05/20 06:56 Seg Neutrophils # 2.9 K/mm3 (1.8-7.7) 10/05/20 06:56 PT 14.3 Sec. (12.2-14.9) 10/05/20 06:56 INR 1.06 (0.87-1.13) 10/05/20 06:56 APTT 32.1 Sec. (24.2-36.6) 10/04/20 00:00 Sodium 134 mmol/L (137-145) L 10/05/20 06:56 Potassium 5.2 mmol/L (3.6-5.0) H 10/05/20 06:56 Chloride 98.8 mmol/L (98-107) 10/05/20 06:56 Carbon Dioxide 18 mmol/L (22-30) L 10/05/20 06:56 Anion Gap 22 mmol/L 10/05/20 06:56 BUN 101 mg/dL (7-17) H 10/05/20 06:56 Creatinine 12.1 mg/dL (0.6-1.2) H 10/05/20 06:56 Estimated GFR 4 ml/min 10/05/20 06:56 BUN/Creatinine Ratio 8 % 10/05/20 06:56 Glucose 97 mg/dL (65-100) 10/05/20 06:56 POC Glucose 266 mg/dL (70-105) H 10/06/20 11:29 Calcium 7.1 mg/dL (8.4-10.2) L D 10/05/20 06:56 Phosphorus 3.70 mg/dL (2.5-4.5) 10/03/20 04:23 Magnesium 3.20 mg/dL (1.7-2.3) H 10/03/20 04:23 Total Bilirubin 0.20 mg/dL (0.1-1.2) 10/03/20 04:23 AST 11 units/L (5-40) 10/03/20 04:23 ALT 8 units/L (7-56) 10/03/20 04:23 Alkaline Phosphatase 89 units/L (35-129) 10/03/20 04:23 NT-Pro-B Natriuret Pep 6818 pg/mL (0-900) H 10/03/20 04:23 Total Protein 7.8 g/dL (6.3-8.2) 10/03/20 04:23 Albumin 4.6 g/dL (3.9-5) 10/03/20 04:23 Albumin/Globulin Ratio 1.4 % 10/03/20 04:23 Lipase 75 units/L (13-60) H 10/03/20 04:23 Hepatitis A IgM Ab Non-reactive (NonReactive) 10/05/20 09:36 Hep Bs Antigen Nonreactive (Negative) 10/05/20 09:36 Hep B Core IgM Ab Non-reactive (NonReactive) 10/05/20 09:36 Hepatitis C Antibody Non-reactive (NonReactive) 10/05/20 09:36 Blood Type B NEGATIVE 10/05/20 09:36 Antibody Screen Negative 10/05/20 09:36 Crossmatch See Detail 10/05/20 09:36 Allen/IV: Voiding Method Toilet Active Medications - Current Medications Current Medications: Generic Name Dose Route Start Last Admin Trade Name Freq PRN Reason Stop Dose Admin Acetaminophen 650 mg 10/04/20 01:59 10/05/20 21:20 Acetaminophen 325 Mg Tab PO 650 mg Q4H PRN Administration Pain MILD(1-3)/Fever >100.5/SHIRLEY Albuterol 2.5 mg 10/04/20 12:00 Albuterol 2.5 Mg/3 Ml Nebu IH Q4HRT PRN Shortness Of Breath Amlodipine Besylate 5 mg 10/04/20 12:00 10/06/20 09:36 Amlodipine 5 Mg Tab PO 5 mg BID VENKAT Administration Carvedilol 25 mg 10/04/20 12:00 10/06/20 09:36 Carvedilol 25 Mg Tab PO 25 mg 0800,1800 VENKAT Administration Emtricitabine 200 mg 10/05/20 10:00 10/05/20 09:16 Emtricitabine 200 Mg Cap PO 200 mg Q4D VENKAT Administration Folic Acid 1 mg 10/04/20 10:00 10/06/20 09:36 Folic Acid 1 Mg Tab PO 1 mg QDAY VENKAT Administration Gabapentin 300 mg 10/04/20 22:00 10/05/20 21:20 Gabapentin 300 Mg Cap PO 300 mg QHS VENKAT Administration Pantoprazole Sodium 80 mg/ 100 mls @ 10 mls/hr 10/03/20 23:00 10/06/20 10:44 Sodium Chloride IV 8 mg/hr DIRECT VENKAT 10 mls/hr Administration 8 MG/HR Dextrose/Sodium Chloride 1,000 mls @ 75 mls/hr 10/04/20 21:00 10/06/20 09:42 D5ns IV 75 mls/hr DIRECT VENKAT Administration Sodium Chloride 100 mls @ 999 mls/hr 10/04/20 20:27 Nacl 0.9% IV ALESSANDRO PRN Hypotension Lamivudine 50 mg 10/05/20 10:00 10/06/20 09:35 Lamivudine 50 Mg/5 Ml Oral Liqd PO 50 mg DAILY VENKAT Administration Morphine Sulfate 2 mg 10/04/20 01:59 Morphine 2 Mg/1 Ml Inj IV Q4H PRN Pain, Moderate (4-6) Morphine Sulfate 4 mg 10/04/20 01:59 Morphine 4 Mg/1 Ml Inj IV Q4H PRN Pain , Severe (7-10) Nicotine 7 mg 10/04/20 10:00 10/06/20 09:35 Nicotine 7 Mg/24 Hr Patch TD 7 mg QDAY VENKAT Administration Ondansetron HCl 4 mg 10/04/20 01:59 Ondansetron 4 Mg/2 Ml Inj IV Q8H PRN Nausea And Vomiting Sodium Chloride 10 ml 10/04/20 10:00 10/06/20 09:36 Sodium Chloride 0.9% 10 Ml Flush Syringe IV 10 ml BID VENKAT Administration Sodium Chloride 10 ml 10/04/20 01:59 Sodium Chloride 0.9% 10 Ml Flush Syringe IV PRN PRN LINE FLUSH Tenofovir Disoproxil Fumarate 300 mg 10/11/20 10:00 Tenofovir 300 Mg Tab PO Fr@1000 VENKAT
--- NOTE | 2020-10-06 11:47 | Progress Note ---
Assessment and Plan 1. ESRD: Patient on maintenance hemodialysis twice a week, M&F. Patient was last dialyzed 09/30. Hemodialysis: 10/05. 2. FEN: Hyperkalemia, s/p HD, monitor. Anion-gap metabolic acidosis, s/p HD, monitor. Monitor lytes and volume status. 3. Coffee-ground emesis: On Protonix drip. Followed by GI. Monitor. 4. Acute blood loss Anemia, POA: S/p 3 units of PRBC with HD 10/05. Epogen with HD. Monitor H/H. Transfuse as needed. 5. HIV: Continue home meds. 6. DM type 2. 7. Hypertension: BP controlled. Subjective: Patient was seen and examined at the bedside. C/o decreased appetite. Examination: General appearance: well-developed, appears stated age, not in distress HEENT: atraumatic, GIDEON Neck: trachea midline Respiratory: ctab Heart: S1S2, no murmur Abdomen: soft, bowel sounds heard, NT Integumentary: no obvious rash Neurologic: AO, non-focal Ext: no edema Hemodialysis access: L arm AVF Subjective Date of service: 10/06/20 Objective - Vital Signs Vital signs: Vital Signs - 12hr 10/06/20 10/06/20 10/06/20 00:44 04:38 08:26 Temperature 98.8 F 97.9 F 98.5 F Pulse Rate 71 64 Respiratory 18 18 18 Rate Blood Pressure 131/67 139/59 137/63 O2 Sat by Pulse 96 100 Oximetry - Lab 10/06/20 05:29 10/05/20 06:56 Most recent lab results Calcium 7.1 mg/dL (8.4-10.2) L D 10/05/20 06:56 Phosphorus 3.70 mg/dL (2.5-4.5) 10/03/20 04:23 Magnesium 3.20 mg/dL (1.7-2.3) H 10/03/20 04:23 Medications & Allergies - Medications Allergies/Adverse Reactions: Allergies lisinopril Allergy (Severe, Verified 10/04/20 02:31) Angioedema Home Medications: Home Medications Medication Instructions Recorded Confirmed Last Taken Type Amlodipine Besylate [Norvasc] 5 mg PO BID 12/30/16 10/04/20 04/26/19 21:00 History Carvedilol [Coreg] 25 mg PO BIDWM 12/30/16 10/04/20 04/27/19 08:30 History Folic Acid [Folvite] 1 mg PO QDAY #90 tablet 04/10/19 10/04/20 Unknown Rx Nicotine [Habitrol] 7 mg TD QDAY #30 patch 04/10/19 10/04/20 Unknown Rx Tenofovir [Viread] 300 mg PO QDAY #90 tablet 04/10/19 10/04/20 04/27/19 08:00 Rx lamiVUDine [Lamivudine] 150 mg PO DAILY #90 tablet 04/10/19 10/04/20 04/27/19 08:00 Rx Gabapentin 600 mg PO TID 30 Days #180 cap 04/30/19 10/04/20 Unknown Rx Pantoprazole [Protonix TAB] 40 mg PO BID #60 tablet 04/30/19 10/04/20 Unknown Rx Albuterol Mdi (or & Nicu Only) 2 puff IH QID PRN #8.5 gram 07/15/19 10/04/20 Unknown Rx [ProAir HFA Inhaler] Active Medications: Generic Name Dose Route Start Last Admin Trade Name Freq PRN Reason Stop Dose Admin Acetaminophen 650 mg 10/04/20 01:59 10/05/20 21:20 Acetaminophen 325 Mg Tab PO 650 mg Q4H PRN Administration Pain MILD(1-3)/Fever >100.5/SHIRLEY Albuterol 2.5 mg 10/04/20 12:00 Albuterol 2.5 Mg/3 Ml Nebu IH Q4HRT PRN Shortness Of Breath Amlodipine Besylate 5 mg 10/04/20 12:00 10/06/20 09:36 Amlodipine 5 Mg Tab PO 5 mg BID VENKAT Administration Carvedilol 25 mg 10/04/20 12:00 10/06/20 09:36 Carvedilol 25 Mg Tab PO 25 mg 0800,1800 VENKAT Administration Emtricitabine 200 mg 10/05/20 10:00 10/05/20 09:16 Emtricitabine 200 Mg Cap PO 200 mg Q4D VENKAT Administration Folic Acid 1 mg 10/04/20 10:00 10/06/20 09:36 Folic Acid 1 Mg Tab PO 1 mg QDAY VENKAT Administration Gabapentin 300 mg 10/04/20 22:00 10/05/20 21:20 Gabapentin 300 Mg Cap PO 300 mg QHS VENKAT Administration Pantoprazole Sodium 80 mg/ 100 mls @ 10 mls/hr 10/03/20 23:00 10/06/20 10:44 Sodium Chloride IV 8 mg/hr DIRECT VENKAT 10 mls/hr Administration 8 MG/HR Dextrose/Sodium Chloride 1,000 mls @ 75 mls/hr 10/04/20 21:00 10/06/20 09:42 D5ns IV 75 mls/hr DIRECT VENKAT Administration Sodium Chloride 100 mls @ 999 mls/hr 10/04/20 20:27 Nacl 0.9% IV ALESSANDRO PRN Hypotension Lamivudine 50 mg 10/05/20 10:00 10/06/20 09:35 Lamivudine 50 Mg/5 Ml Oral Liqd PO 50 mg DAILY VENKAT Administration Morphine Sulfate 2 mg 10/04/20 01:59 Morphine 2 Mg/1 Ml Inj IV Q4H PRN Pain, Moderate (4-6) Morphine Sulfate 4 mg 10/04/20 01:59 Morphine 4 Mg/1 Ml Inj IV Q4H PRN Pain , Severe (7-10) Nicotine 7 mg 10/04/20 10:00 10/06/20 09:35 Nicotine 7 Mg/24 Hr Patch TD 7 mg QDAY VENKAT Administration Ondansetron HCl 4 mg 10/04/20 01:59 Ondansetron 4 Mg/2 Ml Inj IV Q8H PRN Nausea And Vomiting Sodium Chloride 10 ml 10/04/20 10:00 10/06/20 09:36 Sodium Chloride 0.9% 10 Ml Flush Syringe IV 10 ml BID VENKAT Administration Sodium Chloride 10 ml 10/04/20 01:59 Sodium Chloride 0.9% 10 Ml Flush Syringe IV PRN PRN LINE FLUSH Tenofovir Disoproxil Fumarate 300 mg 10/11/20 10:00 Tenofovir 300 Mg Tab PO Fr@1000 VENKAT
--- NOTE | 2020-10-06 12:24 | Gastroenterology Progress Note ---
Assessment and Plan 60 yo female with pmh of HIV, gastric AVMs, ESRD on HD here for GI bleed. Last EGD/colon 04/2019 with gastric AVM's that were treated and poor colon cleanse # GI bleed - suspect upper source with coffee ground emesis and melena - Hgb down to 4 and s/p 3 units of PRBC with appropriate response to Hgb of 8. - HD stable and no active signs of bleeding so does not require emergent endoscopy. rec - cont with PPI IV - monitor H/H and for signs of active bleeding. - in case of active GI bleeding leading to hemodynamic instability that require emergent endoscopy, may need to transfer to another facility over the weekend. - otherwise, will plan for EGD and colonoscopy on Wednesday. - clear liquid diet. - golytely prep this PM - NPO Mn - Patient Problems (1) Coffee ground emesis Current Visit: No Status: Acute (2) GI bleed Current Visit: No Status: Acute Qualifiers: GI bleed type/associated pathology: unspecified gastrointestinal hemorrhage type Qualified Code(s): K92.2 - Gastrointestinal hemorrhage, unspecified Subjective Date of service: 10/06/20 Interval history: Patient reports no BM overnight. No nausea/vomiting. Objective - Constitutional Vitals: Temp Pulse Resp BP Pulse Ox 98.5 F 64 18 137/63 100 10/06/20 08:26 10/06/20 04:38 10/06/20 08:26 10/06/20 08:26 10/06/20 04:38 General appearance: no acute distress - EENT Eyes: EOM intact ENT: hearing intact - Respiratory Respiratory effort: normal - Cardiovascular Rhythm: regular Heart Sounds: Present: S1 & S2 - Gastrointestinal General gastrointestinal: Present: soft, non-tender, non-distended - Integumentary Integumentary: Present: clear, warm - Neurologic Neurological: alert and oriented x3 - Labs CBC & Chem 7: 10/06/20 05:29 10/05/20 06:56 Labs: Laboratory Results - last 24 hr 10/05/20 10/05/20 10/05/20 09:36 16:58 21:30 WBC RBC Hgb Hct MCV MCH MCHC RDW Plt Count POC Glucose 104 136 H Blood Type B NEGATIVE Antibody Screen Negative Crossmatch See Detail 10/06/20 10/06/20 10/06/20 05:29 07:53 11:29 WBC 3.8 L RBC 2.56 L Hgb 8.6 L D Hct 24.1 L D MCV 94 MCH 34 H MCHC 36 H RDW 14.8 Plt Count 122 L POC Glucose 97 266 H Blood Type Antibody Screen Crossmatch
[2020-10-06] MEDS ORDERED: POLYETHYLENE GLYCOL/ELECT SOLN 4000 ML PO ONE (16:00)
[2020-10-06] MEDS: GABAPENTIN 300 MG CAP PO SCH (21:36)
[2020-10-06] MEDS: ACETAMINOPHEN 325 MG TAB PO PRN (21:36)
[2020-10-07 05:16] LABS: Hematocrit 23.5 % (30.3-42.9); Hemoglobin 8.4 gm/dl (10.1-14.3); Mean Corpuscular HGB Conc 36 % (30-34); Mean Corpuscular Volume 96 fl (79-97); Platelet Count 148 K/mm3 (140-440); Red Blood Count 2.44 M/mm3 (3.65-5.03); Red Cell Distribution Width 14.6 % (13.2-15.2)
[2020-10-07 05:22] LABS: Calcium 7.1 mg/dL (8.4-10.2)
[2020-10-07] MEDS: carvediloL 25 MG TAB PO SCH ×2 (08:00→17:07)
[2020-10-07] MEDS ORDERED: SODIUM CHLORIDE 0.9% 1000 ML 1,000 ML ONE (08:55)
[2020-10-07] MEDS ORDERED: WATER FOR IRRIG STERILE 250 ML BOTTLE IR ONE (08:55)
[2020-10-07] MEDS ORDERED: WATER FOR IRRIG STERILE 1,000 ML BOTTLE ONE (08:56)
[2020-10-07] MEDS ORDERED: propofoL 200 MG/20 ML VIAL IV ONE ×2 (09:49→10:23)
[2020-10-07] MEDS ORDERED: MIDAZOLAM 2 MG/2 ML INJ ONE (09:52)
--- NOTE | 2020-10-07 10:02 | Anesthesia Day of Surgery ---
Anesthesia Day of Surgery - Day of Surgery Patient Examined: Yes Patient H&P Reviewed: Yes Patient is NPO: No (Had broth recently)
--- NOTE | 2020-10-07 10:04 | Anesthesia Consultation ---
Anesthesia Consult and Med Hx Date of service: 10/07/20 - Airway Anesthetic Teeth Evaluation: Good ROM Head & Neck: Adequate Mental/Hyoid Distance: Adequate Mallampati Class: Class II Intubation Access Assessment: Good - Pre-Operative Health Status ASA Pre-Surgery Classification: ASA3 Proposed Anesthetic Plan: MAC - Pulmonary Hx Smoking: Yes (current smoker) Hx Asthma: No COPD: No Hx Pneumonia: No Hx Sleep Apnea: No - Cardiovascular System Hx Hypertension: Yes (Denies cardiac symptoms) Hx Coronary Artery Disease: Yes Hx Heart Attack/AMI: No Hx Angina: No Hx Pacemaker: No Hx Internal Defibrillator: No Hx Valvular Heart Disease: No Hx Heart Murmur: No Hx Peripheral Vascular Disease: No - Central Nervous System Hx Neuromuscular Disorder: Yes (Peripheral neuropathy) Hx Seizures: No CVA: Yes (past in 2014 no residual effect) Hx Psychiatric Problems: Yes (Depression) - Gastrointestinal Hx Ulcer: Yes - Endocrine Hx Renal Disease: Yes (07/2017 ESRD M-W-F) Hx End Stage Renal Disease: Yes (dialysis M,W,F) Hx Cirrhosis: No Hx Liver Disease: No Hx Non-Insulin Dependent Diabetes: Yes Hx Hypothyroidism: No Hx Hyperthyroidism: No - Hematic Hx Anemia: Yes (HIV+) Hx Sickle Cell Disease: No - Other Systems Hx Substance Use: Yes (MJ) - Additional Comments Anesthesia Medical History Comments: Was here twice in 04/2019
[2020-10-07] MEDS ORDERED: EPINEPHrine 1 MG/10 ML SYRINGE ONE (10:09)
[2020-10-07] MEDS ORDERED: EPINEPHrine 1 MG/10 ML SYRINGE IV ONE ×2 (10:12)
--- NOTE | 2020-10-07 11:15 | Operative Report ---
Operative Report Operative Report: Date: 10/07/2020 Endoscopist: Nato Tan MD (Jenny) EGD REPORT PREOPERATIVE DIAGNOSIS: GI bleed, melena POSTOPERATIVE DIAGNOSIS: Duodenal AVM, duodenal erosion ESTIMATED BLOOD LOSS: minimal DESCRIPTION OF PROCEDURE: A high-resolution EGD scope was passed through the oropharynx, esophagus, stomach, and second portion of duodenum. The scope was carefully withdrawn. Retroflexion was performed in the stomach. At the end of the procedure, the scope was cleaned using normal technique. Vital signs monitored continuously throughout. SEDATION: Provided by Anesthesiology Services. COMPLICATIONS: None. FINDINGS: 1. Normal esophagus exam. 2. Mild erythematous mucosa in the antrum and body. 3. A small mucosal lesion, possible AVM but not with a typical AVM appearance in the duodenal bulb with mild oozing blood. Epinephrine 1:10,000 mixture injections performed followed by gold probe cautery of the lesion. Hemostasis achieved. 4. Polypoid appearing mucosa in the duodenal bulb. Biopsies not obtained given bleeding setting. 5. A small nonbleeding duodenal erosion in the 2nd part of the duodenum found. RECOMMENDATIONS: 1. Proceed with colonoscopy.
--- NOTE | 2020-10-07 11:22 | Operative Report ---
Operative Report Operative Report: Date: 10/07/2020 Endoscopist: Nato Tan MD COLONOSCOPY REPORT PREOPERATIVE DIAGNOSIS: GI bleed, anemia POSTOPERATIVE DIAGNOSIS: sigmoid colon polyp, diverticulosis DESCRIPTION OF PROCEDURE: The colonoscope was passed to the cecum as identified by the ileocecal valve and appendiceal orifice and terminal ileum as identified by the ileal tissue. Scope was carefully withdrawn. Retroflexion was performed in the rectum. At the end of procedure, the scope was cleaned using normal technique. Vital signs monitored continuously throughout. SEDATION: Provided by An[facility]iology [facility]. Quality of the prep was fair. COMPLICATIONS: None. ESTIMATED BLOOD LOSS: minimal FINDINGS: 1. Fair prep quality. 2. Normal terminal ileum without blood noted. 3. A ~ 1.5-2 cm pedunculated polyp in the sigmoid colon found. This was removed with hot snare polypectomy after injection of epinephrine mixture. The post polypectomy site was closed with placement of one endoclip. The polyp was retrieved. 4. A few small diverticula in the sigmoid colon. 5. A small superficial mucosa tear in the rectum in the process of attempt for retroflexion in the rectum. RECOMMENDATIONS: 1. Clear liquid diet. 2. Monitor H/H and for signs of bleeding. 3. Switch PPI to PO tomorrow if H/H stable. 4. Will need repeat colonoscopy with better clean out as outpatient within 3-6 months.
--- NOTE | 2020-10-07 13:02 | Progress Note ---
Assessment and Plan 1. ESRD: Patient on maintenance hemodialysis twice a week, M&F. Patient was last dialyzed 09/30. Hemodialysis: 10/05. HD today. 2. FEN: Hyperkalemia, s/p HD, monitor. Anion-gap metabolic acidosis, s/p HD, monitor. Monitor lytes and volume status. 3. Coffee-ground emesis: On Protonix drip. Followed by GI. Monitor. 4. Acute blood loss Anemia, POA: S/p 3 units of PRBC with HD 10/05. Epogen with HD. Monitor H/H. Transfuse as needed. 5. HIV: Continue home meds. 6. DM type 2. 7. Hypertension: BP controlled. Subjective: Patient was seen and examined at the bedside. No new complaint. Examination: General appearance: well-developed, appears stated age, not in distress HEENT: atraumatic, GIDEON Neck: trachea midline Respiratory: ctab Heart: S1S2, no murmur Abdomen: soft, bowel sounds heard, NT Integumentary: no obvious rash Neurologic: AO, non-focal Ext: no edema Hemodialysis access: L arm AVF Subjective Date of service: 10/07/20 Objective - Vital Signs Vital signs: Vital Signs - 12hr 10/07/20 10/07/20 10/07/20 05:14 08:24 09:00 Temperature 98.4 F 97.9 F Pulse Rate 67 64 Pulse Rate [ 76 From Monitor] Respiratory 18 20 20 Rate Blood Pressure 145/68 128/60 O2 Sat by Pulse 100 99 98 Oximetry 10/07/20 10/07/20 10/07/20 09:09 10:49 10:59 Temperature 99.0 F 97.8 F Pulse Rate 66 70 67 Pulse Rate [ From Monitor] Respiratory 14 12 16 Rate Blood Pressure 161/78 144/65 154/76 O2 Sat by Pulse 100 100 99 Oximetry 10/07/20 10/07/20 11:09 12:11 Temperature 97.7 F Pulse Rate 68 65 Pulse Rate [ From Monitor] Respiratory 16 18 Rate Blood Pressure 156/73 141/68 O2 Sat by Pulse 99 100 Oximetry - Lab 10/07/20 04:20 10/07/20 04:20 Most recent lab results Calcium 7.1 mg/dL (8.4-10.2) L 10/07/20 04:20 Phosphorus 3.70 mg/dL (2.5-4.5) 10/03/20 04:23 Magnesium 3.20 mg/dL (1.7-2.3) H 10/03/20 04:23 Medications & Allergies - Medications Allergies/Adverse Reactions: Allergies lisinopril Allergy (Severe, Verified 10/04/20 02:31) Angioedema Home Medications: Home Medications Medication Instructions Recorded Confirmed Last Taken Type Amlodipine Besylate [Norvasc] 5 mg PO BID 12/30/16 10/04/20 04/26/19 21:00 History Carvedilol [Coreg] 25 mg PO BIDWM 12/30/16 10/04/20 04/27/19 08:30 History Folic Acid [Folvite] 1 mg PO QDAY #90 tablet 04/10/19 10/04/20 Unknown Rx Nicotine [Habitrol] 7 mg TD QDAY #30 patch 04/10/19 10/04/20 Unknown Rx Tenofovir [Viread] 300 mg PO QDAY #90 tablet 04/10/19 10/04/20 04/27/19 08:00 Rx lamiVUDine [Lamivudine] 150 mg PO DAILY #90 tablet 04/10/19 10/04/20 04/27/19 08:00 Rx Gabapentin 600 mg PO TID 30 Days #180 cap 04/30/19 10/04/20 Unknown Rx Pantoprazole [Protonix TAB] 40 mg PO BID #60 tablet 04/30/19 10/04/20 Unknown Rx Albuterol Mdi (or & Nicu Only) 2 puff IH QID PRN #8.5 gram 07/15/19 10/04/20 Unknown Rx [ProAir HFA Inhaler] Active Medications: Generic Name Dose Route Start Last Admin Trade Name Freq PRN Reason Stop Dose Admin Acetaminophen 650 mg 10/04/20 01:59 10/06/20 21:36 Acetaminophen 325 Mg Tab PO 650 mg Q4H PRN Administration Pain MILD(1-3)/Fever >100.5/SHIRLEY Albuterol 2.5 mg 10/04/20 12:00 Albuterol 2.5 Mg/3 Ml Nebu IH Q4HRT PRN Shortness Of Breath Amlodipine Besylate 5 mg 10/04/20 12:00 10/06/20 21:36 Amlodipine 5 Mg Tab PO 5 mg BID VENKAT Administration Carvedilol 25 mg 10/04/20 12:00 10/06/20 17:24 Carvedilol 25 Mg Tab PO 25 mg 0800,1800 VENKAT Administration Emtricitabine 200 mg 10/05/20 10:00 10/05/20 09:16 Emtricitabine 200 Mg Cap PO 200 mg Q4D VENKAT Administration Folic Acid 1 mg 10/04/20 10:00 10/06/20 09:36 Folic Acid 1 Mg Tab PO 1 mg QDAY VENKAT Administration Gabapentin 300 mg 10/04/20 22:00 10/06/20 21:36 Gabapentin 300 Mg Cap PO 300 mg QHS VENKAT Administration Pantoprazole Sodium 80 mg/ 100 mls @ 10 mls/hr 10/03/20 23:00 10/06/20 21:36 Sodium Chloride IV 8 mg/hr DIRECT VENKAT 10 mls/hr Administration 8 MG/HR Dextrose/Sodium Chloride 1,000 mls @ 45 mls/hr 10/04/20 21:00 10/06/20 12:30 D5ns IV 45 mls/hr DIRECT VENKAT Infusion Sodium Chloride 100 mls @ 999 mls/hr 10/04/20 20:27 Nacl 0.9% IV ALESSANDRO PRN Hypotension Lamivudine 50 mg 10/05/20 10:00 10/06/20 09:35 Lamivudine 50 Mg/5 Ml Oral Liqd PO 50 mg DAILY VENKAT Administration Metoclopramide HCl 5 mg 10/07/20 11:30 Metoclopramide 10 Mg Tab PO ACHS VENKAT Morphine Sulfate 2 mg 10/04/20 01:59 Morphine 2 Mg/1 Ml Inj IV Q4H PRN Pain, Moderate (4-6) Morphine Sulfate 4 mg 10/04/20 01:59 Morphine 4 Mg/1 Ml Inj IV Q4H PRN Pain , Severe (7-10) Nicotine 7 mg 10/04/20 10:00 10/06/20 09:35 Nicotine 7 Mg/24 Hr Patch TD 7 mg QDAY VENKAT Administration Ondansetron HCl 4 mg 10/04/20 01:59 Ondansetron 4 Mg/2 Ml Inj IV Q8H PRN Nausea And Vomiting Sodium Chloride 10 ml 10/04/20 10:00 10/06/20 21:37 Sodium Chloride 0.9% 10 Ml Flush Syringe IV 10 ml BID VENKAT Administration Sodium Chloride 10 ml 10/04/20 01:59 Sodium Chloride 0.9% 10 Ml Flush Syringe IV PRN PRN LINE FLUSH Tenofovir Disoproxil Fumarate 300 mg 10/11/20 10:00 Tenofovir 300 Mg Tab PO Fr@1000 VENKAT
--- NOTE | 2020-10-07 13:08 | Progress Note ---
Assessment and Plan Assessment and plan: 60-year-old female with significant past medical history of end-stage renal disease on dialysisMondays, Wednesdays and Saturdays CVA in the past, hypertension, diabetes mellitus, HIV positive, history of depression presents to the emergency room today complaining of abdominal pain, coffee-ground emesis and melena all of which started about 2 days ago. Abdominal pain is said to be more in the upper abdomen. She denies any intake of nonsteroidal anti-inflammatory medication. She denies any chest pain or shortness of breath, no headache or dizziness and no diaphoresis. Patient denies any fever or chills, denies any hematuria or dysuria. Patient denies any sick contacts and no recent travel. Denies any contact with anyone with COVID-19. She has been compliant with her dialysis. Work-up in the emergency room today reveals hemoglobin of 8.1 and hematocrit of 23.7. Potassium of 5.8, sodium of 136. BNP of 6818 Coffee-ground emesis that subsided upon arrival in the emergency room. She has been started on Protonix drips. 10/05: Patient remains clinically stable although lethargic she has not tried to ambulate and is unsure about exertional dyspnea but no dyspnea at rest. She does appear more lethargic to me than yesterday. She will continue on PPI drip I did discuss with the structural test engineer. Will transfuse patient's 3 units of packed red blood cell and follow [facility] protocol of checking after each transfusion to ensure appropriate response. Resume home medications hold every antiplatelets. 10/06: Patient seen and examined continue supportive care. Noted improvement following transfusion. imaging studies were concerning for dilated, loops with no obstruction. will start the patient on reglan. Tom-endoscopy planned for tomorrow. 10/07: Patient stable at this time, for EGD today report showed as below. Fair prep quality. 2. Normal terminal ileum without blood noted. 3. A ~ 1.5-2 cm pedunculated polyp in the sigmoid colon found. This was removed with hot snare polypectomy after injection of epinephrine mixture. The post polypectomy site was closed with placement of one endoclip. The polyp was retrieved. 4. A few small diverticula in the sigmoid colon. 5. A small superficial mucosa tear in the rectum in the process of attempt for retroflexion in the rectum. RECOMMENDATIONS: 1. Clear liquid diet. 2. Monitor H/H and for signs of bleeding. 3. Switch PPI to PO tomorrow if H/H stable. 4. Will need repeat colonoscopy with better clean out as outpatient within 3-6 months. Will monitor H/H in a few hours and also in AM. Will also start on Reglan and monitor abdominal discomfort. (1) GI bleed Current Visit: No Status: Acute Qualifiers: GI bleed type/associated pathology: unspecified gastrointestinal hemorrhage type Qualified Code(s): K92.2 - Gastrointestinal hemorrhage, unspecified Plan to address problem: Patient has been placed n.p.o. She has been started on Protonix drip. Consult placed to gastroenterology for evaluation. (2) Hyperkalemia Current Visit: No Status: Acute Plan to address problem: Patient has had Kayexalate in the emergency room. We will monitor EKG and also monitor potassium levels. (3) HIV (human immunodeficiency virus infection) Current Visit: No Status: Chronic Qualifiers: HIV symptom status: unspecified Qualified Code(s): B20 - Human immunodeficiency virus [HIV] disease Plan to address problem: CD4 count unknown. We will continue routine home medications. Patient encouraged to follow-up with infectious disease. (4) Anemia Current Visit: No Status: Acute Qualifiers: Anemia type: unspecified type Qualified Code(s): D64.9 - Anemia, unspecified Plan to address problem: We will monitor CBC. (5) IDDM (insulin dependent diabetes mellitus) Current Visit: No Status: Chronic Plan to address problem: Patient placed on sliding scale insulin. We will monitor Accu-Cheks. (6) HTN (hypertension) Current Visit: No Status: Chronic Qualifiers: Hypertension type: essential hypertension Plan to address problem: Blood pressure appears stable. We will monitor closely. We will resume routine home medications when patient is able to tolerate p.o. intake. (7) DVT prophylaxis Current Visit: No Status: Acute Plan to address problem: And placed on sequential compression device. (8) Full code status Current Visit: No Status: Acute Plan to address problem: Patient is full code History Interval history: Patient seen and examined today no acute distress. FOR EGD today, had c omplained of some nausea Hospitalist Physical - Physical exam Narrative exam: VITAL SIGNS: Reviewed. GENERAL: The patient appears normally developed, Vital signs as documented. HEAD: No signs of head trauma. EYES: Pupils are equal. Extraocular motions intact. EARS: Hearing grossly intact. MOUTH: Oropharynx is normal. NECK: No adenopathy, no JVD. CHEST: Chest with clear breath sounds bilaterally. No wheezes, rales, or rhonchi. CARDIAC: Regular rate and rhythm. S1 and S2, without murmurs, gallops, or rubs. VASCULAR: No Edema. Peripheral pulses normal and equal in all extremities. ABDOMEN: Soft, non tender and non distended. No rebound or guarding, and no masses palpated. Bowel Sounds normal. MUSCULOSKELETAL: Good range of motion of all major joints. Extremities without clubbing, cyanosis or edema. NEUROLOGIC EXAM: Alert and oriented x 3 she appears a bit drowsy. No focal sensory or strength deficits. Speech normal. Follows commands. PSYCHIATRIC: Mood normal. SKIN: detail exam as documented in skin assessment - Constitutional Vitals: Temp Pulse Resp BP Pulse Ox 97.7 F 65 18 141/68 100 10/07/20 12:11 10/07/20 12:11 10/07/20 12:11 10/07/20 12:11 10/07/20 12:11 General appearance: Present: no acute distress, well-nourished Results - Labs CBC & Chem 7: 10/07/20 04:20 10/07/20 04:20 Labs: Laboratory Last Values WBC 5.4 K/mm3 (4.5-11.0) 10/07/20 04:20 RBC 2.44 M/mm3 (3.65-5.03) L 10/07/20 04:20 Hgb 8.4 gm/dl (10.1-14.3) L 10/07/20 04:20 Hct 23.5 % (30.3-42.9) L 10/07/20 04:20 MCV 96 fl (79-97) 10/07/20 04:20 MCH 35 pg (28-32) H 10/07/20 04:20 MCHC 36 % (30-34) H 10/07/20 04:20 RDW 14.6 % (13.2-15.2) 10/07/20 04:20 Plt Count 148 K/mm3 (140-440) 10/07/20 04:20 Lymph % (Auto) 27.4 % (13.4-35.0) 10/05/20 06:56 [place] % (Auto) 8.5 % (0.0-7.3) H 10/05/20 06:56 Eos % (Auto) 2.0 % (0.0-4.3) 10/05/20 06:56 Baso % (Auto) 0.6 % (0.0-1.8) 10/05/20 06:56 Lymph # (Auto) 1.3 K/mm3 (1.2-5.4) 10/05/20 06:56 [place] # (Auto) 0.4 K/mm3 (0.0-0.8) 10/05/20 06:56 Eos # (Auto) 0.1 K/mm3 (0.0-0.4) 10/05/20 06:56 Baso # (Auto) 0.0 K/mm3 (0.0-0.1) 10/05/20 06:56 Seg Neutrophils % 61.5 % (40.0-70.0) 10/05/20 06:56 Seg Neutrophils # 2.9 K/mm3 (1.8-7.7) 10/05/20 06:56 PT 14.3 Sec. (12.2-14.9) 10/05/20 06:56 INR 1.06 (0.87-1.13) 10/05/20 06:56 APTT 32.1 Sec. (24.2-36.6) 10/04/20 00:00 Sodium 142 mmol/L (137-145) D 10/07/20 04:20 Potassium 3.5 mmol/L (3.6-5.0) L D 10/07/20 04:20 Chloride 102.5 mmol/L (98-107) 10/07/20 04:20 Carbon Dioxide 25 mmol/L (22-30) D 10/07/20 04:20 Anion Gap 18 mmol/L 10/07/20 04:20 BUN 39 mg/dL (7-17) H 10/07/20 04:20 Creatinine 7.4 mg/dL (0.6-1.2) H 10/07/20 04:20 Estimated GFR 7 ml/min 10/07/20 04:20 BUN/Creatinine Ratio 5 % 10/07/20 04:20 Glucose 83 mg/dL (65-100) 10/07/20 04:20 POC Glucose 85 mg/dL (70-105) 10/07/20 09:41 Calcium 7.1 mg/dL (8.4-10.2) L 10/07/20 04:20 Phosphorus 3.70 mg/dL (2.5-4.5) 10/03/20 04:23 Magnesium 3.20 mg/dL (1.7-2.3) H 10/03/20 04:23 Total Bilirubin 0.20 mg/dL (0.1-1.2) 10/03/20 04:23 AST 11 units/L (5-40) 10/03/20 04:23 ALT 8 units/L (7-56) 10/03/20 04:23 Alkaline Phosphatase 89 units/L (35-129) 10/03/20 04:23 NT-Pro-B Natriuret Pep 6818 pg/mL (0-900) H 10/03/20 04:23 Total Protein 7.8 g/dL (6.3-8.2) 10/03/20 04:23 Albumin 4.6 g/dL (3.9-5) 10/03/20 04:23 Albumin/Globulin Ratio 1.4 % 10/03/20 04:23 Lipase 75 units/L (13-60) H 10/03/20 04:23 Hepatitis A IgM Ab Non-reactive (NonReactive) 10/05/20 09:36 Hep Bs Antigen Nonreactive (Negative) 10/05/20 09:36 Hep B Core IgM Ab Non-reactive (NonReactive) 10/05/20 09:36 Hepatitis C Antibody Non-reactive (NonReactive) 10/05/20 09:36 Blood Type B NEGATIVE 10/05/20 09:36 Antibody Screen Negative 10/05/20 09:36 Crossmatch See Detail 10/05/20 09:36 Allen/IV: Voiding Method Bedpan Active Medications - Current Medications Current Medications: Generic Name Dose Route Start Last Admin Trade Name Freq PRN Reason Stop Dose Admin Acetaminophen 650 mg 10/04/20 01:59 10/06/20 21:36 Acetaminophen 325 Mg Tab PO 650 mg Q4H PRN Administration Pain MILD(1-3)/Fever >100.5/SHIRLEY Albuterol 2.5 mg 10/04/20 12:00 Albuterol 2.5 Mg/3 Ml Nebu IH Q4HRT PRN Shortness Of Breath Amlodipine Besylate 5 mg 10/04/20 12:00 10/06/20 21:36 Amlodipine 5 Mg Tab PO 5 mg BID VENKAT Administration Carvedilol 25 mg 10/04/20 12:00 10/06/20 17:24 Carvedilol 25 Mg Tab PO 25 mg 0800,1800 VENKAT Administration Emtricitabine 200 mg 10/05/20 10:00 10/05/20 09:16 Emtricitabine 200 Mg Cap PO 200 mg Q4D VENKAT Administration Folic Acid 1 mg 10/04/20 10:00 10/06/20 09:36 Folic Acid 1 Mg Tab PO 1 mg QDAY VENKAT Administration Gabapentin 300 mg 10/04/20 22:00 10/06/20 21:36 Gabapentin 300 Mg Cap PO 300 mg QHS VENKAT Administration Pantoprazole Sodium 80 mg/ 100 mls @ 10 mls/hr 10/03/20 23:00 10/06/20 21:36 Sodium Chloride IV 8 mg/hr DIRECT VENKAT 10 mls/hr Administration 8 MG/HR Dextrose/Sodium Chloride 1,000 mls @ 45 mls/hr 10/04/20 21:00 10/06/20 12:30 D5ns IV 45 mls/hr DIRECT VENKAT Infusion Sodium Chloride 100 mls @ 999 mls/hr 10/04/20 20:27 Nacl 0.9% IV ALESSANDRO PRN Hypotension Lamivudine 50 mg 10/05/20 10:00 10/06/20 09:35 Lamivudine 50 Mg/5 Ml Oral Liqd PO 50 mg DAILY VENKAT Administration Metoclopramide HCl 5 mg 10/07/20 11:30 Metoclopramide 10 Mg Tab PO ACHS VENKAT Morphine Sulfate 2 mg 10/04/20 01:59 Morphine 2 Mg/1 Ml Inj IV Q4H PRN Pain, Moderate (4-6) Morphine Sulfate 4 mg 10/04/20 01:59 Morphine 4 Mg/1 Ml Inj IV Q4H PRN Pain , Severe (7-10) Nicotine 7 mg 10/04/20 10:00 10/06/20 09:35 Nicotine 7 Mg/24 Hr Patch TD 7 mg QDAY VENKAT Administration Ondansetron HCl 4 mg 10/04/20 01:59 Ondansetron 4 Mg/2 Ml Inj IV Q8H PRN Nausea And Vomiting Sodium Chloride 10 ml 10/04/20 10:00 10/06/20 21:37 Sodium Chloride 0.9% 10 Ml Flush Syringe IV 10 ml BID VENKAT Administration Sodium Chloride 10 ml 10/04/20 01:59 Sodium Chloride 0.9% 10 Ml Flush Syringe IV PRN PRN LINE FLUSH Tenofovir Disoproxil Fumarate 300 mg 10/11/20 10:00 Tenofovir 300 Mg Tab PO Fr@1000 VENKAT
[2020-10-07] MEDS: METOCLOPRAMIDE 10 MG TAB PO SCH ×3 (13:35→22:10)
[2020-10-07] MEDS: amLODIPine 5 MG TAB PO SCH ×3 (13:36→22:11)
[2020-10-07] MEDS: FOLIC ACID 1 MG TAB PO SCH (13:39)
[2020-10-07] MEDS: lamiVUDine 50 MG/5 ML ORAL LIQD PO SCH (13:40)
[2020-10-07] MEDS: NICOTINE 7 MG/24 HR PATCH TD SCH (13:40)
--- NOTE | 2020-10-07 15:16 | Post Anesthesia Evaluation ---
- Post Anesthesia Evaluation Patient Participated: Yes Airway Patent: Yes Stable Respiratory Function: Yes Nausea/Vomiting: No Temp > 96.8F: Yes Pain Manageable: Yes Adequeate Hydration: Yes Anesthesia Complications: No Block Receding Appropriately: Not Applicable Patient on Ventilator: No
[2020-10-07 19:35] LABS: Mean Corpuscular HGB Conc 36 % (30-34); Mean Corpuscular Volume 94 fl (79-97); Platelet Count 196 K/mm3 (140-440); Red Blood Count 2.97 M/mm3 (3.65-5.03); Red Cell Distribution Width 14.6 % (13.2-15.2)
[2020-10-07] MEDS: PANTOPRAZOLE 80 MG in SODIUM CHLORIDE 0.9% 100 ML IV SCH (22:09)
[2020-10-07] MEDS: D5W/0.9% NACL 1,000 ML IV SCH (22:10)
[2020-10-07] MEDS: ACETAMINOPHEN 325 MG TAB PO PRN (22:11)
[2020-10-07] MEDS: GABAPENTIN 300 MG CAP PO SCH (22:11)
[2020-10-08 05:37] LABS: Hematocrit 23.4 % (30.3-42.9); Hemoglobin 8.2 gm/dl (10.1-14.3); Mean Corpuscular HGB Conc 35 % (30-34); Mean Corpuscular Volume 95 fl (79-97); Platelet Count 194 K/mm3 (140-440); Red Blood Count 2.46 M/mm3 (3.65-5.03); Red Cell Distribution Width 14.6 % (13.2-15.2)
[2020-10-08 06:18] LABS: Calcium 8.3 mg/dL (8.4-10.2)
[2020-10-08] MEDS: D5W/0.9% NACL 1,000 ML IV SCH (06:21)
[2020-10-08] MEDS: METOCLOPRAMIDE 10 MG TAB PO SCH ×4 (07:30→21:23)
[2020-10-08] MEDS: carvediloL 25 MG TAB PO SCH ×2 (09:28→17:17)
[2020-10-08] MEDS: amLODIPine 5 MG TAB PO SCH ×2 (09:28→21:23)
[2020-10-08] MEDS: FOLIC ACID 1 MG TAB PO SCH (09:28)
[2020-10-08] MEDS: lamiVUDine 50 MG/5 ML ORAL LIQD PO SCH (09:28)
[2020-10-08] MEDS: NICOTINE 7 MG/24 HR PATCH TD SCH (11:10)
--- NOTE | 2020-10-08 12:06 | Gastroenterology Progress Note ---
Assessment and Plan 60 yo female with pmh of HIV, gastric AVMs, ESRD on HD here for GI bleed. Last EGD/colon 04/2019 with gastric AVM's that were treated and poor colon cleanse # GI bleed - suspect upper source with coffee ground emesis and melena - Hgb down to 4 and s/p 3 units of PRBC with appropriate response to Hgb of 8. - s/p EGD/colonoscopy on 10/07/2020 EGD : 1. Normal esophagus exam. 2. Mild erythematous mucosa in the antrum and body. 3. A small mucosal lesion, possible AVM but not with a typical AVM appearance in the duodenal bulb with mild oozing blood. Epinephrine 1:10,000 mixture injections performed followed by gold probe cautery of the lesion. Hemostasis achieved. 4. Polypoid appearing mucosa in the duodenal bulb. Biopsies not obtained given bleeding setting. 5. A small nonbleeding duodenal erosion in the 2nd part of the duodenum found. Colonoscopy: fair prep. a 1.5-2.0 TA pedunculated polyp in sigmoid removed, endo clip post polypectomy - no signs of on-going GI bleeding. - abdominal pain this morning with TTP on exam. rec - will switch PPI to PO bid. - monitor H/H - will order CT a/p to evaluate for abdominal pain. - if CT negative and H/H stable, ok for discharge tomorrow with follow up in GI clinic. May need repeat colonoscopy as outpatient given prep quality and polyp. - Patient Problems (1) Coffee ground emesis Current Visit: No Status: Acute (2) GI bleed Current Visit: No Status: Acute Qualifiers: GI bleed type/associated pathology: unspecified gastrointestinal hemorrhage type Qualified Code(s): K92.2 - Gastrointestinal hemorrhage, unspecified Subjective Date of service: 10/08/20 Interval history: Patient underwent EGD/colonoscopy on 10/07/2020. Reports lower abdominal pain. No nausea/vomiting. no BM. Objective - Constitutional Vitals: Temp Pulse Resp BP Pulse Ox 98.3 F 68 18 132/68 98 10/08/20 08:31 10/08/20 09:28 10/08/20 09:00 10/08/20 09:28 10/08/20 09:00 General appearance: no acute distress - EENT Eyes: EOM intact ENT: hearing intact - Respiratory Respiratory effort: normal - Cardiovascular Rhythm: regular Heart Sounds: Present: S1 & S2 - Gastrointestinal General gastrointestinal: Present: soft, tender, non-distended, normal bowel sounds - Neurologic Neurological: alert and oriented x3 - Labs CBC & Chem 7: 10/08/20 04:52 10/08/20 04:52 Labs: Laboratory Results - last 24 hr 10/07/20 10/07/20 10/08/20 19:00 21:04 04:52 WBC 5.5 4.6 RBC 2.97 L 2.46 L Hgb 10.0 L 8.2 L Hct 28.0 L 23.4 L MCV 94 95 MCH 34 H 33 H MCHC 36 H 35 H RDW 14.6 14.6 Plt Count 196 194 Sodium Potassium Chloride Carbon Dioxide Anion Gap BUN Creatinine Estimated GFR BUN/Creatinine Ratio Glucose POC Glucose 94 Calcium 10/08/20 10/08/20 10/08/20 04:52 08:31 11:57 WBC RBC Hgb Hct MCV MCH MCHC RDW Plt Count Sodium 144 Potassium 3.5 L Chloride 105.7 Carbon Dioxide 30 Anion Gap 12 BUN 12 Creatinine 4.1 H Estimated GFR 13 BUN/Creatinine Ratio 3 Glucose 51 L POC Glucose 136 H 107 H Calcium 8.3 L D
--- NOTE | 2020-10-08 13:38 | Progress Note ---
Assessment and Plan 1. ESRD: Patient on maintenance hemodialysis twice a week, M&F. Patient was last dialyzed 09/30. Hemodialysis: 10/05, 10/07. 2. FEN: Hyperkalemia, s/p HD, monitor. Anion-gap metabolic acidosis, s/p HD, monitor. Monitor lytes and volume status. 3. Coffee-ground emesis: On Protonix drip. Followed by GI. Monitor. 4. Acute blood loss Anemia, POA: S/p 3 units of PRBC with HD 10/05. Epogen with HD. Monitor H/H. Transfuse as needed. 5. HIV: Continue home meds. 6. DM type 2. 7. Hypertension: BP controlled. Subjective: Patient was seen and examined at the bedside. Doing better. Examination: General appearance: well-developed, appears stated age, not in distress HEENT: atraumatic, GIDEON Neck: trachea midline Respiratory: ctab Heart: S1S2, no murmur Abdomen: soft, bowel sounds heard, NT Integumentary: no obvious rash Neurologic: AO, non-focal Ext: no edema Hemodialysis access: L arm AVF Subjective Date of service: 10/08/20 Objective - Vital Signs Vital signs: Vital Signs - 12hr 10/08/20 10/08/20 10/08/20 03:38 08:00 08:31 Temperature 98.3 F 98.3 F Pulse Rate 62 73 67 Pulse Rate [ From Monitor] Respiratory 18 18 Rate Blood Pressure 130/65 140/73 O2 Sat by Pulse 100 100 Oximetry 10/08/20 10/08/20 10/08/20 09:00 09:28 12:29 Temperature 97.7 F Pulse Rate 68 67 Pulse Rate [ 72 From Monitor] Respiratory 18 20 Rate Blood Pressure 132/68 115/51 O2 Sat by Pulse 98 100 Oximetry - Lab 10/08/20 04:52 10/08/20 04:52 Most recent lab results Calcium 8.3 mg/dL (8.4-10.2) L D 10/08/20 04:52 Phosphorus 3.70 mg/dL (2.5-4.5) 10/03/20 04:23 Magnesium 3.20 mg/dL (1.7-2.3) H 10/03/20 04:23 Medications & Allergies - Medications Allergies/Adverse Reactions: Allergies lisinopril Allergy (Severe, Verified 10/04/20 02:31) Angioedema Home Medications: Home Medications Medication Instructions Recorded Confirmed Last Taken Type Amlodipine Besylate [Norvasc] 5 mg PO BID 12/30/16 10/04/20 04/26/19 21:00 History Carvedilol [Coreg] 25 mg PO BIDWM 12/30/16 10/04/20 04/27/19 08:30 History Folic Acid [Folvite] 1 mg PO QDAY #90 tablet 04/10/19 10/04/20 Unknown Rx Nicotine [Habitrol] 7 mg TD QDAY #30 patch 04/10/19 10/04/20 Unknown Rx Tenofovir [Viread] 300 mg PO QDAY #90 tablet 04/10/19 10/04/20 04/27/19 08:00 Rx lamiVUDine [Lamivudine] 150 mg PO DAILY #90 tablet 04/10/19 10/04/20 04/27/19 0 8:00 Rx Gabapentin 600 mg PO TID 30 Days #180 cap 04/30/19 10/04/20 Unknown Rx Pantoprazole [Protonix TAB] 40 mg PO BID #60 tablet 04/30/19 10/04/20 Unknown Rx Albuterol Mdi (or & Nicu Only) 2 puff IH QID PRN #8.5 gram 07/15/19 10/04/20 Unknown Rx [ProAir HFA Inhaler] Active Medications: Generic Name Dose Route Start Last Admin Trade Name Freq PRN Reason Stop Dose Admin Acetaminophen 650 mg 10/04/20 01:59 10/07/20 22:11 Acetaminophen 325 Mg Tab PO 650 mg Q4H PRN Administration Pain MILD(1-3)/Fever >100.5/SHIRLEY Albuterol 2.5 mg 10/04/20 12:00 Albuterol 2.5 Mg/3 Ml Nebu IH Q4HRT PRN Shortness Of Breath Amlodipine Besylate 5 mg 10/04/20 12:00 10/08/20 09:28 Amlodipine 5 Mg Tab PO 10/08/20 23:59 5 mg BID VENKAT Administration Amlodipine Besylate 10 mg 10/09/20 10:00 Amlodipine 10 Mg Tab PO DAILY VENKAT Carvedilol 25 mg 10/04/20 12:00 10/08/20 09:28 Carvedilol 25 Mg Tab PO 25 mg 0800,1800 VENKAT Administration Emtricitabine 200 mg 10/05/20 10:00 10/05/20 09:16 Emtricitabine 200 Mg Cap PO 200 mg Q4D VENKAT Administration Folic Acid 1 mg 10/04/20 10:00 10/08/20 09:28 Folic Acid 1 Mg Tab PO 1 mg QDAY VENKAT Administration Gabapentin 300 mg 10/04/20 22:00 10/07/20 22:11 Gabapentin 300 Mg Cap PO 300 mg QHS VENKAT Administration Dextrose/Sodium Chloride 1,000 mls @ 45 mls/hr 10/04/20 21:00 10/08/20 06:21 D5ns IV 45 mls/hr DIRECT VENKAT Administration Sodium Chloride 100 mls @ 999 mls/hr 10/04/20 20:27 Nacl 0.9% IV ALESSANDRO PRN Hypotension Lamivudine 50 mg 10/05/20 10:00 10/08/20 09:28 Lamivudine 50 Mg/5 Ml Oral Liqd PO 50 mg DAILY VENKAT Administration Metoclopramide HCl 5 mg 10/07/20 11:30 10/08/20 11:11 Metoclopramide 10 Mg Tab PO 5 mg ACHS VENKAT Administration Morphine Sulfate 2 mg 10/04/20 01:59 Morphine 2 Mg/1 Ml Inj IV Q4H PRN Pain, Moderate (4-6) Morphine Sulfate 4 mg 10/04/20 01:59 Morphine 4 Mg/1 Ml Inj IV Q4H PRN Pain , Severe (7-10) Nicotine 7 mg 10/04/20 10:00 10/08/20 11:10 Nicotine 7 Mg/24 Hr Patch TD 7 mg QDAY VENKAT Administration Ondansetron HCl 4 mg 10/04/20 01:59 Ondansetron 4 Mg/2 Ml Inj IV Q8H PRN Nausea And Vomiting Pantoprazole Sodium 40 mg 10/08/20 16:30 Pantoprazole 40 Mg Tab PO BIDAC VENKAT Sodium Chloride 10 ml 10/04/20 10:00 10/08/20 09:29 Sodium Chloride 0.9% 10 Ml Flush Syringe IV 10 ml BID VENKAT Administration Sodium Chloride 10 ml 10/04/20 01:59 Sodium Chloride 0.9% 10 Ml Flush Syringe IV PRN PRN LINE FLUSH Tenofovir Disoproxil Fumarate 300 mg 10/11/20 10:00 Tenofovir 300 Mg Tab PO Fr@1000 [facility]
--- NOTE | 2020-10-08 14:22 | Cat Scan Report ---
CT ABDOMEN AND PELVIS WITHOUT CONTRAST INDICATION / CLINICAL INFORMATION: abdominal pain, s/p EGD/colon with polypectomy. TECHNIQUE: Axial CT images were obtained through the abdomen and pelvis without IV contrast. All CT scans at this location are performed using CT dose reduction for ALARA by means of automated exposure control. COMPARISON: CT abdomen and pelvis 10/03/2020 FINDINGS: LOWER CHEST: Right lung subsegmental atelectasis. GALLBLADDER: Gallstones BILE DUCTS: No significant abnormality. PANCREAS: No significant abnormality. SPLEEN: No significant abnormality. ADRENALS: No significant abnormality. RIGHT KIDNEY / URETER: No significant abnormality. LEFT KIDNEY / URETER: No significant abnormality. STOMACH / SMALL BOWEL: No significant abnormality. COLON: No significant abnormality. APPENDIX: Nonvisualized PERITONEUM: No free fluid. No free air. No fluid collection. LYMPH NODES: No significant adenopathy. AORTA / ARTERIES: Moderate atherosclerotic calcification without acute abnormality. IVC / VEINS: No significant abnormality. URINARY BLADDER: No significant abnormality. REPRODUCTIVE ORGANS: No significant abnormality. ADDITIONAL FINDINGS: None. SKELETAL SYSTEM: No significant abnormality. IMPRESSION: 1. No significant abnormality. Specifically no findings of viscus perforation from recent EGD/colonos copy. 2. Cholelithiasis. Signer Name: Nestor Burkett MD Signed: 10/08/2020 2:17 PM Workstation Name: [id number]
--- NOTE | 2020-10-08 14:43 | Progress Note ---
Assessment and Plan Assessment and plan: 60-year-old female with significant past medical history of end-stage renal disease on dialysisMondays, Wednesdays and Saturdays CVA in the past, hypertension, diabetes mellitus, HIV positive, history of depression presents to the emergency room today complaining of abdominal pain, coffee-ground emesis and melena all of which started about 2 days ago. Abdominal pain is said to be more in the upper abdomen. She denies any intake of nonsteroidal anti-inflammatory medication. She denies any chest pain or shortness of breath, no headache or dizziness and no diaphoresis. Patient denies any fever or chills, denies any hematuria or dysuria. Patient denies any sick contacts and no recent travel. Denies any contact with anyone with COVID-19. She has been compliant with her dialysis. Work-up in the emergency room today reveals hemoglobin of 8.1 and hematocrit of 23.7. Potassium of 5.8, sodium of 136. BNP of 6818 Coffee-ground emesis that subsided upon arrival in the emergency room. She has been started on Protonix drips. 10/05: Patient remains clinically stable although lethargic she has not tried to ambulate and is unsure about exertional dyspnea but no dyspnea at rest. She does appear more lethargic to me than yesterday. She will continue on PPI drip I did discuss with the cane stripper. Will transfuse patient's 3 units of packed red blood cell and follow [facility] protocol of checking after each transfusion to ensure appropriate response. Resume home medications hold every antiplatelets. 10/06: Patient seen and examined continue supportive care. Noted improvement following transfusion. imaging studies were concerning for dilated, loops with no obstruction. will start the patient on reglan. Tom-endoscopy planned for tomorrow. 10/07: Patient stable at this time, for EGD today report showed as below. 10/08; Patient has some tenderness on palpation and GI recommends CT abdomen and pelvis, which was negative. GI recommends to keep the patient overnight and if stable will be discharge tomorrow morning. Fair prep quality. 2. Normal terminal ileum without blood noted. 3. A ~ 1.5-2 cm pedunculated polyp in the sigmoid colon found. This was removed with hot snare polypectomy after injection of epinephrine mixture. The post polypectomy site was closed with placement of one endoclip. The polyp was retrieved. 4. A few small diverticula in the sigmoid colon. 5. A small superficial mucosa tear in the rectum in the process of attempt for retroflexion in the rectum. RECOMMENDATIONS: 1. Clear liquid diet. 2. Monitor H/H and for signs of bleeding. 3. Switch PPI to PO tomorrow if H/H stable. 4. Will need repeat colonoscopy with better clean out as outpatient within 3-6 months. Will monitor H/H in a few hours and also in AM. Will also start on Reglan and monitor abdominal discomfort. (1) GI bleed Current Visit: No Status: Acute Qualifiers: GI bleed type/associated pathology: unspecified gastrointestinal hemorrhage type Qualified Code(s): K92.2 - Gastrointestinal hemorrhage, unspecified Plan to address problem: Patient has been placed n.p.o. She has been started on Protonix drip. Consult placed to gastroenterology for evaluation. (2) Hyperkalemia Current Visit: No Status: Acute Plan to address problem: Patient has had Kayexalate in the emergency room. We will monitor EKG and also monitor potassium levels. (3) HIV (human immunodeficiency virus infection) Current Visit: No Status: Chronic Qualifiers: HIV symptom status: unspecified Qualified Code(s): B20 - Human immunodeficiency virus [HIV] disease Plan to address problem: CD4 count unknown. We will continue routine home medications. Patient encouraged to follow-up with infectious disease. (4) Anemia Current Visit: No Status: Acute Qualifiers: Anemia type: unspecified type Qualified Code(s): D64.9 - Anemia, unspecified Plan to address problem: We will monitor CBC. (5) IDDM (insulin dependent diabetes mellitus) Current Visit: No Status: Chronic Plan to address problem: Patient placed on sliding scale insulin. We will monitor Accu-Cheks. (6) HTN (hypertension) Current Visit: No Status: Chronic Qualifiers: Hypertension type: essential hypertension Plan to address problem: Blood pressure appears stable. We will monitor closely. We will resume routine home medications when patient is able to tolerate p.o. intake. (7) DVT prophylaxis Current Visit: No Status: Acute Plan to address problem: And placed on sequential compression device. (8) Full code status Current Visit: No Status: Acute Plan to address problem: Patient is full code History Interval history: Patient was seen and evaluated this morning Patient H&H was stable Patient has some tenderness on palpation Hospitalist Physical - Physical exam Narrative exam: Not in cardiopulmonary distress. The patient appeared well nourished and normally developed. Vital signs as documented. Head exam is unremarkable. No scleral icterus . Neck is without jugular venous distension, thyromegaly, or carotid bruits. Lungs are clear to auscultation. Cardiac exam reveals regular rate and Rhythm. Abdominal exam reveals palpation on tenderness. Extremities are nonedematous and both femoral and pedal pulses are normal. LEMON PICKER: Alert and oriented 3. No focal weakness. - Constitutional Vitals: Temp Pulse Resp BP Pulse Ox 97.7 F 67 20 115/51 100 10/08/20 12:29 10/08/20 12:29 10/08/20 12:29 10/08/20 12:29 10/08/20 12:29 General appearance: Present: no acute distress, well-nourished Results - Labs CBC & Chem 7: 10/08/20 04:52 10/08/20 04:52 Labs: Laboratory Last Values WBC 4.6 K/mm3 (4.5-11.0) 10/08/20 04:52 RBC 2.46 M/mm3 (3.65-5.03) L 10/08/20 04:52 Hgb 8.2 gm/dl (10.1-14.3) L 10/08/20 04:52 Hct 23.4 % (30.3-42.9) L 10/08/20 04:52 MCV 95 fl (79-97) 10/08/20 04:52 MCH 33 pg (28-32) H 10/08/20 04:52 MCHC 35 % (30-34) H 10/08/20 04:52 RDW 14.6 % (13.2-15.2) 10/08/20 04:52 Plt Count 194 K/mm3 (140-440) 10/08/20 04:52 Lymph % (Auto) 27.4 % (13.4-35.0) 10/05/20 06:56 Garrett % (Auto) 8.5 % (0.0-7.3) H 10/05/20 06:56 Eos % (Auto) 2.0 % (0.0-4.3) 10/05/20 06:56 Baso % (Auto) 0.6 % (0.0-1.8) 10/05/20 06:56 Lymph # (Auto) 1.3 K/mm3 (1.2-5.4) 10/05/20 06:56 Garrett # (Auto) 0.4 K/mm3 (0.0-0.8) 10/05/20 06:56 Eos # (Auto) 0.1 K/mm3 (0.0-0.4) 10/05/20 06:56 Baso # (Auto) 0.0 K/mm3 (0.0-0.1) 10/05/20 06:56 Seg Neutrophils % 61.5 % (40.0-70.0) 10/05/20 06:56 Seg Neutrophils # 2.9 K/mm3 (1.8-7.7) 10/05/20 06:56 PT 14.3 Sec. (12.2-14.9) 10/05/20 06:56 INR 1.06 (0.87-1.13) 10/05/20 06:56 APTT 32.1 Sec. (24.2-36.6) 10/04/20 00:00 Sodium 144 mmol/L (137-145) 10/08/20 04:52 Potassium 3.5 mmol/L (3.6-5.0) L 10/08/20 04:52 Chloride 105.7 mmol/L (98-107) 10/08/20 04:52 Carbon Dioxide 30 mmol/L (22-30) 10/08/20 04:52 Anion Gap 12 mmol/L 10/08/20 04:52 BUN 12 mg/dL (7-17) 10/08/20 04:52 Creatinine 4.1 mg/dL (0.6-1.2) H 10/08/20 04:52 Estimated GFR 13 ml/min 10/08/20 04:52 BUN/Creatinine Ratio 3 % 10/08/20 04:52 Glucose 51 mg/dL (65-100) L 10/08/20 04:52 POC Glucose 112 mg/dL (70-105) H 10/08/20 12:29 Calcium 8.3 mg/dL (8.4-10.2) L D 10/08/20 04:52 Phosphorus 3.70 mg/dL (2.5-4.5) 10/03/20 04:23 Magnesium 3.20 mg/dL (1.7-2.3) H 10/03/20 04:23 Total Bilirubin 0.20 mg/dL (0.1-1.2) 10/03/20 04:23 AST 11 units/L (5-40) 10/03/20 04:23 ALT 8 units/L (7-56) 10/03/20 04:23 Alkaline Phosphatase 89 units/L (35-129) 10/03/20 04:23 NT-Pro-B Natriuret Pep 6818 pg/mL (0-900) H 10/03/20 04:23 Total Protein 7.8 g/dL (6.3-8.2) 10/03/20 04:23 Albumin 4.6 g/dL (3.9-5) 10/03/20 04:23 Albumin/Globulin Ratio 1.4 % 10/03/20 04:23 Lipase 75 units/L (13-60) H 10/03/20 04:23 Hepatitis A IgM Ab Non-reactive (NonReactive) 10/05/20 09:36 Hep Bs Antigen Nonreactive (Negative) 10/05/20 09:36 Hep B Core IgM Ab Non-reactive (NonReactive) 10/05/20 09:36 Hepatitis C Antibody Non-reactive (NonReactive) 10/05/20 09:36 Blood Type B NEGATIVE 10/05/20 09:36 Antibody Screen Negative 10/05/20 09:36 Crossmatch See Detail 10/05/20 09:36 Allen/IV: Voiding Method Bedpan Active Medications - Current Medications Current Medications: Generic Name Dose Route Start Last Admin Trade Name Freq PRN Reason Stop Dose Admin Acetaminophen 650 mg 10/04/20 01:59 10/07/20 22:11 Acetaminophen 325 Mg Tab PO 650 mg Q4H PRN Administration Pain MILD(1-3)/Fever >100.5/SHIRLEY Albuterol 2.5 mg 10/04/20 12:00 Albuterol 2.5 Mg/3 Ml Nebu IH Q4HRT PRN Shortness Of Breath Amlodipine Besylate 5 mg 10/04/20 12:00 10/08/20 09:28 Amlodipine 5 Mg Tab PO 10/08/20 23:59 5 mg BID VENKAT Administration Amlodipine Besylate 10 mg 10/09/20 10:00 Amlodipine 10 Mg Tab PO DAILY VENKAT Carvedilol 25 mg 10/04/20 12:00 10/08/20 09:28 Carvedilol 25 Mg Tab PO 25 mg 0800,1800 VENKAT Administration Emtricitabine 200 mg 10/05/20 10:00 10/05/20 09:16 Emtricitabine 200 Mg Cap PO 200 mg Q4D VENKAT Administration Folic Acid 1 mg 10/04/20 10:00 10/08/20 09:28 Folic Acid 1 Mg Tab PO 1 mg QDAY VENKAT Administration Gabapentin 300 mg 10/04/20 22:00 10/07/20 22:11 Gabapentin 300 Mg Cap PO 300 mg QHS VENKAT Administration Dextrose/Sodium Chloride 1,000 mls @ 45 mls/hr 10/04/20 21:00 10/08/20 06:21 D5ns IV 45 mls/hr DIRECT VENKAT Administration Sodium Chloride 100 mls @ 999 mls/hr 10/04/20 20:27 Nacl 0.9% IV ALESSANDRO PRN Hypotension Lamivudine 50 mg 10/05/20 10:00 10/08/20 09:28 Lamivudine 50 Mg/5 Ml Oral Liqd PO 50 mg DAILY VENKAT Administration Metoclopramide HCl 5 mg 10/07/20 11:30 10/08/20 11:11 Metoclopramide 10 Mg Tab PO 5 mg ACHS VENKAT Administration Morphine Sulfate 2 mg 10/04/20 01:59 Morphine 2 Mg/1 Ml Inj IV Q4H PRN Pain, Moderate (4-6) Morphine Sulfate 4 mg 10/04/20 01:59 Morphine 4 Mg/1 Ml Inj IV Q4H PRN Pain , Severe (7-10) Nicotine 7 mg 10/04/20 10:00 10/08/20 11:10 Nicotine 7 Mg/24 Hr Patch TD 7 mg QDAY VENKAT Administration Ondansetron HCl 4 mg 10/04/20 01:59 Ondansetron 4 Mg/2 Ml Inj IV Q8H PRN Nausea And Vomiting Pantoprazole Sodium 40 mg 10/08/20 16:30 Pantoprazole 40 Mg Tab PO BIDAC VENKAT Sodium Chloride 10 ml 10/04/20 10:00 10/08/20 09:29 Sodium Chloride 0.9% 10 Ml Flush Syringe IV 10 ml BID VENKAT Administration Sodium Chloride 10 ml 10/04/20 01:59 Sodium Chloride 0.9% 10 Ml Flush Syringe IV PRN PRN LINE FLUSH Tenofovir Disoproxil Fumarate 300 mg 10/11/20 10:00 Tenofovir 300 Mg Tab PO Fr@1000 VENKAT
[2020-10-08] MEDS: PANTOPRAZOLE 40 MG TAB PO SCH (17:17)
[2020-10-08] MEDS: GABAPENTIN 300 MG CAP PO SCH (21:22)
[2020-10-09 05:02] LABS: Basophils % (Auto) 0.8 % (0.0-1.8); Eosinophils # (Auto) 0.2 K/mm3 (0.0-0.4); Eosinophils % (Auto) 3.6 % (0.0-4.3); Hematocrit 23.2 % (30.3-42.9); Hemoglobin 8.1 gm/dl (10.1-14.3); Lymphocytes # (Auto) 1.3 K/mm3 (1.2-5.4); Lymphocytes % (Auto) 25.8 % (13.4-35.0); Mean Corpuscular HGB Conc 35 % (30-34); Mean Corpuscular Volume 96 fl (79-97); Monocytes # (Auto) 0.5 K/mm3 (0.0-0.8); Monocytes % (Auto) 9.8 % (0.0-7.3); Platelet Count 209 K/mm3 (140-440); Red Blood Count 2.42 M/mm3 (3.65-5.03); Red Cell Distribution Width 14.7 % (13.2-15.2)
[2020-10-09 05:22] LABS: Calcium 7.4 mg/dL (8.4-10.2)
--- NOTE | 2020-10-09 09:54 | Discharge Summary ---
Providers - Providers Date of Admission: 10/05/20 07:58 Date of discharge: 10/09/20 Attending physician: GABRIEL DEJESUS MD 10/04/20 01:51 Consult to Physician [CONS] Routine Comment: Consulting Provider: ROXY CHEN Physician Instructions: Reason For Exam: gi bleed 10/04/20 18:43 Consult to Physician [CONS] Stat Comment: Consulting Provider: FAN DAWKINS Physician Instructions: Reason For Exam: ESRD Primary care physician: PNOS PNOS Hospitalization Reason for admission: Severe anemia, GI bleed Condition: Stable Hospital course: History of present illness: 60-year-old female with significant past medical history of end-stage renal disease on dialysisMondays, Wednesdays and Saturdays CVA in the past, hypertension, diabetes mellitus, HIV positive, history of depression presents to the emergency room today complaining of abdominal pain, coffee-ground emesis a nd melena all of which started about 2 days ago. Abdominal pain is said to be more in the upper abdomen. She denies any intake of nonsteroidal anti-inflammatory medication. She denies any chest pain or shortness of breath, no headache or dizziness and no diaphoresis. Patient denies any fever or chills, denies any hematuria or dysuria. Patient denies any sick contacts and no recent travel. Denies any contact with anyone with COVID-19. She has been compliant with her dialysis. Work-up in the emergency room today reveals hemoglobin of 8.1 and hematocrit of 23.7. Potassium of 5.8, sodium of 136. BNP of 6818 Coffee-ground emesis that subsided upon arrival in the emergency room. She has been started on Protonix drips. Hospital course 10/05: Patient remains clinically stable although lethargic she has not tried to ambulate and is unsure about exertional dyspnea but no dyspnea at rest. She does appear more lethargic to me than yesterday. She will continue on PPI drip I did discuss with the submersible pilot. Will transfuse patient's 3 units of packed red blood cell and follow [facility] protocol of checking after each transfusion to ensure appropriate response. Resume home medications hold every antiplatelets. 10/06: Patient seen and examined continue supportive care. Noted improvement following transfusion. imaging studies were concerning for dilated, loops with no obstruction. will start the patient on reglan. Tom-endoscopy planned for tomorrow. 10/07: Patient stable at this time, for EGD today report showed as below. 10/08; Patient has some tenderness on palpation and GI recommends CT abdomen and pelvis, which was negative. GI recommends to keep the patient overnight and if stable will be discharge tomorrow morning. Fair prep quality. 2. Normal terminal ileum without blood noted. 3. A ~ 1.5-2 cm pedunculated polyp in the sigmoid colon found. This was removed with hot snare polypectomy after injection of epinephrine mixture. The post polypectomy site was closed with placement of one endoclip. The polyp was retrieved. 4. A few small diverticula in the sigmoid colon. 5. A small superficial mucosa tear in the rectum in the process of attempt for retroflexion in the rectum. RECOMMENDATIONS: 1. Clear liquid diet. 2. Monitor H/H and for signs of bleeding. 3. Switch PPI to PO tomorrow if H/H stable. 4. Will need repeat colonoscopy with better clean out as outpatient within 3-6 months. Will monitor H/H in a few hours and also in AM. Will also start on Reglan and monitor abdominal discomfort. (1) GI bleed Current Visit: No Status: Acute Qualifiers: GI bleed type/associated pathology: unspecified gastrointestinal hemorrhage type Qualified Code(s): K92.2 - Gastrointestinal hemorrhage, unspecified Plan to address problem: Patient has been placed n.p.o. She has been started on Protonix drip. Consult placed to gastroenterology for evaluation. (2) Hyperkalemia Current Visit: No Status: Acute Plan to address problem: Patient has had Kayexalate in the emergency room. We will monitor EKG and also monitor potassium levels. (3) HIV (human immunodeficiency virus infection) Current Visit: No Status: Chronic Qualifiers: HIV symptom status: unspecified Qualified Code(s): B20 - Human immunodeficiency virus [HIV] disease Plan to address problem: CD4 count unknown. We will continue routine home medications. Patient encouraged to follow-up with infectious disease. (4) Anemia Current Visit: No Status: Acute Qualifiers: Anemia type: unspecified type Qualified Code(s): D64.9 - Anemia, unspecified Plan to address problem: We will monitor CBC. (5) IDDM (insulin dependent diabetes mellitus) Current Visit: No Status: Chronic Plan to address problem: Patient placed on sliding scale insulin. We will monitor Accu-Cheks. (6) HTN (hypertension) Current Visit: No Status: Chronic Qualifiers: Hypertension type: essential hypertension Plan to address problem: Blood pressure appears stable. We will monitor closely. We will resume routine home medications when patient is able to tolerate p.o. intake. (7) DVT prophylaxis Current Visit: No Status: Acute Plan to address problem: And placed on sequential compression device. (8) Full code status Current Visit: No Status: Acute Plan to address problem: Patient is full code This morning patient was doing well, no further GI bleed. Patient's hemoglobin was stable at 8.1. CT abdomen and pelvis was negative. Patient was cleared by GI for discharge with Protonix 40 mg p.o. twice daily and will follow with GI in the office for colonoscopy. Patient was hemodynamically stable. Patient was given a paper prescription for Protonix and discharged home. Patient advised to have follow-up with her primary care physician. Patient's questions and concerns were addressed at the bedside. Disposition: DC-01 TO HOME OR SELFCARE Final Discharge Diagnosis (Prints w/discharge instructions): Severe anemia,. GI bleed. 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 (2) ESRD (end stage renal disease) on dialysis Status: Chronic (3) HIV (human immunodeficiency virus infection) Status: Chronic Qualifiers: HIV symptom status: asymptomatic (4) HTN (hypertension) Status: Chronic Qualifiers: Hypertension type: essential hypertension (5) IDDM (insulin dependent diabetes mellitus) Status: Chronic (6) Peripheral neuropathy Status: Chronic Qualifiers: Peripheral neuropathy type: polyneuropathy, unspecified Qualified Code(s): G62.9 - Polyneuropathy, unspecified Core Measure Documentation - Palliative Care Palliative Care/ Comfort Measures: Not Applicable - Core Measures Any of the following diagnoses?: none Exam - Physical Exam Narrative exam: Not in cardiopulmonary distress. The patient appeared well nourished and normally developed. Vital signs as documented. Head exam is unremarkable. No scleral icterus . Neck is without jugular venous distension, thyromegaly, or carotid bruits. Lungs are clear to auscultation. Cardiac exam reveals regular rate and Rhythm. Abdominal exam reveals palpation on tenderness. Extremities are nonedematous and both femoral and pedal pulses are normal. ELECTRONIC COMPONENTS ASSEMBLER: Alert and oriented 3. No focal weakness. - Constitutional Vitals: Temp Pulse Resp BP Pulse Ox 98.0 F 64 18 150/73 98 10/09/20 04:08 10/09/20 04:08 10/09/20 04:08 10/09/20 04:08 10/09/20 04:08 Plan Activity: no restrictions Weight Bearing Status: Full Weight Bearing Diet: low salt, diabetic, renal Follow up with: LACEY NOYOLA [Other] - 3-5 Days MIN,VASYL BECK MD [Staff Physician] - 7 Days (4 weeks) Prescriptions: Pantoprazole [Protonix TAB] 40 mg PO BIDAC #60 tablet
[2020-10-09] MEDS ORDERED: amLODIPine 10 MG TAB PO SCH (10:00)
[2020-10-09] MEDS: lamiVUDine 50 MG/5 ML ORAL LIQD PO SCH (10:36)
[2020-10-09] MEDS: NICOTINE 7 MG/24 HR PATCH TD SCH (10:36)
[2020-10-09] MEDS: METOCLOPRAMIDE 10 MG TAB PO SCH (10:36)
[2020-10-09] MEDS: FOLIC ACID 1 MG TAB PO SCH (10:36)
[2020-10-09] MEDS: EMTRICITABINE 200 MG CAP PO SCH (10:37)
[2020-10-09 10:40] VITALS: BP 144/77
[2020-10-09] MEDS: carvediloL 25 MG TAB PO SCH (10:40)
[2020-10-09] MEDS: PANTOPRAZOLE 40 MG TAB PO SCH (10:40)
--- NOTE | 2020-10-09 11:08 | Gastroenterology Progress Note ---
Assessment and Plan 60 yo female with pmh of HIV, gastric AVMs, ESRD on HD here for GI bleed. Last EGD/colon 04/2019 with gastric AVM's that were treated and poor colon cleanse # GI bleed - suspect upper source with coffee ground emesis and melena - Hgb down to 4 and s/p 3 units of PRBC with appropriate response to Hgb of 8. - s/p EGD/colonoscopy on 10/07/2020 EGD : 1. Normal esophagus exam. 2. Mild erythematous mucosa in the antrum and body. 3. A small mucosal lesion, possible AVM but not with a typical AVM appearance in the duodenal bulb with mild oozing blood. Epinephrine 1:10,000 mixture injections performed followed by gold probe cautery of the lesion. Hemostasis achieved. 4. Polypoid appearing mucosa in the duodenal bulb. Biopsies not obtained given bleeding setting. 5. A small nonbleeding duodenal erosion in the 2nd part of the duodenum found. Colonoscopy: fair prep. a 1.5-2.0 TA pedunculated polyp in sigmoid removed, endo clip post polypectomy - no signs of on-going GI bleeding. - Repeat CT negative. - abdominal pain improving. rec - ok for discharge home today per GI standpoint on PPI oral. Follow up in Gi clinic. - recommend repeat colonoscopy as outpatient given prep quality and polyp finding. Path was TA. - will sign off. - Patient Problems (1) Coffee ground emesis Current Visit: No Status: Acute (2) GI bleed Current Visit: No Status: Acute Qualifiers: GI bleed type/associated pathology: unspecified gastrointestinal hemorrhage type Qualified Code(s): K92.2 - Gastrointestinal hemorrhage, unspecified Subjective Date of service: 10/09/20 Interval history: Patient doing well. Abdominal pain better. No bleeding. Objective - Constitutional Vitals: Temp Pulse Resp BP Pulse Ox 98.0 F 63 18 144/77 98 10/09/20 04:08 10/09/20 10:40 10/09/20 04:08 10/09/20 10:40 10/09/20 04:08 General appearance: no acute distress - EENT Eyes: EOM intact ENT: hearing intact - Respiratory Respiratory effort: normal - Cardiovascular Rhythm: regular Heart Sounds: Present: S1 & S2 - Gastrointestinal General gastrointestinal: Present: soft, non-tender, non-distended - Integumentary Integumentary: Present: clear, warm - Neurologic Neurological: alert and oriented x3 - Labs CBC & Chem 7: 10/09/20 03:58 10/09/20 03:58 Labs: Laboratory Results - last 24 hr 10/08/20 10/08/20 10/08/20 11:57 12:29 16:01 WBC RBC Hgb Hct MCV MCH MCHC RDW Plt Count Lymph % (Auto) Bowman % (Auto) Eos % (Auto) Baso % (Auto) Lymph # (Auto) Bowman # (Auto) Eos # (Auto) Baso # (Auto) Seg Neutrophils % Seg Neutrophils # Sodium Potassium Chloride Carbon Dioxide Anion Gap BUN Creatinine Estimated GFR BUN/Creatinine Ratio Glucose POC Glucose 107 H 112 H 88 Calcium 10/08/20 10/09/20 10/09/20 20:44 03:58 03:58 WBC 5.0 RBC 2.42 L Hgb 8.1 L Hct 23.2 L MCV 96 MCH 34 H MCHC 35 H RDW 14.7 Plt Count 209 Lymph % (Auto) 25.8 Bowman % (Auto) 9.8 H Eos % (Auto) 3.6 Baso % (Auto) 0.8 Lymph # (Auto) 1.3 Bowman # (Auto) 0.5 Eos # (Auto) 0.2 Baso # (Auto) 0.0 Seg Neutrophils % 60.0 Seg Neutrophils # 3.0 Sodium 142 Potassium 3.7 Chloride 105.5 Carbon Dioxide 25 Anion Gap 15 BUN 21 H Creatinine 6.0 H Estimated GFR 9 BUN/Creatinine Ratio 4 Glucose 90 POC Glucose 142 H Calcium 7.4 L
--- NOTE | 2020-10-09 11:30 | Progress Note ---
Assessment and Plan 1. ESRD: Patient on maintenance hemodialysis twice a week, M&F. Patient was last dialyzed 09/30. Hemodialysis: 10/05, 10/07. 2. FEN: Hyperkalemia, s/p HD, monitor. Anion-gap metabolic acidosis, s/p HD, monitor. Monitor lytes and volume status. 3. Coffee-ground emesis: On Protonix. Followed by GI. Monitor. 4. Acute blood loss Anemia, POA: S/p 3 units of PRBC with HD 10/05. Epogen with HD. Monitor H/H. Transfuse as needed. 5. HIV: Continue home meds. 6. DM type 2. 7. Hypertension: BP controlled. Subjective: Patient was seen and examined at the bedside. Doing better. Examination: General appearance: well-developed, appears stated age, not in distress HEENT: atraumatic, GIDEON Neck: trachea midline Respiratory: ctab Heart: S1S2, no murmur Abdomen: soft, bowel sounds heard, NT Integumentary: no obvious rash Neurologic: AO, non-focal Ext: no edema Hemodialysis access: L arm AVF Subjective Date of service: 10/09/20 Objective - Vital Signs Vital signs: Vital Signs - 12hr 10/08/20 10/09/20 10/09/20 23:45 04:08 08:00 Temperature 98.4 F 98.0 F Pulse Rate 72 64 63 Respiratory 18 18 Rate Blood Pressure 134/69 150/73 O2 Sat by Pulse 99 98 Oximetry 10/09/20 10:40 Temperature Pulse Rate 63 Respiratory Rate Blood Pressure 144/77 O2 Sat by Pulse Oximetry - Lab 10/09/20 03:58 10/09/20 03:58 Most recent lab results Calcium 7.4 mg/dL (8.4-10.2) L 10/09/20 03:58 Phosphorus 3.70 mg/dL (2.5-4.5) 10/03/20 04:23 Magnesium 3.20 mg/dL (1.7-2.3) H 10/03/20 04:23 Medications & Allergies - Medications Allergies/Adverse Reactions: Allergies lisinopril Allergy (Severe, Verified 10/04/20 02:31) Angioedema Home Medications: Home Medications Medication Instructions Recorded Confirmed Last Taken Type Amlodipine Besylate [Norvasc] 5 mg PO BID 12/30/16 10/04/20 04/26/19 21:00 History Carvedilol [Coreg] 25 mg PO BIDWM 12/30/16 10/04/20 04/27/19 08:30 History Folic Acid [Folvite] 1 mg PO QDAY #90 tablet 04/10/19 10/04/20 Unknown Rx Nicotine [Habitrol] 7 mg TD QDAY #30 patch 04/10/19 10/04/20 Unknown Rx Tenofovir [Viread] 300 mg PO QDAY #90 tablet 04/10/19 10/04/20 04/27/19 08:00 Rx lamiVUDine [Lamivudine] 150 mg PO DAILY #90 tablet 04/10/19 10/04/20 04/27/19 08:00 Rx Gabapentin 600 mg PO TID 30 Days #180 cap 04/30/19 10/04/20 Unknown Rx Albuterol Mdi (or & Nicu Only) 2 puff IH QID PRN #8.5 gram 07/15/19 10/04/20 Unknown Rx [ProAir HFA Inhaler] Pantoprazole [Protonix TAB] 40 mg PO BIDAC #60 tablet 10/09/20 Unknown Rx Active Medications: Generic Name Dose Route Start Last Admin Trade Name Freq PRN Reason Stop Dose Admin Acetaminophen 650 mg 10/04/20 01:59 10/07/20 22:11 Acetaminophen 325 Mg Tab PO 650 mg Q4H PRN Administration Pain MILD(1-3)/Fever >100.5/SHIRLEY Albuterol 2.5 mg 10/04/20 12:00 Albuterol 2.5 Mg/3 Ml Nebu IH Q4HRT PRN Shortness Of Breath Amlodipine Besylate 10 mg 10/09/20 10:00 10/09/20 10:36 Amlodipine 10 Mg Tab PO 10 mg DAILY VENKAT Administration Carvedilol 25 mg 10/04/20 12:00 10/09/20 10:40 Carvedilol 25 Mg Tab PO 25 mg 0800,1800 VENKAT Administration Emtricitabine 200 mg 10/05/20 10:00 10/09/20 10:37 Emtricitabine 200 Mg Cap PO 200 mg Q4D VENKAT Administration Folic Acid 1 mg 10/04/20 10:00 10/09/20 10:36 Folic Acid 1 Mg Tab PO 1 mg QDAY VENKAT Administration Gabapentin 300 mg 10/04/20 22:00 10/08/20 21:22 Gabapentin 300 Mg Cap PO 300 mg QHS VENKAT Administration Dextrose/Sodium Chloride 1,000 mls @ 45 mls/hr 10/04/20 21:00 10/08/20 06:21 D5ns IV 45 mls/hr DIRECT VENKAT Administration Sodium Chloride 100 mls @ 999 mls/hr 10/04/20 20:27 Nacl 0.9% IV ALESSANDRO PRN Hypotension Lamivudine 50 mg 10/05/20 10:00 10/09/20 10:36 Lamivudine 50 Mg/5 Ml Oral Liqd PO 50 mg DAILY VENKAT Administration Metoclopramide HCl 5 mg 10/07/20 11:30 10/09/20 10:36 Metoclopramide 10 Mg Tab PO 5 mg ACHS VENKAT Administration Morphine Sulfate 2 mg 10/04/20 01:59 Morphine 2 Mg/1 Ml Inj IV Q4H PRN Pain, Moderate (4-6) Morphine Sulfate 4 mg 10/04/20 01:59 Morphine 4 Mg/1 Ml Inj IV Q4H PRN Pain , Severe (7-10) Nicotine 7 mg 10/04/20 10:00 10/09/20 10:36 Nicotine 7 Mg/24 Hr Patch TD 7 mg QDAY VENKAT Administration Ondansetron HCl 4 mg 10/04/20 01:59 Ondansetron 4 Mg/2 Ml Inj IV Q8H PRN Nausea And Vomiting Pantoprazole Sodium 40 mg 10/08/20 16:30 10/09/20 10:40 Pantoprazole 40 Mg Tab PO 40 mg BIDAC VENKAT Administration Sodium Chloride 10 ml 10/04/20 10:00 10/09/20 10:47 Sodium Chloride 0.9% 10 Ml Flush Syringe IV 10 ml BID VENKAT Administration Sodium Chloride 10 ml 10/04/20 01:59 Sodium Chloride 0.9% 10 Ml Flush Syringe IV PRN PRN LINE FLUSH Tenofovir Disoproxil Fumarate 300 mg 10/11/20 10:00 Tenofovir 300 Mg Tab PO Fr@1000 [facility]
[2020-10-11] MEDS ORDERED: TENOFOVIR 300 MG TAB PO SCH (10:00)
[2020-10-13] MEDS ORDERED: EMTRICITABINE 200 MG CAP PO SCH (12:00)
== END 2020-10-09 17:45 | disposition home or self-care (01) | DRG 377 ==
LOC: 4A 10-04 01:59 → OBSVTOIN 10-05 07:58
PROVIDERS: ADMIT Internal Medicine Geriatric Medicine; ATTEND Internal Medicine
PROC: 5A1D70Z Performance of Urinary Filtration, Intermittent, Less than 6 Hours Per Day (ICD-10-PCS; principal; 2020-10-05)
PROC: 30233N1 Transfusion of Nonautologous Red Blood Cells into Peripheral Vein, Percutaneous Approach (ICD-10-PCS; 2020-10-05)
PROC: 5A1D70Z Performance of Urinary Filtration, Intermittent, Less than 6 Hours Per Day (ICD-10-PCS; 2020-10-07)
PROC: 0DJ08ZZ Inspection of Upper Intestinal Tract, Via Natural or Artificial Opening Endoscopic (ICD-10-PCS; 2020-10-07)
PROC: 0DBN8ZX Excision of Sigmoid Colon, Via Natural or Artificial Opening Endoscopic, Diagnostic (ICD-10-PCS; 2020-10-07)
DX: K55.21 Angiodysplasia of colon with hemorrhage (principal); N18.6 End stage renal disease; B20 Human immunodeficiency virus [HIV] disease; D62 Acute posthemorrhagic anemia; I12.0 Hypertensive chronic kidney disease with stage 5 chronic kidney disease or end stage renal disease; E87.5 Hyperkalemia; E11.22 Type 2 diabetes mellitus with diabetic chronic kidney disease; I25.10 Atherosclerotic heart disease of native coronary artery without angina pectoris; M19.90 Unspecified osteoarthritis, unspecified site; D64.9 Anemia, unspecified; F17.210 Nicotine dependence, cigarettes, uncomplicated; F32.9 Major depressive disorder, single episode, unspecified; E11.42 Type 2 diabetes mellitus with diabetic polyneuropathy; Z90.710 Acquired absence of both cervix and uterus; Z99.2 Dependence on renal dialysis; Z86.73 Personal history of transient ischemic attack (TIA), and cerebral infarction without residual deficits; Z79.899 Other long term (current) drug therapy; Z98.891 History of uterine scar from previous surgery; Z88.8 Allergy status to other drugs, medicaments and biological substances; Z79.4 Long term (current) use of insulin
CPT/HCPCS: 36415; 71046; 74176; 80048; 80053; 80074; 82962; 83690; 83735; 83880; 84100; 84132; 85014; 85018; 85025; 85027; 85610; 85730; 86850; 86900; 86901; 86920; 88305; 93005; 94640; 96374; 99406; G0378; C9113; J0171; J1170; J2250; J2405; J2704; J7030; J7042; P9016

== ENCOUNTER 2021-07-19 04:31 | Inpatient (IN) | payer MEDICARE ==
[2021-07-19] MEDS ORDERED: ONDANSETRON 4 MG/2 ML INJ IV ONE (07:03)
--- NOTE | 2021-07-19 07:06 | Emergency Department Report ---
ED General Adult HPI - General Chief complaint: Nausea/Vomiting/Diarrhea Stated complaint: DAVID Time Seen by Provider: 07/19/21 06:24 Source: patient Mode of arrival: Stretcher Limitations: No Limitations - History of Present Illness Initial comments: Patient is 61 years old female with history of end-stage renal disease on hemodialysis. Patient presented to the ER complaining of shortness of breath for the last few days. Patient stated that she missed 3 dialysis session because of transportation issues. Patient denied any chest pain, headache, neck pain. She stated that she has been having some nausea and vomiting also. No fever or chills. -: days(s) (7) Associated Symptoms: denies other symptoms - Related Data Home Medications Medication Instructions Recorded Confirmed Last Taken Amlodipine Besylate [Norvasc] 5 mg PO BID 12/30/16 10/04/20 04/26/19 21:00 Carvedilol [Coreg] 25 mg PO BIDWM 12/30/16 10/04/20 04/27/19 08:30 Previous Rx's Medication Instructions Recorded Last Taken Type Folic Acid [Folvite] 1 mg PO QDAY #90 tablet 04/10/19 Unknown Rx Nicotine [Habitrol] 7 mg TD QDAY #30 patch 04/10/19 Unknown Rx Tenofovir [Viread] 300 mg PO QDAY #90 tablet 04/10/19 04/27/19 08:00 Rx lamiVUDine [Lamivudine] 150 mg PO DAILY #90 tablet 04/10/19 04/27/19 08:00 Rx Gabapentin 600 mg PO TID 30 Days #180 cap 04/30/19 Unknown Rx Albuterol Mdi (or & Nicu Only) 2 puff IH QID PRN #8.5 gram 07/15/19 Unknown Rx [ProAir HFA Inhaler] Pantoprazole [Protonix TAB] 40 mg PO BIDAC #60 tablet 10/09/20 Unknown Rx Allergies Allergy/AdvReac Type Severity Reaction Status Date / Time lisinopril Allergy Severe Angioedema Verified 10/04/20 02:31 ED Review of Systems ROS: Stated complaint: DAVID Other details as noted in HPI Comment: All other systems reviewed and negative Constitutional: denies: chills, fever Respiratory: orthopnea, shortness of breath, SOB with exertion, SOB at rest. denies: cough, wheezing Cardiovascular: denies: chest pain, palpitations Gastrointestinal: nausea, vomiting. denies: abdominal pain, diarrhea, constipation, hematemesis, melena, hematochezia Neurological: denies: headache, weakness, numbness, paresthesias, confusion ED Past Medical Hx - Past Medical History Previous Medical History?: Yes Hx Hypertension: Yes (Denies cardiac symptoms) Hx CVA: Yes (2014, no deficits) Hx Heart Attack/AMI: No Hx Congestive Heart Failure: No Hx Diabetes: Yes Hx Deep Vein Thrombosis: No Hx Pulmonary Embolism: No Hx Liver Disease: No Hx Renal Disease: Yes (07/2017 ESRD M-W-F) Hx Sickle Cell Disease: No Hx Arthritis: (both knee swelling) Hx Seizures: No Hx Kidney Stones: No Hx Psychiatric Treatment: Yes (DEPRESSION) Hx Asthma: No Hx COPD: No Hx Tuberculosis: No Hx Dementia: No Hx HIV: Yes Additional medical history: NEUROPATHY - Surgical History Past Surgical History?: Yes Hx Coronary Stent: No Hx Open Heart Surgery: No Hx Pacemaker: No Hx Internal Defibrillator: No Hx Cholecystectomy: No Hx Appendectomy: No Hx Breast Surgery: No Additional Surgical History: C SECTION, Left Arm AV fistula, right chest permcath. hysterectomy - Social History Smoking Status: Current Every Day Smoker Substance Use Type: None - Medications Home Medications: Home Medications Medication Instructions Recorded Confirmed Last Taken Type Amlodipine Besylate [Norvasc] 5 mg PO BID 12/30/16 10/04/20 04/26/19 21:00 History Carvedilol [Coreg] 25 mg PO BIDWM 12/30/16 10/04/20 04/27/19 08:30 History Folic Acid [Folvite] 1 mg PO QDAY #90 tablet 04/10/19 10/04/20 Unknown Rx Nicotine [Habitrol] 7 mg TD QDAY #30 patch 04/10/19 10/04/20 Unknown Rx Tenofovir [Viread] 300 mg PO QDAY #90 tablet 04/10/19 10/04/20 04/27/19 08:00 Rx lamiVUDine [Lamivudine] 150 mg PO DAILY #90 tablet 04/10/19 10/04/20 04/27/19 08:00 Rx Gabapentin 600 mg PO TID 30 Days #180 cap 04/30/19 10/04/20 Unknown Rx Albuterol Mdi (or & Nicu Only) 2 puff IH QID PRN #8.5 gram 07/15/19 10/04/20 Unknown Rx [ProAir HFA Inhaler] Pantoprazole [Protonix TAB] 40 mg PO BIDAC #60 tablet 10/09/20 Unknown Rx ED Physical Exam - General Limitations: No Limitations General appearance: alert, in no apparent distress - Head Head exam: Present: atraumatic, normocephalic, normal inspection - ENT ENT exam: Present: normal exam, normal orophraynx, mucous membranes moist - Neck Neck exam: Present: normal inspection, full ROM. Absent: tenderness, meningismus - Respiratory Respiratory exam: Present: normal lung sounds bilaterally, decreased breath sounds. Absent: respiratory distress, wheezes - Cardiovascular Cardiovascular Exam: Present: regular rate, normal rhythm, normal heart sounds - GI/Abdominal GI/Abdominal exam: Present: soft, normal bowel sounds. Absent: distended, tenderness, guarding, rebound, rigid, organomegaly, mass, bruit, pulsatile mass, hernia - Extremities Exam Extremities exam: Present: normal inspection, full ROM, normal capillary refill. Absent: tenderness, pedal edema, joint swelling, calf tenderness - Back Exam Back exam: Present: normal inspection, full ROM. Absent: CVA tenderness (R), CVA tenderness (L) - Neurological Exam Neurological exam: Present: alert, oriented X3, CN II-XII intact - Psychiatric Psychiatric exam: Present: normal mood - Skin Skin exam: Present: warm, intact, normal color ED Course Vital Signs 07/19/21 07/19/21 07/19/21 04:45 05:13 05:15 Temperature 98 F Pulse Rate 98 H 85 82 Respiratory 20 13 15 Rate Blood Pressure 166/88 163/86 Blood Pressure [Right] O2 Sat by Pulse 100 100 99 Oximetry 07/19/21 07/19/21 07/19/21 05:31 05:45 06:01 Temperature Pulse Rate 79 80 76 Respiratory 18 15 15 Rate Blood Pressure 159/86 159/86 159/86 Blood Pressure [Right] O2 Sat by Pulse 82 L 98 100 Oximetry 07/19/21 07/19/21 07/19/21 06:15 06:31 06:45 Temperature Pulse Rate 78 77 79 Respiratory 14 17 16 Rate Blood Pressure 159/86 159/86 159/86 Blood Pressure [Right] O2 Sat by Pulse 98 97 98 Oximetry 07/19/21 07/19/21 07/19/21 07:01 07:15 08:20 Temperature Pulse Rate 81 Respiratory 20 Rate Blood Pressure 159/86 159/86 Blood Pressure [Right] O2 Sat by Pulse 100 99 100 Oximetry 07/19/21 07/19/21 07/19/21 08:22 08:23 11:24 Temperature 98.7 F 98.7 F Pulse Rate 76 Respiratory 15 Rate Blood Pressure 162/81 Blood Pressure 167/83 [Right] O2 Sat by Pulse 100 Oximetry ED Medical Decision Making - Lab Data Result diagrams: 07/19/21 10:09 07/19/21 10:09 - EKG Data -: EKG Interpreted by Co EKG shows normal: sinus rhythm Rate: normal - EKG Data Interpretation: no acute changes - Radiology Data Radiology results: report reviewed - Medical Decision Making Patient is 61 years old female with history of end-stage renal disease on hemodialysis. Patient presented to the ER complaining of shortness of breath for the last few days. Patient stated that she missed 3 dialysis session because of transportation issues. Patient denied any chest pain, headache, neck pain. She stated that she has been having some nausea and vomiting also. No fever or chills. Patient found to have a potassium of 6.6. Creatinine of 13 and a BUN of 108. Patient received albuterol, dextrose 50 and insulin. Patient also received calcium chloride. I discussed the patient with Dr. Delgado, bomb technician on- and he stated that he would with dialysis order. I discussed the patient with Dr. Villavicencio, he agreed to admit the patient to medical service for further management. Critical Care Time: Yes Critical care time in (mins) excluding proc time.: 35 Critical care attestation.: If time is entered above; I have spent that time in minutes in the direct care of this critically ill patient, excluding procedure time. ED Disposition Clinical Impression: Acute hyperkalemia, End-stage renal disease needing dialysis Disposition: ADMITTED INPATIENT Is pt being admited?: Yes Condition: Stable
--- NOTE | 2021-07-19 08:07 | XRay Report ---
CHEST 1 VIEW INDICATION / CLINICAL INFORMATION: Dyspnea. COMPARISON: 10/03/2020 FINDINGS: SUPPORT DEVICES: None. HEART / MEDIASTINUM: No significant abnormality. LUNGS / PLEURA: No significant pulmonary or pleural abnormality. No pneumothorax. ADDITIONAL FINDINGS: No significant additional findings. IMPRESSION: 1. No acute findings. No interval change. Signer Name: Georgette Castanon MD Signed: 07/19/2021 8:03 AM Workstation Name: [id number]
[2021-07-19 10:24] LABS: Basophils # (Auto) 0.1 K/mm3 (0.0-0.1); Basophils % (Auto) 1.4 % (0.0-1.8); Eosinophils # (Auto) 0.1 K/mm3 (0.0-0.4); Eosinophils % (Auto) 0.6 % (0.0-4.3); Hemoglobin 10.5 gm/dl (10.1-14.3); Lymphocytes # (Auto) 2.9 K/mm3 (1.2-5.4); Lymphocytes % (Auto) 28.6 % (13.4-35.0); Mean Corpuscular HGB Conc 32 % (30-34); Mean Corpuscular Volume 92 fl (79-97); Monocytes # (Auto) 0.4 K/mm3 (0.0-0.8); Platelet Count 228 K/mm3 (140-440); Red Blood Count 3.59 M/mm3 (3.65-5.03); Red Cell Distribution Width 15.8 % (13.2-15.2)
[2021-07-19 10:36] LABS: INR 1.03 (0.87-1.13)
[2021-07-19 10:37] LABS: Partial Thromboplastin Time 28.1 Sec. (24.2-36.6)
[2021-07-19 11:00] LABS: Calcium 8.6 mg/dL (8.4-10.2)
[2021-07-19] MEDS ORDERED: CALCIUM CHLORIDE 1,000 MG in SODIUM CHLORIDE 0.9% 100 ML IV ONE (11:38)
[2021-07-19] MEDS ORDERED: ALBUTEROL 2.5 MG/3 ML NEBU IH ONE (11:39)
[2021-07-19] MEDS ORDERED: DEXTROSE 50% IN WATER (25GM) 50 ML VIAL IV ONE (11:39)
[2021-07-19] MEDS ORDERED: INSULIN REGULAR, HUMAN 100 UNITS/1 ML IV ONE (11:40)
[2021-07-19] MEDS ORDERED: ACETAMINOPHEN 325 MG TAB PO PRN ×2 (11:59→12:59)
[2021-07-19] MEDS ORDERED: ONDANSETRON 4 MG/2 ML INJ IV PRN ×2 (11:59→12:59)
[2021-07-19] MEDS ORDERED: SODIUM CHLORIDE 0.9% 100 ML IV PRN ×2 (12:10→12:12)
[2021-07-19] MEDS ORDERED: MORPHINE 2 MG/1 ML INJ IV PRN ×2 (12:46→12:59)
[2021-07-19] MEDS ORDERED: oxyCODONE /ACETAMINOPHEN 5-325MG TAB PO PRN (12:59)
[2021-07-19] MEDS ORDERED: METOCLOPRAMIDE 10 MG/2 ML INJ IV PRN (12:59)
[2021-07-19] MEDS ORDERED: CALCIUM GLUCONATE 2,000 MG in SODIUM CHLORIDE 0.9% 100 ML IV ONE (13:03)
[2021-07-19] MEDS ORDERED: SODIUM POLYSTYRENE 15 GM/60 ML ORAL LIQD PO ONE (13:03)
[2021-07-19 13:22] LABS: Hepatitis B Surface Antigen Non-Reactive (Negative); Hepatitis C Virus Antibody Non-Reactive (NonReactive)
[2021-07-19 18:40] VITALS: BP 129/77
--- NOTE | 2021-07-19 18:55 | History and Physical Report ---
History of Present Illness Date of examination: 07/19/21 Date of admission: 07/19/21 12:59 History of present illness: Patient is 61 years old female with history of end-stage renal disease on hemodialysis. Patient presented to the ER complaining of shortness of breath for the last few days. Patient stated that she missed 3 dialysis session because of transportation issues. Patient denied any chest pain, headache, neck pain. She stated that she has been having some nausea and vomiting also. No fever or chills. -: days(s) (7) Associated Symptoms: denies other symptoms - Related Data Home Medications Medication Instructions Recorded Confirmed Last Taken Amlodipine Besylate [Norvasc] 5 mg PO BID 12/30/16 10/04/20 04/26/19 21:00 Carvedilol [Coreg] 25 mg PO BIDWM 12/30/16 10/04/20 04/27/19 08:30 Previous Rx's Medication Instructions Recorded Last Taken Type Folic Acid [Folvite] 1 mg PO QDAY #90 tablet 04/10/19 Unknown Rx Nicotine [Habitrol] 7 mg TD QDAY #30 patch 04/10/19 Unknown Rx Tenofovir [Viread] 300 mg PO QDAY #90 tablet 04/10/19 04/27/19 08:00 Rx lamiVUDine [Lamivudine] 150 mg PO DAILY #90 tablet 04/10/19 04/27/19 08:00 Rx Gabapentin 600 mg PO TID 30 Days #180 cap 04/30/19 Unknown Rx Albuterol Mdi (or & Nicu Only) 2 puff IH QID PRN #8.5 gram 07/15/19 Unknown Rx [ProAir HFA Inhaler] Pantoprazole [Protonix TAB] 40 mg PO BIDAC #60 tablet 10/09/20 Unknown Rx Allergies Allergy/AdvReac Type Severity Reaction Status Date / Time lisinopril Allergy Severe Angioedema Verified 10/04/20 02:31 - Past Medical History --Previous Medical History?: Yes --Hypertension: Yes (Denies cardiac symptoms) --CVA: Yes (2014, no deficits) --Diabetes: Yes --Renal Disease: Yes (07/2017 ESRD M-W-F) --Arthritis: (both knee swelling) --Psychiatric Treatment: Yes (DEPRESSION) --HIV: Yes --Additional medical history: NEUROPATHY - Surgical History --C SECTION, -- Left Arm AV fistula, -- right chest permcath. --hysterectomy - Social History --Smoking Status: Current Every Day Smoker --Substance Use Type: None - Medications Home Medications: Home Medications Medication Instructions Recorded Confirmed Last Taken Type Amlodipine Besylate [Norvasc] 5 mg PO BID 12/30/16 10/04/20 04/26/19 21:00 History Carvedilol [Coreg] 25 mg PO BIDWM 12/30/16 10/04/20 04/27/19 08:30 History Folic Acid [Folvite] 1 mg PO QDAY #90 tablet 04/10/19 10/04/20 Unknown Rx Nicotine [Habitrol] 7 mg TD QDAY #30 patch 04/10/19 10/04/20 Unknown Rx Tenofovir [Viread] 300 mg PO QDAY #90 tablet 04/10/19 10/04/20 04/27/19 08:00 Rx lamiVUDine [Lamivudine] 150 mg PO DAILY #90 tablet 04/10/19 10/04/20 04/27/19 08:00 Rx Gabapentin 600 mg PO TID 30 Days #180 cap 04/30/19 10/04/20 Unknown Rx Albuterol Mdi (or & Nicu Only) 2 puff IH QID PRN #8.5 gram 07/15/19 10/04/20 Unknown Rx [ProAir HFA Inhaler] Pantoprazole [Protonix TAB] 40 mg PO BIDAC #60 tablet 10/09/20 Unknown Rx Review of Systems ROS: Stated complaint: DAVID Other details as noted in HPI Comment: All other systems reviewed and negative Constitutional: denies: chills, fever Respiratory: orthopnea, shortness of breath, SOB with exertion, SOB at rest. denies: cough, wheezing Cardiovascular: denies: chest pain, palpitations Gastrointestinal: nausea, vomiting. denies: abdominal pain, diarrhea, constipation, hematemesis, melena, hematochezia Neurological: denies: headache, weakness, numbness, paresthesias, confusion Medications and Allergies Allergies Allergy/AdvReac Type Severity Reaction Status Date / Time lisinopril Allergy Severe Angioedema Verified 10/04/20 02:31 Home Medications Medication Instructions Recorded Confirmed Last Taken Type Amlodipine Besylate [Norvasc] 5 mg PO BID 12/30/16 10/04/20 04/26/19 21:00 History Carvedilol [Coreg] 25 mg PO BIDWM 12/30/16 10/04/20 04/27/19 08:30 History Folic Acid [Folvite] 1 mg PO QDAY #90 tablet 04/10/19 10/04/20 Unknown Rx Nicotine [Habitrol] 7 mg TD QDAY #30 patch 04/10/19 10/04/20 Unknown Rx Tenofovir [Viread] 300 mg PO QDAY #90 tablet 04/10/19 10/04/20 04/27/19 08:00 Rx lamiVUDine [Lamivudine] 150 mg PO DAILY #90 tablet 04/10/19 10/04/20 04/27/19 08:00 Rx Gabapentin 600 mg PO TID 30 Days #180 cap 04/30/19 10/04/20 Unknown Rx Albuterol Mdi (or & Nicu Only) 2 puff IH QID PRN #8.5 gram 07/15/19 10/04/20 Unknown Rx [ProAir HFA Inhaler] Pantoprazole [Protonix TAB] 40 mg PO BIDAC #60 tablet 10/09/20 Unknown Rx Active Meds: Active Medications Acetaminophen (Acetaminophen 325 Mg Tab) 650 mg PO Q4H PRN PRN Reason: Pain MILD(1-3)/Fever >100.5/SHIRLEY Acetaminophen (Acetaminophen 325 Mg Tab) 650 mg PO Q4H PRN PRN Reason: Pain MILD(1-3)/Fever >100.5/SHIRLEY Heparin Sodium (Porcine) (Heparin 5,000 Unit/1 Ml Vial) 5,000 unit SUB-Q Q12HR VENKAT Sodium Chloride (Nacl 0.9%) 100 mls @ 999 mls/hr IV ALESSANDRO PRN PRN Reason: Hypotension Sodium Chloride (Nacl 0.9%) 100 mls @ 999 mls/hr IV ALESSANDRO PRN PRN Reason: Hypotension Metoclopramide HCl (Metoclopramide 10 Mg/2 Ml Inj) 10 mg IV Q6H PRN PRN Reason: Nausea And Vomiting Morphine Sulfate (Morphine 2 Mg/1 Ml Inj) 2 mg IV Q4H PRN PRN Reason: Pain, Moderate (4-6) Morphine Sulfate (Morphine 2 Mg/1 Ml Inj) 2 mg IV Q4H PRN PRN Reason: Pain, Moderate (4-6) Ondansetron HCl (Ondansetron 4 Mg/2 Ml Inj) 4 mg IV Q8H PRN PRN Reason: Nausea And Vomiting Ondansetron HCl (Ondansetron 4 Mg/2 Ml Inj) 4 mg IV Q8H PRN PRN Reason: Nausea And Vomiting Oxycodone/Acetaminophen (Oxycodone /Acetaminophen 5-325mg Tab) 1 tab PO Q6H PRN PRN Reason: Pain, Moderate (4-6) Sodium Chloride (Sodium Chloride 0.9% 10 Ml Flush Syringe) 10 ml IV BID VENKAT Last Admin: 07/19/21 14:17 Dose: Not Given Sodium Chloride (Sodium Chloride 0.9% 10 Ml Flush Syringe) 10 ml IV PRN PRN PRN Reason: LINE FLUSH Sodium Chloride (Sodium Chloride 0.9% 10 Ml Flush Syringe) 10 ml IV BID VENKAT Sodium Chloride (Sodium Chloride 0.9% 10 Ml Flush Syringe) 10 ml IV PRN PRN PRN Reason: LINE FLUSH Exam - Constitutional Vitals: Temp Pulse Resp BP Pulse Ox 98.5 F 81 18 129/77 97 07/19/21 18:37 07/19/21 18:37 07/19/21 18:37 07/19/21 18:37 07/19/21 18:37 Results - Labs CBC & Chem 7: 07/19/21 10:09 07/19/21 10:09 Labs: Laboratory Last Values WBC 10.0 K/mm3 (4.5-11.0) 07/19/21 10:09 RBC 3.59 M/mm3 (3.65-5.03) L 07/19/21 10:09 Hgb 10.5 gm/dl (10.1-14.3) 07/19/21 10:09 Hct 33.0 % (30.3-42.9) 07/19/21 10:09 MCV 92 fl (79-97) 07/19/21 10:09 MCH 29 pg (28-32) 07/19/21 10:09 MCHC 32 % (30-34) 07/19/21 10:09 RDW 15.8 % (13.2-15.2) H 07/19/21 10:09 Plt Count 228 K/mm3 (140-440) 07/19/21 10:09 Lymph % (Auto) 28.6 % (13.4-35.0) 07/19/21 10:09 Foster % (Auto) 4.0 % (0.0-7.3) 07/19/21 10:09 Eos % (Auto) 0.6 % (0.0-4.3) 07/19/21 10:09 Baso % (Auto) 1.4 % (0.0-1.8) 07/19/21 10:09 Lymph # (Auto) 2.9 K/mm3 (1.2-5.4) 07/19/21 10:09 Foster # (Auto) 0.4 K/mm3 (0.0-0.8) 07/19/21 10:09 Eos # (Auto) 0.1 K/mm3 (0.0-0.4) 07/19/21 10:09 Baso # (Auto) 0.1 K/mm3 (0.0-0.1) 07/19/21 10:09 Seg Neutrophils % 65.4 % (40.0-70.0) 07/19/21 10:09 Seg Neutrophils # 6.5 K/mm3 (1.8-7.7) 07/19/21 10:09 PT 14.7 Sec. (12.2-14.9) 07/19/21 10:09 INR 1.03 (0.87-1.13) 07/19/21 10:09 APTT 28.1 Sec. (24.2-36.6) 07/19/21 10:09 Sodium 143 mmol/L (137-145) 07/19/21 10:09 Potassium 6.6 mmol/L (3.6-5.0) H* 07/19/21 10:09 Chloride 106.6 mmol/L (98-107) 07/19/21 10:09 Carbon Dioxide 18 mmol/L (22-30) L 07/19/21 10:09 Anion Gap 25 mmol/L 07/19/21 10:09 BUN 108 mg/dL (7-17) H 07/19/21 10:09 Creatinine 13.0 mg/dL (0.6-1.2) H 07/19/21 10:09 Estimated GFR 4 ml/min 07/19/21 10:09 BUN/Creatinine Ratio 8 % 07/19/21 10:09 Glucose 136 mg/dL (65-100) H 07/19/21 10:09 Calcium 8.6 mg/dL (8.4-10.2) 07/19/21 10:09 Hepatitis A IgM Ab Non-reactive (NonReactive) 07/19/21 12:32 Hep Bs Antigen Non-reactive (Negative) 07/19/21 12:32 Hep B Core IgM Ab Non-reactive (NonReactive) 07/19/21 12:32 Hepatitis C Antibody Non-reactive (NonReactive) 07/19/21 12:32
--- NOTE | 2021-07-19 19:40 | Discharge Summary ---
Providers - Providers Date of Admission: 07/19/21 12:59 Date of discharge: 07/19/21 Attending physician: EVERT BAKER 07/19/21 11:54 Consult to Physician [CONS] Stat Comment: Consulting Provider: RANDY CARROLL Physician Instructions: Reason For Exam: End-stage renal disease needing dialysis, hyperkal Primary care physician: CRISTAL SOTO Hospitalization Condition: Stable Disposition: 01 HOME / SELF CARE / HOMELESS Exam - Constitutional Vitals: Temp Pulse Resp BP Pulse Ox 98.5 F 81 18 129/77 97 07/19/21 18:37 07/19/21 18:37 07/19/21 18:37 07/19/21 18:37 07/19/21 18:37 General appearance: Present: no acute distress, well-nourished - EENT Eyes: Present: PERRL ENT: hearing intact, clear oral mucosa - Neck Neck: Present: supple, normal ROM - Respiratory Respiratory effort: normal Respiratory: bilateral: CTA - Cardiovascular Heart Sounds: Present: S1 & S2. Absent: rub, click - Extremities Extremities: pulses symmetrical, No edema Peripheral Pulses: within normal limits - Abdominal General gastrointestinal: Present: soft, non-tender, non-distended, normal bowel sounds Female genitourinary: Present: normal - Integumentary Integumentary: Present: clear, warm, dry - Musculoskeletal Musculoskeletal: gait normal, strength equal bilaterally - Psychiatric Psychiatric: appropriate mood/affect, intact judgment & insight - Neurologic Neurologic: CNII-XII intact, moves all extremities Plan Activity: no restrictions Diet: renal Follow up with: CRISTAL SOTO MD [Primary Care Provider] - 3-5 Days
--- NOTE | 2021-07-19 20:20 | Event Note ---
Date: 07/19/21 Ms. Lucille Thacker is medically cleared to undergo dialysis from Wednesday. Patient had hemodialysis today 07/19/2021 and patient's volume overload was cleared. Patient's potassium was corrected. Patient discharged in stable condition. Patient medically cleared to go to hemodialysis center
[2021-07-19] MEDS ORDERED: HEPARIN 5,000 UNIT/1 ML VIAL SUB-Q SCH (22:00)
--- NOTE | 2021-07-20 18:13 | Electrocardiograph Report ---
[facility] Test Date: 2021-07-19 Test Time: 05:27:13 Pat Name: MICHEL HURLEY Department: Room: A383 Gender: F Mysql Developer: ANIKA : 1960 Requested By: KARRIE JEAN Order Number: [id number] Reading MD: Franky Tripp Measurements Intervals [place] Rate: 78 P: -11 [place]: 109 QRS: -5 QRSD: 81 T: 164 QT: 411 QTc: 468 Interpretive Statements Sinus rhythm Probable LVH with secondary repol abnrm Compared to ECG 10/04/2020 02:32:43 Q waves no longer present Electronically Signed On 07-20-2021 18:13:16 EDT by Franky Tripp
== END 2021-07-19 20:25 | disposition home or self-care (01) | DRG 640 ==
LOC: ED 04:31 → 3A 12:59
PROVIDERS: ADMIT Internal Medicine; ATTEND Internal Medicine
PROC: 5A1D70Z Performance of Urinary Filtration, Intermittent, Less than 6 Hours Per Day (ICD-10-PCS; principal; 2021-07-19)
DX: E87.5 Hyperkalemia (principal); N18.6 End stage renal disease; I12.0 Hypertensive chronic kidney disease with stage 5 chronic kidney disease or end stage renal disease; E87.70 Fluid overload, unspecified; F32.9 Major depressive disorder, single episode, unspecified; F17.200 Nicotine dependence, unspecified, uncomplicated; E11.40 Type 2 diabetes mellitus with diabetic neuropathy, unspecified; E11.22 Type 2 diabetes mellitus with diabetic chronic kidney disease; Z90.49 Acquired absence of other specified parts of digestive tract; Z86.73 Personal history of transient ischemic attack (TIA), and cerebral infarction without residual deficits; Z90.710 Acquired absence of both cervix and uterus; Z88.8 Allergy status to other drugs, medicaments and biological substances; Z99.2 Dependence on renal dialysis
CPT/HCPCS: 36415; 71045; 80048; 80074; 85025; 85610; 85730; 93005; G0378; J3490; J0610